=== PATIENT | male | born 1930 | race Caucasian/White ===

== ENCOUNTER → 2017-01-13 | Outpatient (CLI) | payer MEDICARE, MEDICAID ==
[~2017-01-13] MED LIST: ALPR0.254 PO; AMOX-355 PO; AMPH20CA5 PO; APIX2.5T PO; ASP325T; ASP81TEC PO; BETA1TAB15 PO; BISA5TAB8 PO; BUDE10.2 IH; CARV12.52; CARV3.122 PO; CARV6.252 PO; CEFD300C3 PO; CEFU500T63 PO; CHOL2000 PO; CHOL200059 PO; CLPD75T; DEXL30CA2 PO; DILT120C63 PO; DOXY100C2 PO; FLUP2.5T PO; FRSM40T; FURO-124 PO; FURO-125 PO; FURO40TA4 PO; GLIM1TAB PO; HYDR1TAB PO; IRBE300T18 PO; KCL10CCR; LEVO100T7 PO; LEVO112T55 PO; LEVO88TA54 PO; LRT10T; LVT.025T; LVT.088T PO; MAGN400T6 PO; METF500T4 PO; METH4TAB PO; METO-272 PO; MONT10TA24 PO; OMEG-160 PO; OMEG1CAP58 PO; OMEP20CA12 PO; ONDA4TAB8 PO; POTA10CA43 PO; POTA10TA10 PO; POTA10TA36 PO; PRD10T PO; PRD20T PO; PROP15DR OU; RAMI2.5C PO; RMP5C; RT-ALBUINH IH; RT-ALBUINH INH; SENN-36 PO; SIMV20TA3 PO; TIOT18CA2 IH; VIT1CAPS44 PO
--- OUTSIDE RECORDS SUMMARY | 2017-01-13 10:33 | XMS REPORT | Continuity of Care Document ---
Author Author [facility] Organization [facility] Address Unknown Phone Unavailable Care Team Providers Care [employer] Supervisor Name Role Phone DAVID CORDERO MD PCP Insurance Providers Payer Name Policy Number Subscriber Name Relationship Wps Medicare [id number] Benjamin Fulton 18 Self / Same As Patient [employer] [facility] Supp [id number] Benjamin Fulton 18 Self / Same As Patient [facility] [id number] Benjamin Fulton 18 Self / Same As Patient Advance Directives Directive Response Recorded Date/Time Advance Directives Yes 05/31/16 10:05am Health Care Power of Fire Hydrant Operator Nicole Suresh 05/31/16 10:05am Organ Donor No 05/31/16 10:05am Resuscitation Status Full Code 05/31/16 10:05am Chief Complaint and Reason for Visit Chief Complaint PNEUMONIA FX ANKLE Reason for Visit Depression Head ache Severe sepsis Problems Active Problems Medical Problem Onset Date Status Acute bronchitis Unknown Acute CHF (congestive heart failure) Unknown Acute Depression Unknown Acute Head ache Unknown Acute Pleurisy Unknown Acute Pneumonia Unknown Acute Respiratory failure Unknown Acute Severe sepsis Unknown Acute Weakness Unknown Acute Medications Current Home Medications Medication Dose Units Route Directions Days/Qty Instructions Start Date Aspirin 81 Mg 81 Mg Oral Daily 02/02/12 Irbesartan 300 Mg 300 Mg Oral Daily 11/02/15 Carvedilol 6.25 Mg 3.125 Mg Oral Twice A Day TAKES 1/2 (6.25MG) TABLET 11/02/15 Simvastatin 20 Mg 20 Mg Oral Bedtime 11/02/15 Levothyroxine Sodium 88 Mcg 88 Mcg Oral Daily 11/02/15 T[address]ropium [place] 1 Inh 1 Cap Inhalation Daily 11/02/15 Propylene Glycol/Peg 400 15 Ml 1 Drop Each Eye Twice A Day as needed for Dry Eyes 11/02/15 Bisacodyl 5 Mg 5 Mg Oral Bedtime as needed for Constipation 01/20/16 Metformin Hcl 500 Mg 500 Mg Oral Twice A Day 01/20/16 Cholecalciferol (Vitamin D3) 2,000 Unit 2,000 Unit Oral Daily Albuterol Sulfate 18 Gm 2 Puff Inhalation Every 4HRS as needed for Shortness Of Breath 01/21/16 Furosemide 40 Mg 40 Mg Oral Daily 01/21/16 [place]-3/Dha/Epa/Fish Oil 1 Each 1,000 Mg Oral Daily 01/21/16 Magnesium Oxide 400 Mg 400 Mg Oral Daily 04/19/16 Budesonide/Formoterol Fumarate 10.2 Gm 2 Puff Inhalation Twice A Day 04/19/16 Potassium Chloride 10 Meq 10 Meq Oral Daily 06/03/16 Vit C/E/Zn/Coppr/Lutein/Zeaxan 1 Each 1 Cap Oral Twice A Day Cefdinir (Omnicef) 300 Mg 300 Mg Oral Twice A Day 10 06/04/16 Past Home Medications Medication Directions Ordered Status Potassium Chloride 10 Meq Tablet.sa, 09/28/07 Discontinued Loratadine 10 Mg Box, 09/28/07 Discontinued Aspirin 325 Mg Tablet, 09/28/07 Discontinued Levothyroxine Sodium 25 Mcg Tablet, 09/28/07 Discontinued Ramipril 5 Mg Capsule, 09/28/07 Discontinued Clopidogrel Bisulfate 75 Mg Tablet, 09/28/07 Discontinued Carvedilol 12.5 Mg Tablet, 09/28/07 Discontinued Furosemide 40 Mg Tablet, 09/28/07 Discontinued [place]-3/Sturdivant-6/Sturdivant-9 Fatty Acids (Lovaza) 1 Each Capsule, 1000 Mg Oral Daily 02/02/12 Discontinued Ramipril 2.5 Mg Capsule, 2.5 Mg Oral Daily 02/02/12 Discontinued Cholecalciferol 2,000 Unit Capsule, 2000 Unit Oral Daily 03/05/12 Discontinued Simvastatin 20 Mg Tablet, 20 Mg Oral Daily 02/02/12 Discontinued Carvedilol (Coreg) 3.125 Mg Tablet, 1 Each Oral Twice A Day 02/02/12 Discontinued Vit A/Vit C/Vit E/Zinc/Copper 1 Each Tablet, 1 Cap Oral Twice A Day 02/02/12 Discontinued Levothyroxine Sodium (Levothroid) 88 Mcg Tablet, 1 Each Oral Daily 02/02/12 Discontinued Prednisone 20 Mg Tab, 40 Mg Oral Daily 02/20/12 Discontinued Prednisone 20 Mg Tab, 20 Mg Oral Daily 02/20/12 Discontinued Amoxicillin/Clavulanate Potassium 1 Each Tablet, 1 Tab Oral Twice A Day 02/19 Discontinued Acetaminophen/Hydrocodone Bitart 1 Each Tablet, 1 - 2 Each Oral Q4hr Prn 21/11 Discontinued Methylprednisolone 4 Mg/Dose-Pack Tab.ds.pk, 1 Pkt Oral As Directed 11/06/13 Discontinued Doxycycline Hyclate (Vibramycin) 100 Mg Capsule, 100 Mg Oral Twice A Day 07/12 Discontinued Levothyroxine Sodium 112 Mcg Tablet, 112 Mcg Oral Daily 11/02/15 Discontinued Dextroamphetamine/Amphetamine 20 Mg Cap.er.24h, 20 Mg Oral Daily 11/02/15 Discontinued Alprazolam 0.25 Mg Tablet, 0.25 Mg Oral Bedtime as needed for Anxiety Discontinued Dexlansoprazole 30 Mg Cap.bp, 30 Mg Oral Daily 11/02/15 Discontinued Diltiazem Hcl 120 Mg Cap.er.24h, 120 Mg Oral Daily 11/02/15 Discontinued Apixaban 2.5 Mg Tablet, 2.5 Mg Oral Twice A Day 11/02/15 Discontinued Fluphenazine Hcl 2.5 Mg Tablet, 2.5 Mg Oral As Directed 11/02/15 Discontinued Furosemide 20 Mg Tablet, 20 Mg Oral Daily 11/02/15 Discontinued Metoprolol Succinate 50 Mg Tab.er.24h, 50 Mg Oral Daily 11/02/15 Discontinued Omeprazole 20 Mg Capsule., 20 Mg Oral Daily 11/02/15 Discontinued Ondansetron 4 Mg Tab.rapdis, 4 Mg Oral Every 8HRS for Nausea 11/02/15 Discontinued Potassium Chloride 10 Meq Capsule.er, 10 Meq Oral As Directed 11/02/15 Discontinued Metformin Hcl 500 Mg Tablet, 500 Mg Oral Twice A Day 11/02/15 Discontinued Albuterol Sulfate 8.5 Gm Hfa.aer.ad, 2 Puff Inhalation Four Times Daily 11/02 Discontinued Furosemide 40 Mg Tablet, 40 Mg Oral Daily 11/08/15 Discontinued Potassium Chloride 10 Meq Tablet.er, 10 Meq Oral Daily 11/08/15 Discontinued Potassium Chloride 10 Meq Tab.er.prt, 10 Meq Oral Daily 01/21/16 Discontinued Prednisone 10 Mg Tab, 30 Mg Oral Daily 01/22/16 Discontinued Vit C/E/Zn/Coppr/Lutein/Zeaxan 1 Each Capsule, 1 Each Oral Twice A Day Discontinued Montelukast Sodium 10 Mg Tablet, 10 Mg Oral Bedtime 04/19/16 Discontinued Social History Social History Problem Response Recorded Date/Time Alcohol Use Denies Use 05/31/2016 10:08am Recreational Drug Use No 05/31/2016 10:08am Recent Foreign Travel No 05/31/2016 10:19am Recent Infectious Disease Exposure No 05/31/2016 10:19am Hospitalization with Isolation Denies 06/04/2016 12:02pm Sexually Transmitted Disease No 05/31/2016 10:08am Smoking Status Former Smoker 05/31/2016 10:13am Do you dip or chew tobacco? No 05/31/2016 6:52am Query Response Start Date Stop Date Smoking Status Former Smoker 03/30/1986 Hospital Discharge Instructions No hospital discharge instructions. Plan of Care Discharge Date 06/04/16 12:01pm Disposition 01 HOME, SELF-CARE Instructions/Education Provided Bacterial Pneumonia (DC) Prescriptions See Medication Section Care Plan and Goals Functional Status Query Response Date Recorded Patient Orientation Person Normal For Age June 04, 2016 1:40pm Patient Orientation Person Place Time Situation June 04, 2016 12:02pm Comprehension Ability Understands Concepts June 04, 2016 8:00am Allergies, Adverse Reactions, Alerts No known allergies. Immunizations No immunization records. Vital Signs Acute Vital Signs Vital Response Date/Time Temperature (Fahrenheit) 97.2 degrees F (97.6 - 99.5) 06/04/2016 11:58am Temperature (Calculated Celsius) 36.00944 degrees C (36.4 - 37.5) 06/04/2016 6:00am Temperature Source Tympanic 06/04/2016 11:58am Pulse Rate (adult) 90 bpm (60 - 90) 06/04/2016 11:58am Respiratory Rate 20 bpm (12 - 24) 06/04/2016 11:58am O2 Sat by Pulse Oximetry 92 % (88 - 100) 06/04/2016 11:58am Blood Pressure 130/78 mm Hg 06/04/2016 11:58am Blood Pressure Mean 95 mm Hg 06/04/2016 6:00am Pain Numeric Pain Scale 0-No Pain 06/04/2016 11:58am Height (Feet) 5 feet 05/31/2016 10:20am Height (Inches) 11.00 inches 05/31/2016 10:20am Height (Calculated Centimeters) 180.978331 cm 05/31/2016 10:20am Weight (Pounds) 214 pounds 05/31/2016 10:20am Weight (Ounces) 0.0 oz 05/31/2016 10:20am Weight (Calculated Grams) 42386.768 gm 05/31/2016 10:20am Weight (Calculated Kilograms) 97.174355 kilograms 05/31/2016 10:20am Calculated BMI 29.9 05/31/2016 10:20am Results Pending Laboratory Results Test Name Collection Date/Time Pending Microbiology Results Procedure Source Collection Date/Time Procedures Procedure Status Date Provider(s) Tracing only of electrocardiogram Completed 05/31/16 APPLE BOO MD Encounters Encounter Location Arrival/Admit Date Discharge/Depart Date Attending Provider Discharged Inpatient [facility] 05/31/16 8:30am 12:01pm DAVID CORDERO MD Discharged Recurring [facility] 04/10/16 2:30pm 11:59pm WALLY ISSA APRN Recent Diagnosis Depression Head ache Severe sepsis
--- NOTE | 2017-01-16 09:24 | ECHOCARDIOGRAPHY REPORT ---
PROCEDURE PHYSICIAN: ADRIAN DIXON DATE OF PROCEDURE: 01/13/2017 TWO DIMENSIONAL ECHOCARDIOGRAM REPORT PRIMARY PHYSICIAN: Dr. Cuellar OTHER PHYSICIAN: REFERRING PHYSICIAN: ORDERING PHYSICIAN: Dr. Dixon INDICATION FOR THE PROCEDURE: Ischemic cardiomyopathy MEASUREMENTS DERIVED VALUES LV DIAMETER (LAX) NORMALS NORMALS Diastolic 4.7 (3.6-5.2) Eject. Fract. (60%+/-6%) Systolic (2.3-3.9) Diastolic Vol. % Shortening (0.22-0.42) Systolic Vol. Aortic Root 3.4 IVS THICKNESS Diastolic 1.2 (0.6-1.1) LVPW THICKNESS Diastolic 1.2 (0.6-1.1) LA DIAMETER Systolic 5.5 (2.1-3.7) DESCRIPTION: 2-Dimensional echocardiography shows distal septal and apical hypokinesis. Global left ventricular systolic function appears fairly well preserved. Left ventricular ejection fraction is approximately 45%. Aortic, mitral and tricuspid valve leaflets show good leaflet excursion. There is mild mitral annular calcification. There is mild aortic valve sclerosis. There is moderate enlargement of the left atrium. Echodense structures in the right heart are consistent with pacemaker lead/leads. Doppler imaging shows mild mitral, tricuspid and aortic regurgitation. There is no Doppler evidence of significant valvular stenosis. Pulmonary artery systolic pressure is estimated to be approximately 20 mmHg. Good subcostal views are not available. The study is not adequate for analysis of intracardiac shunt. Inferior vena cava does not appear to be dilated. CONCLUSIONS: 1. Mild impairment of global left ventricular systolic function with an ejection fraction of approximately 45%. 2. Distal septal and apical hypokinesis. 3. Mild mitral annular calcification, aortic valve sclerosis without evidence of significant valvular stenosis. 4. Trivial to mild aortic, mitral and tricuspid regurgitation. 5. No evidence of significant valvular stenosis. 6. Pulmonary artery systolic pressure is estimated to be is within normal limits. Job ID: [id number] Dictated Date: 01/15/2017 11:16:00 Can Feeder Date: 01/16/2017 09:15:23 / maciel
== END ==
LOC: CARD 10:29
PROVIDERS: ATTEND Internal Medicine Cardiovascular Disease
DX: I25.10 Atherosclerotic heart disease of native coronary artery without angina pectoris (principal); I25.5 Ischemic cardiomyopathy; J43.8 Other emphysema; E11.9 Type 2 diabetes mellitus without complications
CPT/HCPCS: 93306

== ENCOUNTER 2017-03-24 06:58 | Day surgery (SDC) | payer MEDICARE, MEDICAID ==
[2017-03-24] VITALS (8 sets, daily range): BP systolic 136–163; BP diastolic 71–81
[~2017-03-24] VITALS: Ht 180.3 cm; Wt 105.2 kg
[~2017-03-24 06:58] MED LIST changes: -CEFU500T63 PO; -GLIM1TAB PO; -LEVO100T7 PO; -SENN-36 PO
[2017-03-24] MEDS ORDERED: NS IV 1000 ML 1,000 ML ONE (07:06)
[2017-03-24] MEDS ORDERED: HEParin (CATH LAB) 1,000 ML IV ONE (07:06)
[2017-03-24] MEDS ORDERED: LIDOCAINE 1% INJ 20 ML (XYLOCAINE) VIAL ONE (07:06)
[2017-03-24] MEDS ORDERED: ceFAZolin 1,000 MG (ANCEF) VIAL IV ONE (07:15)
[2017-03-24] MEDS ORDERED: BACITRACIN INJECTION 50,000 UNIT, SODIUM CHLORIDE 0.9% IRRIGATIO 500 ML IR ONE ×2 (07:15)
[2017-03-24] MEDS ORDERED: NS IV 1000 ML 1,000 ML IV SCH (07:30)
[2017-03-24 07:36] LABS: MEAN PLATELET VOLUME 9.4 FL (7.4-10.4); RED BLOOD COUNT 4.14 10^6/uL (4.35-5.85); RED CELL DISTRIBUTION WIDTH 13.9 % (10.0-14.5); WHITE BLOOD COUNT 7.1 10^3/uL (4.3-11.0)
[2017-03-24] MEDS ORDERED: ceFAZolin 1,000 MG (ANCEF) VIAL ONE (07:38)
[2017-03-24] MEDS ORDERED: NS (IVPB) 50 ML ONE (07:39)
[2017-03-24 07:46] LABS: PROTHROMBIN TIME PATIENT 13.1 SEC (12.2-14.7)
[2017-03-24 07:57] LABS: ALANINE AMINOTRANSFERASE 14 U/L (0-55); ALBUMIN 3.8 G/DL (3.2-4.5); ANION GAP 11 MMOL/L (5-14); ASPARTATE AMINO TRANSFERASE 12 U/L (5-34); BILIRUBIN,TOTAL 0.6 MG/DL (0.1-1.0); BLOOD UREA NITROGEN 19 MG/DL (7-18); BUN/CREATININE RATIO 17; CALCIUM 9.1 MG/DL (8.5-10.1); CARBON DIOXIDE 21 MMOL/L (21-32); CHLORIDE 105 MMOL/L (98-107); CHOLESTEROL 110 MG/DL (< 200); CREATININE SERUM 1.13 MG/DL (0.60-1.30); DIRECT LDL 64 MG/DL (1-129); GFR ESTIMATED > 60; GLUCOSE 171 MG/DL (70-105); POTASSIUM 4.5 MMOL/L (3.6-5.0); SODIUM 137 MMOL/L (135-145); TOTAL PROTEIN 7.2 G/DL (6.4-8.2); TRIGLYCERIDES 84 MG/DL (<150); VLDL CHOLESTEROL 17 MG/DL (5-40)
[2017-03-24] MEDS ORDERED: GLIM1TAB PO (08:21)
[2017-03-24] MEDS ORDERED: SENN-36 PO (08:21)
[2017-03-24] MEDS ORDERED: LEVO100T7 PO (08:21)
[2017-03-24] MEDS ORDERED: OMEP20CA12 PO (08:21)
--- NOTE | 2017-03-24 08:49 | Cardiac Procedure Note-CS/ASA ---
Pre-Procedure Note Pre-Op Procedure Note H&P Reviewed The H&P was reviewed, patient examined and no changes noted. Date H&P Reviewed: Mar 24, 2017 Time H&P Reviewed: 08:48 Conscious Sedation Pre-Proced Time Reviewed: 08:48 ASA Class: 3 Airway Mallampati Classification: ([place] appropriate class) I. II. III, IV Lungs Heart ASA score ASA 1: a normal healthy patient ASA 2: a patient with a mild systemic disease (mid diabetes, controlled hypertension, obesity ASA 3: a patient with a severe systemic disease that limits activity (angina , COPD, prior Myocardial infarction) ASA 4: a patient with an incapacitating disease that is a constant threat to life (CHF, renal failure) ASA 5: a moribund patient not expected to survive 24 hrs. (ruptured aneurysm) ASA 6: a declared brain patient whose organs are being harvested. For emergent operations, add the letter E after the classification Grade 3 Sedation Plan: Analgesia, Amnesia, Plan communicated to team members, Discussed options with patient/fam, Discussed risks with patient/fam Note The patient is an appropriate candidate to undergo the planned procedure, sedation, and anesthesia. The patient immediately re-assessed prior to indication. ADRIAN RAMIREZ MD FACP [facility] Mar 24, 2017 08:49
[2017-03-24] MEDS ORDERED: MIDAZOLAM 5 MG/5 ML (VERSED) VIAL ONE (08:50)
[2017-03-24] MEDS ORDERED: diphenhydrAMINE 50 MG/ML INJ (BENADRYL) ONE (08:50)
[2017-03-24] MEDS ORDERED: fentaNYL INJECTION 100 MCG/2 ML AMP ONE (08:50)
[2017-03-24] MEDS ORDERED: NEO/POLY/BAC (NEOSPORIN) OINT 15 GM TUBE ONE (09:46)
[2017-03-24] MEDS ORDERED: CEFU500T63 PO (10:07)
--- NOTE | 2017-03-24 10:11 | Discharge Inst-Post Device ---
Discharge Inst-Post Device Follow up/Plan F/u with Dr Dixon on 03/27/17 Heart Healthy Diet Do not lift arm on side of device placement above head for 1 week Do not push and pull heavy objects for 1 weeks Activity as tolerated. Leave dressing on until follow up at the office. ADRIAN DIXON MD FACP [facility] Mar 24, 2017 10:11
--- NOTE | 2017-03-24 10:12 | Discharge Inst-Cardiology ---
Discharge Inst-Cardiac Discharge Medications New Medications: Cefuroxime Axetil (Cefuroxime) 500 Mg Tablet 500 MG PO BID, #10 TAB 0 Refills Continued Medications: Albuterol Sulfate (Ventolin Hfa) 18 Gm Hfa.aer.ad 2 PUFF INH Q4H PRN for SHORTNESS OF BREATH Aspirin (Aspirin Ec 81 Mg) 81 Mg Tabec 81 MG PO DAILY Budesonide/Formoterol Fumarate (Symbicort 160-4.5 Mcg Inhaler) 10.2 Gm Hfa.aer.ad 2 PUFF IH BID, INHALER Cholecalciferol (Vitamin D3) (Vitamin D-3) 2,000 Unit Tablet 2000 UNIT PO DAILY, TAB Furosemide (Furosemide) 40 Mg Tablet 40 MG PO DAILY, TAB Glimepiride (Glimepiride) 1 Mg Tablet 1 MG PO DAILY, TAB Irbesartan (Irbesartan) 300 Mg Tablet 300 MG PO DAILY, TAB Levothyroxine Sodium (Levothyroxine Sodium) 100 Mcg Tablet 100 MCG PO DAILY, TAB Magnesium Oxide (Magnesium Oxide) 400 Mg Tablet 400 MG PO DAILY, TAB Metformin HCl (Metformin HCl) 500 Mg Tablet 500 MG PO BID, TAB [place]-3/Dha/Epa/Fish Oil (Fish Oil 1,000 mg Softgel) 1 Each Capsule 1000 MG PO DAILY Omeprazole (Omeprazole) 20 Mg Capsule.dr 20 MG PO DAILY, CAP Potassium Chloride (Potassium Chloride) 10 Meq Tablet.er 10 MEQ PO DAILY, TAB Propylene Glycol/Peg 400 (Systane 0.3-0.4% Eye Drops) 15 Ml Drops 1 DROP OU BID PRN for DRY EYES Sennosides (Senokot) 8.6 Mg Tablet 2 TAB PO DAILY PRN for CONSTIPATION-5TH LINE, TAB Simvastatin (Simvastatin) 20 Mg Tablet 20 MG PO HS, TAB Tiotropium [place] (Spiriva) 1 Inh Aerp 1 CAP IH DAILY, EA Vit C/E/Zn/Coppr/Lutein/Zeaxan (Preservision Areds 2 Softgel) 1 Each Capsule 1 CAP PO BID, ADRIAN SIMPSON MD FACP [facility] Mar 24, 2017 10:12
--- NOTE | 2017-03-24 11:46 | Diagnostic Imaging Report ---
INDICATION: Arrhythmia Portable chest 11:25 AM There is a dual-chamber pacemaker. 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 Heart size and pulmonary vascularity are normal. Lungs are clear. There are no effusions or pneumothoraces. IMPRESSION: Negative chest Dictated by: Dictated on workstation # [id number]
--- NOTE | 2017-03-24 11:55 | OPERATIVE REPORT ---
DATE OF SERVICE: 03/24/2017 PREOPERATIVE DIAGNOSIS: Pacemaker at elective replacement indicator. POSTOPERATIVE DIAGNOSIS: Pacemaker at elective replacement indicator. PROCEDURE: Dual-chamber pacemaker pulse generator change. ESTIMATED BLOOD LOSS: Less than 15 cc. INDICATIONS: The patient is an 86-year-old gentleman who had a dual-chamber pacemaker placed by Dr. Liu in [place], [place] in 2002. The pacemaker has reached elective replacement indicator. The informed consent was obtained for pulse generator change. DESCRIPTION OF PROCEDURE: He was brought to the cardiac catheterization laboratory. The left prepectoral area was prepared and draped in the usual sterile fashion. Lidocaine 1% was used for local anesthesia. Sharp and blunt dissection was used to remove the pacemaker from the pacemaker pocket and the pacemaker was detached from the leads. The leads were tested. The right atrial lead is Medtronic model 5076-52 with serial #[id number]. The atrial capture threshold is 1 volt at 0.5 milliseconds. Atrial lead impedance is 514 ohms. P-wave is measured at 1.3 millivolts. The right ventricular lead is Medtronic model 5076-58 with serial #[id number]. The right ventricular capture threshold is 1.4 volts at 0.4 milliseconds. The ventricular lead impedance is 476 ohms. R-waves are measured at 3.8 millivolts. The pacemaker pocket was thoroughly irrigated with an antibiotic solution. Good hemostasis was assured. The leads were attached to a new pulse generator. This is Medtronic Advisa MRI SureScan with serial #[id number]. The leads and the device were placed back in the pocket and the pocket was closed in 2 layers using 3.0 Vicryl. The patient tolerated the procedure well. Job ID: [id number] DocumentID: [id number] Dictated Date: 03/24/2017 09:54:12 Manager Purchasing Date: 03/24/2017 10:55:39 Dictated By: ADRIAN RAMIREZ MD, MA, FACP, FACC,
== END 2017-03-24 12:30 | disposition home or self-care (01) ==
LOC: CATH 06:58 → SURG 10:21 → CATH 12:30
PROVIDERS: ATTEND Nurse Practitioner Family
DX: Z45.010 Encounter for checking and testing of cardiac pacemaker pulse generator [battery] (principal); R00.1 Bradycardia, unspecified; R06.09 Other forms of dyspnea; E03.9 Hypothyroidism, unspecified; I25.10 Atherosclerotic heart disease of native coronary artery without angina pectoris; E11.9 Type 2 diabetes mellitus without complications; J44.9 Chronic obstructive pulmonary disease, unspecified; E78.5 Hyperlipidemia, unspecified; Z95.1 Presence of aortocoronary bypass graft; Z87.891 Personal history of nicotine dependence; Z79.84 Long term (current) use of oral hypoglycemic drugs; Z79.899 Other long term (current) drug therapy
CPT/HCPCS: 33228; 36415; 71010; 80053; 80061; 85027; 85610; 85730; 87081

== ENCOUNTER 2017-08-20 03:21 | Inpatient (IN) | payer MEDICARE, MEDICAID ==
[~2017-08-20] VITALS: Ht 180.3 cm; Wt 105.2 kg
[~2017-08-20 03:21] MED LIST changes: -BUDE10.2 IH; +BUDE10.2 INH; +CEFU500T63 PO; +GLIM1TAB PO; +LEVO100T7 PO; +SENN-36 PO; -TIOT18CA2 IH; +TIOT18CA2 INH
[2017-08-20] MEDS ORDERED: cefTRIAXone 1 GM (ROCEPHIN) VIAL IV STA (03:35)
[2017-08-20] MEDS ORDERED: NS IV 500 ML 500 ML IV ONE ×2 (03:35→04:41)
[2017-08-20] MEDS ORDERED: NS (IVPB) 50 ML ONE (03:37)
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
[2017-08-20] MEDS ORDERED: ACETAMINOPHEN 500 MG TAB (TYLENOL) PO PRN ×2 (03:45→06:45)
[2017-08-20 04:09] LABS: BASOPHILS % (AUTO) 0 % (0-10); EOSINOPHILS # (AUTO) 0.4 10^3/uL (0.0-0.3); EOSINOPHILS % (AUTO) 3 % (0-10); LYMPHOCYTES # (AUTO) 0.5 X 10^3 (1.0-4.0); LYMPHOCYTES % (AUTO) 4 % (12-44); MEAN CORPUSCULAR HEMOGLOBIN 31 PG (25-34); MEAN CORPUSCULAR HGB CONC 32 G/DL (32-36); MEAN CORPUSCULAR VOLUME 97 FL (80-99); MONOCYTES # (AUTO) 0.9 X 10^3 (0.0-1.0); MONOCYTES % (AUTO) 7 % (0-12); NEUTROPHILS % (AUTO) 86 % (42-75); PLATELET COUNT 215 10^3/uL (130-400); RED BLOOD COUNT 4.12 10^6/uL (4.35-5.85); RED CELL DISTRIBUTION WIDTH 14.1 % (10.0-14.5); WHITE BLOOD COUNT 12.9 10^3/uL (4.3-11.0)
[2017-08-20 04:20] LABS: INR 0.9 (0.8-1.4); PROTHROMBIN TIME PATIENT 12.6 SEC (12.2-14.7)
[2017-08-20 04:30] LABS: BAND NEUTROPHILS 1 %; BASOPHILS % (MANUAL) 0 %; EOSINOPHILS % (MANUAL) 2 %; LYMPHOCYTES % (MANUAL) 2 %; NEUTROPHILS % (MANUAL) 88 %; REACTIVE LYMPHOCYTES 2 %
[2017-08-20] MEDS ORDERED: AZITHROMYCIN INJECTION 500 MG in NS (IVPB) 250 ML IV ONE (04:30)
[2017-08-20 04:34] LABS: ALANINE AMINOTRANSFERASE 26 U/L (0-55); ALBUMIN 3.8 GM/DL (3.2-4.5); ANION GAP 13 MMOL/L (5-14); ASPARTATE AMINO TRANSFERASE 22 U/L (5-34); BILIRUBIN,TOTAL 0.6 MG/DL (0.1-1.0); BLOOD UREA NITROGEN 21 MG/DL (7-18); BUN/CREATININE RATIO 21; CALCIUM 8.6 MG/DL (8.5-10.1); CARBON DIOXIDE 21 MMOL/L (21-32); CHLORIDE 105 MMOL/L (98-107); CREATININE SERUM 1.01 MG/DL (0.60-1.30); GFR ESTIMATED > 60; GLUCOSE 115 MG/DL (70-105); MAGNESIUM 1.8 MG/DL (1.8-2.4); POTASSIUM 4.2 MMOL/L (3.6-5.0); SODIUM 139 MMOL/L (135-145); TOTAL PROTEIN 7.5 GM/DL (6.4-8.2); hs C REACTIVE PROTEIN 1.34 MG/DL (0.00-0.50)
[2017-08-20] MEDS ORDERED: NS IV 1000 ML 1,000 ML IV ONE (04:41)
--- NOTE | 2017-08-20 06:12 | Diagnostic Imaging Report ---
PROCEDURE: CT abdomen and pelvis without contrast. TECHNIQUE: Multiple contiguous axial images were obtained through the abdomen and pelvis without the use of intravenous contrast. INDICATION: Fever, abdominal distention and pain Correlation is made to thoracic CT performed on 10/27/2016. There has been development of patchy airspace disease in the lower lobes, greater on the left with small amount of pleural fluid. Calcified granuloma is noted in the right hilum. There is mild/moderate hiatal hernia again demonstrated. Pleural calcification is noted on the right. Unenhanced images of the liver are unremarkable. Note is made of splenic calcification which may be due to granuloma. Calcified stones are noted in the neck of the gallbladder. No gallbladder wall thickening is identified. No pancreatic or adrenal gland abnormality is identified. Evaluation of the kidneys is limited without intravenous contrast. There does appear to be dominant cyst arising from the lower pole of the left kidney measuring 5.7 cm in diameter. No free fluid is seen in the abdomen or pelvis. A small umbilical hernia containing fat. There is mild aortoiliac atherosclerotic calcification. Numerous sigmoid diverticula are noted. There is also fatty herniation into the left inguinal canal with surgical clip noted in the adjacent fat. IMPRESSION: Pneumonitis or pneumonia noted in the lung bases, greater on the left. Pleural calcification could be related to previous occupational exposure and clinical correlation is recommended. Fat-containing hernias are noted at the level of the umbilicus and left inguinal canal. Otherwise, there is no evidence of acute abdominal or pelvic abnormality. Dictated by: Dictated on workstation # [id number]
[2017-08-20] MEDS ORDERED: ONDANSETRON 4 MG/2 ML (SDV) Z0FRAN IV PRN (06:45)
--- NOTE | 2017-08-20 07:03 | Diagnostic Imaging Report ---
INDICATION: Fever with abdominal pain Portable upright view of the chest is obtained with comparison made to study of 03/24/2017. There is mild cardiomegaly. There is bilateral air trapping. No pneumothorax or consolidation is identified. Interstitial prominence is noted in both lungs without evidence of new infiltrate or other significant change. IMPRESSION: Cardiomegaly and probable chronic interstitial markings in the lungs. No new abnormality or adverse change is seen. Dictated by: Dictated on workstation # [id number]
[2017-08-20] MEDS: NS IV 1000 ML 1,000 ML IV SCH ×3 (07:47→18:54)
[2017-08-20 08:00] VITALS: BP 100/59
[2017-08-20] MEDS ORDERED: ASPI-983 PO (08:02)
--- NOTE | 2017-08-20 08:42 | History & Physical-Hospitalist ---
HPI History of Present Illness: HPI/Chief Complaint Mr. Francisco is an 86-year-old white male who noted the onset of a dry cough 5 days ago. He reported no other symptoms denying shortness of breath chills or fever at that time. He felt well enough to visit his in the long-term care facility yesterday and denied increased dyspnea on exertion over baseline. He will from sleep last night with Reiger's and fatigue and mild shortness of breath. He was sent to the hospital where his temperature was over 102 with chest x-ray revealing left lower lobe infiltrate. He was not significantly hypotensive as his baseline blood pressure is in the 100/60 range with a history of ischemic cardiomyopathy. Echo last year revealing ejection fraction of 45 percent without evidence for pulmonary hypertension or significant valvular pathology. He is significant for really meant of community-acquired pneumonia with sepsis not severe. He does have underlying COPD as well and has had several admissions for acute exacerbations including pneumonia in the past. He is up-to-date on pneumococcal vaccination. Date Seen 08/20/17 Time Seen by Provider: 08:30 Attending Physician Hailey Michelle DO PCP David Cordero MD Referring Physician Date of Admission Aug 20, 2017 at 05:00 Home Medications & Allergies Home Medications Reviewed patient Home Medication Reconciliation Form Allergies Allergies Coded Allergies No Known Drug Allergies (Rfboioxs46/18/07) Past Lkgrobp-Cwqapo-Miespr Hx Patient Social History Alcohol Use: Denies Use Recreational Drug Use: No Smoking Status: Never a Smoker Former Smoker, Quit: Mar 24, 1992 Type Used: Cigarettes 2nd Hand Smoke Exposure: Yes Physical Abuse Screen: No Sexual Abuse: No Recent Foreign Travel: No Contact w/other who traveled: No Recent Hopitalizations: No Recent Infectious Disease Expo: No Immunizations Up To Date Tetanus Booster (TDap): Unknown Date of Pneumonia Vaccine: Oct 30, 2015 Date of Influenza Vaccine: Aug 30, 2015 Seasonal Allergies Seasonal Allergies: No Surgeries Yes (NASAL POLYPS) CABG, Open Heart Surgery, Pacemaker Respiratory Yes COPD, Pneumonia Currently Using CPAP: No Currently Using BIPAP: No Cardiovascular Yes Coronary Artery Disease, Hypertension Neurological No Reproductive System Hx Reproductive Disorders: No Sexually Transmitted Disease: No Genitourinary No Gastrointestinal Yes Chronic Constipation Musculoskeletal Yes Arthritis Endocrine History of Endocrine Disorders: Yes Endocrine Disorders: Hypothyroidsim, Diabetes, Non-Insulin dep HEENT History of HEENT Disorders: No Loss of Vision: Left Hearing Impairment: Hard of Hearing Cancer Yes Prostate Psychosocial History of Psychiatric Problem: Yes Behavioral Health Disorders: Anxiety, Depression Integumentary History of Skin or Integumenta: No Blood Transfusions History of Blood Disorders: No Adverse Reaction to a Blood Tr: No Family Medical History Significant Family History: No Pertinent Family Hx Family Hx: Patient reports no known family medical history. Review of Systems Constitutional: chills, diaphoresis, fever, weakness Respiratory: see HPI, cough, No dyspnea on exertion, No hemoptysis, No orthopnea, No phlegm, No short of breath, No stridor, No wheezing, No other Cardiovascular: No no symptoms reported, No see HPI, No chest pain, edema, Hx of Intervention, No palpitations, No syncope, vascular heart diseas, No other Physical Exam Physical Exam Vital Signs Vital Sign - Last 12Hours 08/20/17 08/20/17 08/20/17 03:22 05:50 10:53 Temp 101.5 Pulse 99 Resp 20 B/P (MAP) 163/88 Pulse Ox 98 O2 Delivery Room Air O2 Flow Rate 2.00 FiO2 28 Capillary Refill : Less Than 3 Seconds General Appearance: No Apparent Distress (my arrival for evaluations morning patient also reports that he is hungry and waiting for breakfast.), Obese Neck: Full Range of Motion, Normal Inspection, Non Tender, Supple, Carotid Bruit Respiratory: Chest Non Tender, No Accessory Muscle Use, No Respiratory Distress , Other (lower lobe rales are noted with egophony and fascicular breath sounds. Elsewhere the chest is clear no wheezing is noted.) Cardiovascular: Regular Rate, Rhythm, No JVD, Systolic Murmur (off note of the left lower sternal border crescendo decrescendo in nature.), Gallop/S4, Other ( race edema right lower extremity left no edema) Extremity: Normal Capillary Refill, Normal Inspection, Normal Range of Motion, Non Tender, Pedal Edema (trace right lower extremity only) Neurologic/Psychiatric: Alert, Oriented x3 Results Results/Procedures Lab Laboratory Tests 08/20/17 03:56 08/21/17 05:19 Assessment/Plan Admission Diagnosis 1. Left lower lobe pneumonia with sepsis not severe. Lactate was elevated patient has received 30 mL/kg fluid he is at his baseline level of blood pressure will hold diuretic therapy today and continue IV fluids at current rate. This should be considered community-acquired continue Rocephin and Zithromax. 2. History of chronic systolic and diastolic heart failure currently appears to be compensated due to underlying ischemic heart disease. 3. COPD 4. 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 Clinical Quality Measures DVT/VTE Risk/Contraindication: Risk Factor Score Per Nursin RFS Level Per Nursing on Admit: 3=High DAVID CORDERO MD Aug 20, 2017 08:42
[2017-08-20] MEDS ORDERED: SENNOSIDES 8.6 MG (SENOKOT) TAB PO PRN (08:45)
[2017-08-20] MEDS ORDERED: metFORMIN 500 MG (GLUCOPHAGE) TAB PO SCH (09:00)
[2017-08-20] MEDS ORDERED: RT-ALBUTEROL SULF 2.5 MG/3 ML PRE-MIX VIAL IH PRN (09:30)
[2017-08-20] MEDS: GLIMEPIRIDE 1 MG (AMARYL) TAB PO SCH (10:21)
[2017-08-20] MEDS: LEVOTHYROXINE 100 MCG (LEVOTHROID) TAB PO SCH (10:21)
[2017-08-20] MEDS: ASPIRIN E.C. 81 MG (ECOTRIN) TAB PO SCH (10:21)
--- NOTE | 2017-08-20 10:35 | Physical Therapy Evaluation ---
PT Evaluation-General Medical Diagnosis Admission Date Aug 20, 2017 at 05:00 Medical Diagnosis: sepsis/pneumonia Onset Date: Aug 20, 2017 Therapy Diagnosis Therapy Diagnosis: debility Height/Weight Height (Feet): 5 Height (Inches): 11.00 Weight (Pounds): 232 Weight (Ounces): 0.0 Precautions Precautions/Isolations: Standard Precautions Referral Physician: Viviana Reason for Referral: Evaluation/Treatment Medical History Pertinent Medical History: Arthritis, CAD, COPD, DM, HTN, Hypothroidism, Prostate CA Current History ED via EMS with fever Reviewed History: Yes Social History Home: Apartment Current Living Status: Alone Entry Into Home: Level Entry Prior/Core FIM Prior Level of Function Functional [place] Measure 0=Not Assessed/NA 4=Minimal Assistance 1=Total Assistance 5=Supervision or Setup 2=Maximal Assistance 6=Modified [place] 3=Moderate Assistance 7=Complete [place] Bed Mobility: 6 Transfers (B,C,W/C) (FIM): 6 Gait: 6 uses cane or FWW PLOF PT Evaluation-Current Subjective Patient agree to PT. Patient states he is feeling better. Pain Numeric Pain Scale: 0-No Pain Location: No Pain Reported Objective Patient Orientation: Normal For Age Problem Solving: Good Attachments: Oxygen (2L), IV ROM/Strength ROM Lower Extremities bilateral LE WNL Strenght Lower Extremities bilateral LE WNL Integumentary/Posture Integumentary refer to nursing notes Bowel Incontinence: No Bladder Incontinence: No Posture WNL Neuromuscular (Tone, Coordination, Reflexes) grossly intact Sensory Vision: Wears Glasses Hearing: Functional Sensation Right Lower Extremit: Intact Sensation Left Lower Extremity: Intact Transfers Functional [place] Measure 0=Not Assessed/NA 4=Minimal Assistance 1=Total Assistance 5=Supervision or Setup 2=Maximal Assistance 6=Modified [place] 3=Moderate Assistance 7=Complete [place] Transfers (B, C, W/C) (FIM): 6 Scootin Rollin Supine to/from Sit: 6 Sit to/from Stand: 6 Gait Mode of Locomotion: Walk Anticipated Mode of Locomotion: Walk Gait (FIM): 6 Distance (FIM): 3=150 ft Distance: 250' Gait Level of Assist: 6 Gait Assistive Device: FWW Comments/Gait Description steady, safe gait sequence Balance Sitting Static: Normal Sitting Dynamic: Normal Standing Static: Normal Standing Dynamic: Normal Assessment/Needs 86 y.o. male, will benefit from short term skilled PT to address functional mobility to ensure safe return to home at [facility]. Rehab Potential: Good PT Senior Living Goals Science Liaison Goals PT Science Liaison Goals Time Frame: Aug 27, 2017 Transfers (B,C,W/C) (FIM): 6 Gait (FIM): 6 Gait distance (FIM): 3=150 ft Gait Level of Assist: 6 Gait Assistive Device: FWW PT Plan Problem List Problem List: Activity Tolerance Treatment/Plan Treatment Plan: Continue Plan of Care Treatment Plan: Education, Functional Activity Gopal, Functional Strength, Gait , Safety, Therapeutic Exercise Treatment Duration: Aug 27, 2017 Frequency: 6 times per week Estimated Hrs Per Day: .25 hour per day Patient and/or Family Agrees t: Yes Discharge Recommendations Therapy D/C Recommendations: Home Independently Time/GCodes Time In: 930 Time Out: 945 Total Billed Treatment Time: 15 Total Billed Treatment 1 visit EVLowC 15 min GWENDOLYN HOGAN PT Aug 20, 2017 10:35
[2017-08-20] MEDS: UMECLIDINIUM BROMIDE (INCRUSE ELLIPTA) 7'S IH SCH (10:49)
[2017-08-20] MEDS: RT-ADVAIR HFA 115/21 MCG PER PUFF IH SCH ×2 (10:49→21:03)
[2017-08-20 10:53] VITALS: BP 100/59
[2017-08-20 12:00] VITALS: BP 100/61
[2017-08-20] MEDS ORDERED: NS IV 500 ML 500 ML IV SCH ×3 (12:51→13:15)
[2017-08-20] MEDS: inSUlin (REGULAR) HUMAN 1 UNIT/0.01 ML (CHARGE PER UNIT) SC SCH ×3 (13:32→21:20)
[2017-08-20] MEDS: RT-ALBUTEROL SULF 2.5 MG/3 ML PRE-MIX VIAL IH SCH ×2 (15:55→21:03)
--- NOTE | 2017-08-20 15:56 | Occupational Therapy Eval ---
OT Evaluation-General/PLF Medical Diagnosis Admission Date Aug 20, 2017 at 05:00 Medical Diagnosis: sepsis/pneumonia Onset Date: Aug 20, 2017 Therapy Diagnosis Therapy Diagnosis: decr activity tolerance Height/Weight Height (Feet): 5 Height (Inches): 11.00 Weight (Pounds): 232 Weight (Ounces): 0.0 Precautions Precautions/Isolations: Fall Prevention, Standard Precautions Safety Interventions: None Referral Physician: Viviana Referral Reason: Evaluation/Treatment Medical History Pertinent Medical History: Arthritis, CABG, CAD, COPD, DM, HTN, Hypothroidism, Prostate CA Additional Medical History Pacemaker. Chronic constipation. hard of hearing. Anxiety, depression. Pt reported macular degeneration (" I get shots in my eyes") Current History Admitted with fever, shaking Social History Home: Apartment ([place]) Current Living Status: Alone Entry Into Home: Level Entry ADL-Prior Level of Function ADL PLOF Comments Pt manages his basic self care needs. He still drives and is retired from [employer]. He is but his has been a resident at [facility] for over a year. DME/Equipment: Grab Bars, Shower, Tall Toilet OT Current Status Subjective Pt seen in room, up in recliner, agreeable to OT. No pain reported Appearance Alert, cooperative Mental Status/Objective Attachments: IV, Oxygen Current Glasses/Contacts: Yes Hand Dominance: Right Upper Extremity ROM Grossly WFL bilat Upper Extremity Strength grossly 5/5 bilat ADL-Treatment ADL-Current Pt got up out of recliner without assistance. Walked to bathroom, FWW, got on and off toilet (using grab bars and FWW), managed his clothing and hygiene and walked back to his recliner, FWW. No LOB observed. Assistance needed to manage O2 tubing and IV. Pt fatigued after toileting but said he feels much better than he did this morning, Functional [place] Measure 0=Not Assessed/NA 4=Minimal Assistance 1=Total Assistance 5=Supervision or Setup 2=Maximal Assistance 6=Modified [place] 3=Moderate Assistance 7=Complete IndependenceIRFPAI Quality Coding Scale 6 Independent with activity with or without an assistive device 5 Patient requires set up or clean up by helper. Patient completes activity by themselves 4 Supervision or touching assist (CGA). [place]red provide cues , steadying assist 3 The helper provides less than half the effort to complete the activity 2 The helper provides more than half the effort to complete the activity 1 Dependent. The helper does all the effort to complete an activity 7 Patient refused to complete or attempt activity 9 The patient did not perform the activity before the current illness or injury 88 Not attempted due to Medical conditions or safety concerns Toileting (FIM): 6 Toilet/Commode Transfer (FIM): 6 Education OT Patient Education: Modified ADL techniques, Purpose of tx/functional activities, Rehab process Teaching Recipient: Patient Teaching Methods: Discussion Response to Teaching: Verbalize Understanding OT Legal Librarian Goals Legal Librarian Goals Time Frame: Aug 27, 2017 Pt able to tolerate 15 minutes functional activity, pt able to verbalize three ways to conserve energy at home Additional Goals: 2-Verbalize Understanding 1=Demonstrate adherence to instructed precautions during ADL tasks. 2=Patient will verbalize/demonstrate understanding of assistive devices/ modifications for ADL. 3=Patient will improve strength/tolerance for activity to enable patient to perform ADL's. OT Education/Plan Problem List/Assessment Assessment: Decreased Activ Tolerance Pt would benefit from skilled OT to increase his activity tolerance to allow him to safely return home after hospitalization for pneumonia Discharge Recommendations Plan/Recommendations: Continue POC Treatment Plan/Plan of Care Treatment,Training & Education: Yes Patient would benefit from OT for education, treatment and training to promote independence in ADL's, mobility, safety and/or upper extremity function for ADL' s. Plan of Care: UE Funct Exercise/Act, OTHER (Energy conservation education) Treatment Duration: Aug 27, 2017 Frequency: 5 times per week Estimated Hrs Per Day: .25 hour per day Agreement: Yes Rehab Potential: Good Time/GCodes Start Time: 15:15 Stop Time: 15:35 Total Time Billed (hr/min): 20 Billed Treatment Time visit, 20 minutes evaluation low intensity TANNER DE LUNA OT Aug 20, 2017 15:56
[2017-08-20 16:52] VITALS: BP 114/67
[2017-08-20 19:54] VITALS: BP 111/67
[2017-08-20] MEDS: SIMvastatin 20 MG (ZOCOR) TAB PO SCH (21:33)
[2017-08-21] VITALS: BP 119/71
[2017-08-21] MEDS: cefTRIAXone 1 GM/NS 50 ML IVPB IV SCH ×2 (03:48)
[2017-08-21 04:00] VITALS: BP 122/68
[2017-08-21] MEDS ORDERED: AZITHROMYCIN 250 MG/NS 250 ML IVPB IV SCH ×2 (05:00)
[2017-08-21] MEDS: NS IV 1000 ML 1,000 ML IV SCH (05:28)
[2017-08-21 05:38] LABS: BASOPHILS % (AUTO) 0 % (0-10); EOSINOPHILS # (AUTO) 0.5 10^3/uL (0.0-0.3); EOSINOPHILS % (AUTO) 5 % (0-10); LYMPHOCYTES # (AUTO) 0.6 X 10^3 (1.0-4.0); LYMPHOCYTES % (AUTO) 5 % (12-44); MEAN CORPUSCULAR HGB CONC 32 G/DL (32-36); MEAN CORPUSCULAR VOLUME 98 FL (80-99); MEAN PLATELET VOLUME 9.1 FL (7.4-10.4); MONOCYTES # (AUTO) 1.3 X 10^3 (0.0-1.0); MONOCYTES % (AUTO) 11 % (0-12); NEUTROPHILS # (AUTO) 9.4 X 10^3 (1.8-7.8); NEUTROPHILS % (AUTO) 80 % (42-75); PLATELET COUNT 207 10^3/uL (130-400); RED BLOOD COUNT 3.27 10^6/uL (4.35-5.85); RED CELL DISTRIBUTION WIDTH 14.2 % (10.0-14.5); WHITE BLOOD COUNT 11.8 10^3/uL (4.3-11.0)
[2017-08-21 05:40] LABS: MEAN CORPUSCULAR HEMOGLOBIN 31 PG (25-34)
[2017-08-21 05:49] LABS: ANION GAP 9 MMOL/L (5-14); BLOOD UREA NITROGEN 19 MG/DL (7-18); BUN/CREATININE RATIO 22; CALCIUM 7.7 MG/DL (8.5-10.1); CARBON DIOXIDE 19 MMOL/L (21-32); CHLORIDE 111 MMOL/L (98-107); CREATININE SERUM 0.86 MG/DL (0.60-1.30); GFR ESTIMATED > 60; GLUCOSE 140 MG/DL (70-105); POTASSIUM 4.4 MMOL/L (3.6-5.0); SODIUM 139 MMOL/L (135-145)
[2017-08-21] MEDS: inSUlin (REGULAR) HUMAN 1 UNIT/0.01 ML (CHARGE PER UNIT) SC SCH ×4 (06:02→21:04)
[2017-08-21] MEDS: LEVOTHYROXINE 100 MCG (LEVOTHROID) TAB PO SCH (06:05)
[2017-08-21] MEDS: GLIMEPIRIDE 1 MG (AMARYL) TAB PO SCH (06:05)
[2017-08-21] MEDS: RT-ALBUTEROL SULF 2.5 MG/3 ML PRE-MIX VIAL IH SCH ×4 (06:31→18:49)
[2017-08-21] MEDS: RT-ADVAIR HFA 115/21 MCG PER PUFF IH SCH ×2 (06:33→18:49)
[2017-08-21] MEDS: UMECLIDINIUM BROMIDE (INCRUSE ELLIPTA) 7'S IH SCH (06:33)
[2017-08-21 08:18] VITALS: BP 118/66
[2017-08-21] MEDS: AZITHROMYCIN 250 MG TAB (ZITHROMAX) PO SCH (08:27)
[2017-08-21] MEDS: ASPIRIN E.C. 81 MG (ECOTRIN) TAB PO SCH (08:27)
[2017-08-21 10:34] LABS: BILIRUBIN,URINE NEGATIVE (NEGATIVE); KETONES,URINE NEGATIVE (NEGATIVE); LEUKOCYTE ESTERASE ,URINE NEGATIVE (NEGATIVE); NITRITE,URINE NEGATIVE (NEGATIVE); PH,URINE 6 (5-9); PROTEIN,URINE NEGATIVE (NEGATIVE); UROBILINOGEN,URINE NORMAL (NORMAL)
[2017-08-21 11:03] LABS: HYALINE CASTS, URINE 0-2 /LPF; SQUAMOUS EPITHELIAL CELL,UR 25-50 /HPF; WBC,URINE 0-2 /HPF
--- NOTE | 2017-08-21 11:34 | Physical Therapy Daily Note ---
PT Daily Note-Current Subjective Patient agrees to PT. Patient states he desires to return to home today but has to wait on Dr. Cuellar. Pain Numeric Pain Scale: 0-No Pain Location: No Pain Reported Mental Status Patient Orientation: Normal For Age Attachments: IV Transfers Functional [place] Measure 0=Not Assessed/NA 4=Minimal Assistance 1=Total Assistance 5=Supervision or Setup 2=Maximal Assistance 6=Modified [place] 3=Moderate Assistance 7=Complete IndependenceIRFPAI Quality Coding Scale 6 Independent with activity with or without an assistive device 5 Patient requires set up or clean up by helper. Patient completes activity by themselves 4 Supervision or touching assist (CGA). [place] provide cues , steadying assist 3 The helper provides less than half the effort to complete the activity 2 The helper provides more than half the effort to complete the activity 1 Dependent. The helper does all the effort to complete an activity 7 Patient refused to complete or attempt activity 9 The patient did not perform the activity before the current illness or injury 88 Not attempted due to Medical conditions or safety concerns Transfers (B, C, W/C) (FIM): 6 Scootin Sit to/from Stand: 6 Gait Training Gait (FIM): 6 Distance (FIM): 3=150 ft Distance: 500' Gait Level of Assist: 6 Gait Assistive Device: FWW safe and functional with FWW Assessment Current Status: Excellent Progress Patient tolerated treatment well and is on RA upon arrival. Patient slightly SOA with activity, however, SAO2 maintained >90%. PT Chicken Handler Goals Senior Living Goals PT Senior Living Goals Time Frame: Aug 27, 2017 Transfers (B,C,W/C) (FIM): 6 Gait (FIM): 6 Gait distance (FIM): 3=150 ft Gait Level of Assist: 6 Gait Assistive Device: FWW PT Plan Treatment/Plan Treatment Plan: Continue Plan of Care Treatment Plan: Education, Functional Activity Gopal, Functional Strength, Gait , Safety, Therapeutic Exercise Treatment Duration: Aug 27, 2017 Frequency: 6 times per week Estimated Hrs Per Day: .25 hour per day Patient and/or Family Agrees t: Yes Time/GCodes Time In: 1115 Time Out: 1125 Total Billed Treatment Time: 10 Total Billed Treatment 1 visit FA 10 min GWENDOLYN HOGAN PT Aug 21, 2017 11:34
[2017-08-21 12:36] VITALS: BP 138/64
--- NOTE | 2017-08-21 13:27 | Progress Note-Hospitalist ---
Subjective HPI/CC On Admission Date Seen by Provider: Aug 21, 2017 Time Seen by Provider: 13:00 Mr. Francisco is an 86-year-old white male who noted the onset of a dry cough 5 days ago. He reported no other symptoms denying shortness of breath chills or fever at that time. He felt well enough to visit his in the long-term care facility yesterday and denied increased dyspnea on exertion over baseline. He will from sleep last night with Reiger's and fatigue and mild shortness of breath. He was sent to the hospital where his temperature was over 102 with chest x-ray revealing left lower lobe infiltrate. He was not significantly hypotensive as his baseline blood pressure is in the 100/60 range with a history of ischemic cardiomyopathy. Echo last year revealing ejection fraction of 45 percent without evidence for pulmonary hypertension or significant valvular pathology. He is significant for really meant of community-acquired pneumonia with sepsis not severe. He does have underlying COPD as well and has had several admissions for acute exacerbations including pneumonia in the past. He is up-to-date on pneumococcal vaccination. Subjective/Events-last exam Mr. Jacob reports feeling better with no subsequent Reiger's. His cough has been productive of a small amount of whitish sputum. He denies color and denies hemoptysis. He also denies chest pain or palpitation. Objective Exam Vital Signs Vital Sign - Last 12Hours 08/20/17 08/20/17 08/20/17 03:22 05:50 10:53 Temp 101.5 Pulse 99 Resp 20 B/P (MAP) 163/88 Pulse Ox 98 O2 Delivery Room Air O2 Flow Rate 2.00 FiO2 28 Capillary Refill : Less Than 3 Seconds General Appearance: No Apparent Distress Respiratory: Chest Non Tender, No Accessory Muscle Use, No Respiratory Distress , Other (lateral fine rales egophony not appreciated on the left today. No wheezing appreciated.) Cardiovascular: Regular Rate, Rhythm, No Edema, No Gallop, No JVD, No Murmur, Normal Peripheral Pulses Gastrointestinal: Normal Bowel Sounds, No Organomegaly, No Pulsatile Mass, Non Tender, Soft Results/Procedures Lab Laboratory Tests 08/21/17 05:19 Assessment/Plan Assessment and Plan Assess & Plan/Chief Complaint 1. Presumed left lower lobe community-acquired pneumonia responding to Rocephin and Zithromax if progress continues consider discharge this weekend. Patient was instructed to call my office on Thursday for follow-up appointment within the next week if he is discharged. 2. COPD. 3. History of coronary artery disease with mild chronic systolic dysfunction secondary to this. No evidence for heart failure at this time we will DC IV fluids. DAVID CORDERO MD Aug 21, 2017 13:27
[2017-08-21 16:00] VITALS: BP 134/69
--- NOTE | 2017-08-21 16:26 | Occupational Ther Daily Note ---
OT Current Status-Daily Note Subjective Pt seen in room, up in recliner, agreeable to OT. No pain reported Appearance Alert, cooperative Mental Status/Objective Functional [place] Measure 0=Not Assessed/NA 4=Minimal Assistance 1=Total Assistance 5=Supervision or Setup 2=Maximal Assistance 6=Modified [place] 3=Moderate Assistance 7=Complete [place] ADL-Treatment Pt said that he has been off oxygen since yesterday and has been taking himself to the bathroom today. He was observed on occasion to do pursed lip breathing but did not seam SOB. Pt educ on techniques and principles of energy conservation, with pt participating in discussion. Pt was provided with handout on ways to save his energy. Pt verbalized understanding. Pt anticipates discharge to home tomorrow. DC OT with goals met to his satisfaction. Education OT Patient Education: Energy conservation Teaching Recipient: Patient Teaching Methods: Handout OT Short Term Goals Short Term Goals 1=Demonstrate adherence to instructed precautions during ADL tasks. 2=Patient will verbalize/demonstrate understanding of assistive devices/ modifications for ADL. 3=Patient will improve strength/tolerance for activity to enable patient to perform ADL's. OT Detention Goals Detention Goals Time Frame: Aug 27, 2017 Pt able to tolerate 15 minutes functional activity, pt able to verbalize three ways to conserve energy at home Additional Goals: 2-Verbalize Understanding 1=Demonstrate adherence to instructed precautions during ADL tasks. 2=Patient will verbalize/demonstrate understanding of assistive devices/ modifications for ADL. 3=Patient will improve strength/tolerance for activity to enable patient to perform ADL's. OT Education/Plan Problem List/Assessment Pt would benefit from skilled OT to increase his activity tolerance to allow him to safely return home after hospitalization for pneumonia Discharge Recommendations Plan/Recommendations: Discharge/Goals Met Treatment Plan/Plan of Care Patient would benefit from OT for education, treatment and training to promote independence in ADL's, mobility, safety and/or upper extremity function for ADL' s. Plan of Care: UE Funct Exercise/Act, OTHER (Energy conservation education) Treatment Duration: Aug 27, 2017 Frequency: 5 times per week Estimated Hrs Per Day: .25 hour per day Agreement: Yes Rehab Potential: Good Time/GCodes Start Time: 15:18 Stop Time: 15:27 Total Time Billed (hr/min): 9 Billed Treatment Time visit, ADL 9 minutes TANNER DE LUNA OT Aug 21, 2017 16:26
[2017-08-21 20:10] VITALS: BP 138/68
[2017-08-21] MEDS: SIMvastatin 20 MG (ZOCOR) TAB PO SCH (21:04)
[2017-08-22] VITALS: BP 129/62
[2017-08-22] MEDS: cefTRIAXone 1 GM/NS 50 ML IVPB IV SCH ×2 (03:10)
[2017-08-22 04:00] VITALS: BP 129/61
[2017-08-22] MEDS: LEVOTHYROXINE 100 MCG (LEVOTHROID) TAB PO SCH (05:46)
[2017-08-22] MEDS: GLIMEPIRIDE 1 MG (AMARYL) TAB PO SCH (05:46)
[2017-08-22] MEDS: inSUlin (REGULAR) HUMAN 1 UNIT/0.01 ML (CHARGE PER UNIT) SC SCH ×2 (05:46→12:22)
[2017-08-22 06:25] LABS: BASOPHILS % (AUTO) 0 % (0-10); EOSINOPHILS # (AUTO) 0.6 10^3/uL (0.0-0.3); EOSINOPHILS % (AUTO) 7 % (0-10); LYMPHOCYTES # (AUTO) 0.5 X 10^3 (1.0-4.0); LYMPHOCYTES % (AUTO) 5 % (12-44); MEAN CORPUSCULAR HEMOGLOBIN 32 PG (25-34); MEAN CORPUSCULAR HGB CONC 33 G/DL (32-36); MEAN CORPUSCULAR VOLUME 97 FL (80-99); MEAN PLATELET VOLUME 9.3 FL (7.4-10.4); MONOCYTES % (AUTO) 11 % (0-12); NEUTROPHILS # (AUTO) 7.2 X 10^3 (1.8-7.8); NEUTROPHILS % (AUTO) 77 % (42-75); PLATELET COUNT 199 10^3/uL (130-400); RED BLOOD COUNT 3.56 10^6/uL (4.35-5.85); RED CELL DISTRIBUTION WIDTH 14.2 % (10.0-14.5); WHITE BLOOD COUNT 9.3 10^3/uL (4.3-11.0)
[2017-08-22] MEDS: RT-ADVAIR HFA 115/21 MCG PER PUFF IH SCH (06:36)
[2017-08-22] MEDS: RT-ALBUTEROL SULF 2.5 MG/3 ML PRE-MIX VIAL IH SCH ×2 (06:36→10:47)
[2017-08-22] MEDS: UMECLIDINIUM BROMIDE (INCRUSE ELLIPTA) 7'S IH SCH (06:37)
[2017-08-22 07:46] VITALS: BP 163/78
[2017-08-22] MEDS: AZITHROMYCIN 250 MG TAB (ZITHROMAX) PO SCH (08:44)
[2017-08-22] MEDS: ASPIRIN E.C. 81 MG (ECOTRIN) TAB PO SCH (08:44)
--- NOTE | 2017-08-22 08:58 | Physical Therapy Daily Note ---
PT Daily Note-Current Subjective Agrees. "josseline already walked once today." Thinks he may go home today. Transfers Functional [place] Measure 0=Not Assessed/NA 4=Minimal Assistance 1=Total Assistance 5=Supervision or Setup 2=Maximal Assistance 6=Modified [place] 3=Moderate Assistance 7=Complete IndependenceIRFPAI Quality Coding Scale 6 Independent with activity with or without an assistive device 5 Patient requires set up or clean up by helper. Patient completes activity by themselves 4 Supervision or touching assist (CGA). [place] provide cues , steadying assist 3 The helper provides less than half the effort to complete the activity 2 The helper provides more than half the effort to complete the activity 1 Dependent. The helper does all the effort to complete an activity 7 Patient refused to complete or attempt activity 9 The patient did not perform the activity before the current illness or injury 88 Not attempted due to Medical conditions or safety concerns Treatments Gait x 250 ft with fWW mod indep in the [place]; able to manage transfers and turns in his room without assist. Assessment Current Status: Good Progress Safe with transfers and gait. PT Master Merchandiser Goals [facility] Goals PT Master Merchandiser Goals Time Frame: Aug 27, 2017 Transfers (B,C,W/C) (FIM): 6 (mdt) Gait (FIM): 6 (met) Gait distance (FIM): 3=150 ft Gait Level of Assist: 6 Gait Assistive Device: FWW PT Plan Problem List Problem List: Activity Tolerance, Functional Strength, Safety Treatment/Plan Treatment Plan: Continue Plan of Care Treatment Plan: Education, Functional Activity Gopal, Functional Strength, Gait , Safety, Therapeutic Exercise Treatment Duration: Aug 27, 2017 Frequency: 6 times per week Estimated Hrs Per Day: .25 hour per day Patient and/or Family Agrees t: Yes Safety Risks/Education Patient Education: Gait Training Teaching Recipient: Patient Teaching Methods: Demonstration, Discussion Response to Teaching: Return Demonstration Time/GCodes Time In: 800 Time Out: 817 Total Billed Treatment Time: 17 Total Billed Treatment visit GT 17 RUSTY REVELES PT Aug 22, 2017 08:58
[2017-08-22] MEDS ORDERED: AMOX875T2 PO (09:22)
[2017-08-22] MEDS ORDERED: AZIT250T5 PO (09:22)
--- NOTE | 2017-08-22 09:28 | Discharge Summary-Hospitalist ---
Diagnosis/Chief Complaint Date of Admission Aug 20, 2017 at 05:00 Date of Discharge Discharge Date: Aug 22, 2017 Admission Diagnosis 1. Severe Sepsis due to Left lower lobe pneumonia- CAP 2. History of chronic systolic and diastolic heart failure currently appears to be compensated due to underlying ischemic heart disease. 3. COPD 4. 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 Discharge Diagnosis CAP (1) CAP (community acquired pneumonia) (2) CHF (congestive heart failure) Status: Acute (3) Severe sepsis Status: Acute Discharge Summary Discharge Physical Examination Allergies: Coded Allergies: No Known Drug Allergies (Verified , 09/16/07) Vitals & I&Os Vital Signs Date Time Temp Pulse Resp B/P (MAP) Pulse Ox O2 Delivery O2 Flow Rate FiO2 08/22/17 07:46 97.5 87 20 163/78 99 Room Air 08/21/17 10:34 2.00 08/20/17 10:53 28 Hospital Course Pt is an 86yoCM who presented to the ER with CC of cough, SOB, and fevers/ chills who was found to have a left lower lobe pneumonia and meet severe sepsis criteria. He was admitted for further management and IV abx. He responded well to fluid resuscitation and was titrate off of oxygen on day 2 of admission. He was able to ambulate and shower independently and was discharged home to complete a 5 day course of antibiotics. To follow up with Dr. Cordero next week. Labs (last 24 hrs) Laboratory Tests 08/21/17 10:25: Urine Color YELLOW, Urine Clarity CLEAR, Urine pH 6, Urine Specific [place] 1.010L, Urine Protein NEGATIVE, Urine Glucose (UA) 4+H, Urine Ketones NEGATIVE, Urine Nitrite NEGATIVE, Urine Bilirubin NEGATIVE, Urine Urobilinogen NORMAL, Urine Leukocyte Esterase NEGATIVE, Urine RBC (Auto) NEGATIVE, Urine RBC NONE, Urine WBC 0-2, Urine Squamous Epithelial Cells 25-50H, Urine Renal Epithelial Cells NONE, Urine Crystals NONE, Urine Bacteria NEGATIVE, Urine Casts PRESENT, Urine Hyaline Casts 0-2H, Urine Mucus NEGATIVE, Urine Culture Indicated NO 08/21/17 11:03: Glucometer 231H 08/21/17 16:10: Glucometer 213H 08/21/17 19:02: Glucometer 161H 08/21/17 20:22: Glucometer 183H 08/22/17 05:26: Glucometer 167H 08/22/17 06:15: White Blood Count 9.3, Red Blood Count 3.56L, Hemoglobin 11.3L, Hematocrit 34L, Mean Corpuscular Volume 97, Mean Corpuscular Hemoglobin 32, Mean Corpuscular Hemoglobin Concent 33, Red Cell Distribution Width 14.2, Platelet Count 199, Mean Platelet Volume 9.3, Neutrophils (%) (Auto) 77H, Lymphocytes (%) (Auto) 5L , Monocytes (%) (Auto) 11, Eosinophils (%) (Auto) 7, Basophils (%) (Auto) 0, Neutrophils # (Auto) 7.2, Lymphocytes # (Auto) 0.5L, Monocytes # (Auto) 1.0, Eosinophils # (Auto) 0.6H, Basophils # (Auto) 0.0 Microbiology 08/20/17 Blood Culture - Preliminary, Resulted No growth 08/20/17 Throat Culture - Preliminary, Resulted No Beta Strep isolated Pending Labs Laboratory Tests 08/22/17 05:26: Glucometer 167 08/22/17 06:15: White Blood Count 9.3, Red Blood Count 3.56, Hemoglobin 11.3, Hematocrit 34, Mean Corpuscular Volume 97, Mean Corpuscular Hemoglobin 32, Mean Corpuscular Hemoglobin Concent 33, Red Cell Distribution Width 14.2, Platelet Count 199, Mean Platelet Volume 9.3, Neutrophils (%) (Auto) 77, Lymphocytes (%) (Auto) 5, Monocytes (%) (Auto) 11, Eosinophils (%) (Auto) 7, Basophils (%) (Auto) 0, Neutrophils # (Auto) 7.2, Lymphocytes # (Auto) 0.5, Monocytes # (Auto) 1.0, Eosinophils # (Auto) 0.6, Basophils # (Auto) 0.0 Discharge Home Medications: Active Scripts Active Amoxicillin 875 Mg Tablet 875 Mg PO BID 2 Days Azithromycin 250 Mg Tablet 250 Mg PO DAILY 2 Days Reported Aspirin EC (Aspirin) 81 Mg Tablet.dr 81 Mg PO DAILY Senokot (Sennosides) 8.6 Mg Tablet 2 Tab PO DAILY PRN Omeprazole 20 Mg Capsule.dr 20 Mg PO DAILY Levothyroxine Sodium 100 Mcg Tablet 100 Mcg PO DAILY Glimepiride 1 Mg Tablet 1 Mg PO DAILY Preservision Areds 2 Softgel (Vit C/E/Zn/Coppr/Lutein/Zeaxan) 1 Each Capsule 1 Cap PO BID Potassium Chloride 10 Meq Tablet.er 10 Meq PO DAILY Symbicort 160-4.5 Mcg Inhaler (Budesonide/Formoterol Fumarate) 10.2 Gm Hfa.aer.ad 2 Puff INH BID Magnesium Oxide 400 Mg Tablet 400 Mg PO DAILY Fish Oil 1,000 mg Softgel ([place]-3/Dha/Epa/Fish Oil) 1 Each Capsule 1,000 Mg PO DAILY Furosemide 40 Mg Tablet 40 Mg PO MOTUWETHFRSA DOES NOT TAKE ON SUNDAYS Ventolin Hfa (Albuterol Sulfate) 18 Gm Hfa.aer.ad 2 Puff INH Q4H PRN Vitamin D-3 (Cholecalciferol (Vitamin D3)) 2,000 Unit Tablet 2,000 Unit PO DAILY Metformin HCl 500 Mg Tablet 500 Mg PO BID Systane 0.3-0.4% Eye Drops (Propylene Glycol/Peg 400) 15 Ml Drops 1 Drop OU BID PRN Spiriva (Tiotropium [place]) 1 Inh Aerp 1 Cap INH DAILY Simvastatin 20 Mg Tablet 20 Mg PO HS Irbesartan 300 Mg Tablet 300 Mg PO DAILY Instructions to patient/family Please see electronic discharge instructions given to patient. Clinical Quality Measures DVT/VTE Risk/Contraindication: Risk Factor Score Per Nursin RFS Level Per Nursing on Admit: 3=High Copy Copies To 1: DAVID CORDERO MD, KATELYN M MD Aug 22, 2017 09:28
[2017-08-22] MEDS ORDERED: FUROSEMIDE 40 MG (LASIX) TAB PO SCH (09:30)
[2017-08-22] MEDS ORDERED: KCL 10 MEQ TAB (MICRO K) PO SCH (10:45)
[2017-08-22 12:00] VITALS: BP 154/72
[2017-08-23] MEDS ORDERED: KCL 10 MEQ TAB (MICRO K) PO SCH (09:00)
== END 2017-08-22 13:05 | disposition home or self-care (01) | DRG 871 ==
LOC: EDUNIT# 03:21 → ER 03:22 → 4TH 05:00
PROVIDERS: ADMIT Internal Medicine; ATTEND Internal Medicine
DX: A41.9 Sepsis, unspecified organism (principal); J44.9 Chronic obstructive pulmonary disease, unspecified; J18.9 Pneumonia, unspecified organism; I11.0 Hypertensive heart disease with heart failure; I50.42 Chronic combined systolic (congestive) and diastolic (congestive) heart failure; I25.10 Atherosclerotic heart disease of native coronary artery without angina pectoris; E11.9 Type 2 diabetes mellitus without complications; E78.00 Pure hypercholesterolemia, unspecified; E03.9 Hypothyroidism, unspecified; K59.09 Other constipation; F41.9 Anxiety disorder, unspecified; F32.9 Major depressive disorder, single episode, unspecified; Z95.0 Presence of cardiac pacemaker; Z95.1 Presence of aortocoronary bypass graft; Z87.891 Personal history of nicotine dependence
CPT/HCPCS: 36415; 71010; 74176; 80048; 80053; 81000; 82962; 83605; 83735; 83880; 85007; 85025; 85027; 85610; 85730; 86141; 87040; 87430; 87804; 94640; 94760; 96361; 96365; 96367

== ENCOUNTER 2017-11-11 17:26 | Inpatient (IN) | payer MEDICARE, MEDICAID ==
[~2017-11-11] VITALS: Ht 182.9 cm; Wt 106.9 kg
[2017-11-11] MEDS: NS IV 1000 ML 1,000 ML IV ONE ×2 (10:00→18:00)
[~2017-11-11 17:26] MED LIST changes: +AMOX875T2 PO; +ASPI-983 PO; +AZIT250T12 PO; -METO-272 PO; +METO-370 PO
[2017-11-11] MEDS ORDERED: NS IV PRN (17:45)
--- NOTE | 2017-11-11 17:56 | ED General ---
General Stated Complaint: N/V Source of Information: Patient, EMS Exam Limitations: No Limitations History of Present Illness Time Seen by Provider: 17:27 Initial Comments This 87-year-old gentleman presents to the emergency room with complaints of fever, nausea, vomiting, cough, and mild epigastric discomfort that started this morning. He arrives via EMS. EMS reports temperature 100.2. He feels extremely dry and looks dry on exam. EMS administered Zofran 4 mg IV. Allergies and Home Medications Allergies Coded Allergies: No Known Drug Allergies (Verified , 09/16/07) Home Medications Albuterol Sulfate 18 Gm Hfa.aer.ad, 2 PUFF INH Q4H PRN for SHORTNESS OF BREATH, (Reported) Amoxicillin 875 Mg Tablet, 875 MG PO BID for 2 Days, #4 Prescribed by: PENNY JAIMES on 08/22/17921 Aspirin 81 Mg Tablet.dr, 81 MG PO DAILY, (Reported) Azithromycin 250 Mg Tablet, 250 MG PO DAILY for 2 Days, #2 Prescribed by: PENNY JAIMES on 08/22/1722 Budesonide/Formoterol Fumarate 10.2 Gm Hfa.aer.ad, 2 PUFF INH BID, (Reported) Cholecalciferol (Vitamin D3) 2,000 Unit Tablet, 2,000 UNIT PO DAILY, (Reported) Furosemide 40 Mg Tablet, 40 MG PO MoTuWeThFrSa, (Reported) DOES NOT TAKE ON SUNDAYS Glimepiride 1 Mg Tablet, 1 MG PO DAILY, (Reported) Irbesartan 300 Mg Tablet, 300 MG PO DAILY, (Reported) Levothyroxine Sodium 100 Mcg Tablet, 100 MCG PO DAILY, (Reported) Magnesium Oxide 400 Mg Tablet, 400 MG PO DAILY, (Reported) Metformin HCl 500 Mg Tablet, 500 MG PO BID, (Reported) [place]-3/Dha/Epa/Fish Oil 1 Each Capsule, 1,000 MG PO DAILY, (Reported) Omeprazole 20 Mg Capsule.dr, 20 MG PO DAILY, (Reported) Potassium Chloride 10 Meq Tablet.er, 10 MEQ PO DAILY, (Reported) Propylene Glycol/Peg 400 15 Ml Drops, 1 DROP OU BID PRN for DRY EYES, (Reported) Sennosides 8.6 Mg Tablet, 2 TAB PO DAILY PRN for CONSTIPATION-5TH LINE, ( Reported) Simvastatin 20 Mg Tablet, 20 MG PO HS, (Reported) Tiotropium [place] 1 Inh Aerp, 1 CAP INH DAILY, (Reported) Vit C/E/Zn/Coppr/Lutein/Zeaxan 1 Each Capsule, 1 CAP PO BID, (Reported) Constitutional: see HPI EENTM: see HPI Respiratory: see HPI Cardiovascular: no symptoms reported Gastrointestinal: see HPI Genitourinary: no symptoms reported Musculoskeletal: no symptoms reported Skin: no symptoms reported Psychiatric/Neurological: No Symptoms Reported Hematologic/Lymphatic: No Symptoms Reported Past Sdxkzcb-Njtojk-Nyoqdf Hx Patient Social History Type Used: Cigarettes Former Smoker, Quit: Mar 24, 1992 2nd Hand Smoke Exposure: Yes Recent Hopitalizations: No Immunizations Up To Date Tetanus Booster (TDap): Unknown Date of Pneumonia Vaccine: Oct 30, 2015 Date of Influenza Vaccine: Aug 30, 2015 Seasonal Allergies Seasonal Allergies: No Surgeries History of Surgeries: Yes (NASAL POLYPS) Surgeries: CABG, Open Heart Surgery, Pacemaker Respiratory History of Respiratory Disorde: Yes Respiratory Disorders: COPD Currently Using CPAP: No Currently Using BIPAP: No Cardiovascular History of Cardiac Disorders: Yes Cardiac Disorders: Coronary Artery Disease, Hypertension Neurological History of Neurological Disord: No Reproductive System Hx Reproductive Disorders: No Sexually Transmitted Disease: No Genitourinary History of Genitourinary Disor: No Gastrointestinal History of Gastrointestinal Di: Yes Gastrointestinal Disorders: Chronic Constipation Musculoskeletal History of Musculoskeletal Dis: Yes Musculoskeletal Disorders: Arthritis Endocrine History of Endocrine Disorders: Yes Endocrine Disorders: Hypothyroidsim, Diabetes, Non-Insulin dep HEENT History of HEENT Disorders: No Loss of Vision: Left Hearing Impairment: Hard of Hearing Cancer History of Cancer: Yes Cancer: Prostate Psychosocial History of Psychiatric Problem: Yes Behavioral Health Disorders: Anxiety, Depression Integumentary History of Skin or Integumenta: No Blood Transfusions History of Blood Disorders: No Adverse Reaction to a Blood Tr: No Family Medical History Significant Family History: No Pertinent Family Hx Family Medial History: Patient reports no known family medical history. Physical Exam-Suspected Sepsis Physical Exam Vital Signs Vital Sign - Last 12Hours 11/11/17 18:14 Temp 100.2 Pulse 107 Resp 18 B/P (MAP) 132/62 (85) Pulse Ox 96 O2 Delivery Room Air Capillary Refill : General Appearance: No Apparent Distress, WD/WN HEENT: PERRL/EOMI, Normal ENT Inspection, Other (oropharynx very dry) Neck: Normal Inspection Respiratory: Lungs Clear, Normal Breath Sounds, No Accessory Muscle Use, No Respiratory Distress Cardiovascular: No Edema, No Murmur, Tachycardia Gastrointestinal: Normal Bowel Sounds, Non Tender, Soft Extremity: Normal Capillary Refill, Normal Inspection, No Pedal Edema Skin: normal color, warm/dry, other (skin has a crpe paper appearance suggestive of dehydration) Focused Exam Evaluation Lactate Level Laboratory Tests 11/11/17 17:47: Lactic Acid Level 2.35*H Lactic Acid Level Laboratory Tests Test 11/11/17 17:47 Lactic Acid Level 2.35 MMOL/L (0.50-2.00) *H Progress/Results/Core Measures Suspected Sepsis SIRS Temperature: Pulse: Respiratory Rate: Laboratory Tests 11/11/17 17:47: White Blood Count 9.9 Blood Pressure / Mean: Laboratory Tests 11/11/17 17:47: Lactic Acid Level 2.35*H Laboratory Tests 11/11/17 17:47: Creatinine 1.11, INR Comment 0.9, Platelet Count 209, Total Bilirubin 0.9 Results/Orders Lab Results Laboratory Tests Test 11/11/17 17:47 11/11/17 18:50 Range/Units White Blood Count 9.9 4.3-11.0 10^3/uL Red Blood Count 4.11 L 4.35-5.85 10^6/uL Hemoglobin 12.8 L 13.3-17.7 G/DL Hematocrit 39 L 40-54 % Mean Corpuscular Volume 96 80-99 FL Mean Corpuscular Hemoglobin 31 25-34 PG Mean Corpuscular Hemoglobin Concent 33 32-36 G/DL Red Cell Distribution Width 14.0 10.0-14.5 % Platelet Count 209 130-400 10^3/uL Mean Platelet Volume 9.6 7.4-10.4 FL Neutrophils (%) (Auto) 93 H 42-75 % Lymphocytes (%) (Auto) 2 L 12-44 % Monocytes (%) (Auto) 5 0-12 % Eosinophils (%) (Auto) 1 0-10 % Basophils (%) (Auto) 0 0-10 % Neutrophils # (Auto) 9.2 H 1.8-7.8 X 10^3 Lymphocytes # (Auto) 0.2 L 1.0-4.0 X 10^3 Monocytes # (Auto) 0.4 0.0-1.0 X 10^3 Eosinophils # (Auto) 0.1 0.0-0.3 10^3/uL Basophils # (Auto) 0.0 0.0-0.1 10^3/uL Neutrophils % (Manual) 85 % Lymphocytes % (Manual) 2 % Monocytes % (Manual) 2 % Eosinophils % (Manual) 2 % Basophils % (Manual) 0 % Band Neutrophils 9 % Blood Morphology Comment NORMAL Prothrombin Time 12.7 12.2-14.7 SEC INR Comment 0.9 0.8-1.4 Activated Partial Thromboplast Time 32 24-35 SEC Sodium Level 137 135-145 MMOL/L Potassium Level 4.8 3.6-5.0 MMOL/L Chloride Level 102 98-107 MMOL/L Carbon Dioxide Level 22 21-32 MMOL/L Anion Gap 13 5-14 MMOL/L Blood Urea Nitrogen 28 H 7-18 MG/DL Creatinine 1.11 0.60-1.30 MG/DL Estimat Glomerular Filtration Rate > 60 BUN/Creatinine Ratio 25 Glucose Level 169 H 70-105 MG/DL Lactic Acid Level 2.35 *H 0.50-2.00 MMOL/L Calcium Level 8.8 8.5-10.1 MG/DL Total Bilirubin 0.9 0.1-1.0 MG/DL Aspartate Amino Transf (AST/SGOT) 25 5-34 U/L Alanine Aminotransferase (ALT/SGPT) 23 0-55 U/L Alkaline Phosphatase 67 40-136 U/L Total Protein 7.6 6.4-8.2 GM/DL Albumin 3.6 3.2-4.5 GM/DL Urine Color YELLOW Urine Clarity CLEAR Urine pH 6 5-9 Urine Specific [place] 1.015 L 1.016-1.022 Urine Protein NEGATIVE NEGATIVE Urine Glucose (UA) NEGATIVE NEGATIVE Urine Ketones 1+ H NEGATIVE Urine Nitrite NEGATIVE NEGATIVE Urine Bilirubin NEGATIVE NEGATIVE Urine Urobilinogen NORMAL NORMAL MG/DL Urine Leukocyte Esterase NEGATIVE NEGATIVE Urine RBC (Auto) NEGATIVE NEGATIVE Urine RBC NONE /HPF Urine WBC RARE /HPF Urine Crystals NONE /LPF Urine Bacteria NEGATIVE /HPF Urine Casts NONE /LPF Urine Mucus SMALL H /LPF Urine Culture Indicated NO Micro Results Microbiology 11/11/17 Influenza Types A,B Antigen (BRITTANY) - Final, Complete My Orders Orders - HAMILTON TOTH MD Cbc With Automated Diff (11/11/17 17:40) Comprehensive Metabolic Panel (11/11/17 17:40) Lactic Acid Analyzer (11/11/17 17:40) Blood Culture (11/11/17 17:40) Sputum Culture (11/11/17 17:40) Ua Culture If Indicated (11/11/17 17:40) Protime With Inr (11/11/17 17:40) Partial Thromboplastin Time (11/11/17 17:40) Chest 1 View, Ap/Pa Only (11/11/17 17:40) O2 (11/11/17:40) Saline Lock/Iv-Start (11/11/17 17:40) Saline Lock/Iv-Start (11/11/17 17:40) Ns Iv 1000 Ml (Sodium Chloride 0.9%) (11/11/17 17:45) Vital Signs Adult Sepsis Patie Q1H (11/11/17 17:40) Remove Rings In Anticipation O (11/11/17 17:40) Ns Iv 1000 Ml (Sodium Chloride 0.9%) (11/11/17 17:40) Influenza A And B Antigens (11/11/17 17:42) Manual Differential (11/11/17 17:47) Medications Given in ED Current Medications Medications Dose Ordered Sig/Pat Route Start Time Stop Time Status Last Admin Dose Admin Sodium Chloride 1,000 ml @ 0 mls/hr Q0M ONCE IV 11/11/17 17:40 11/11/17 17:42 DC 11/11/17 18:00 1,000 MLS/HR Vital Signs/I&O Vital Sign - Last 12Hours 11/11/17 18:14 Temp 100.2 Pulse 107 Resp 18 B/P (MAP) 132/62 (85) Pulse Ox 96 O2 Delivery Room Air Capillary Refill : Progress Note #1: Time: 17:55 Progress Note Patient has been seen and examined. 500 mL normal saline is being run as initiated by EMS. A 1 L bolus has been ordered to follow. Septic workup is in progress. Progress Note #2: Progress Note Patient was suspected of having bibasilar pneumonia. He had admission for pneumonia in July as well. Blood cultures and last took acid were collected. He received 1 L normal saline bolus. Because of history of decreased ejection fraction on echocardiogram, hydration will be performed cautiously. Patient was feeling improved after treatment. However, he was still very weak and unsteady on his feet. He had multiple bowel movements in the emergency room that were soft. No further vomiting. Diagnostic Imaging Diagonstic Imaging: Xray Plain Films/CT/US/NM/MRI: chest Comments Chest x-ray viewed by me and report reviewed. See report below: NAME: JUAN LUIS FULTON [facility] REC#: [id number] PT STATUS: ADM IN : 1930 PHYSICIAN: HAMILTON TOTH MD ADMIT DATE: 11/11/17 Signed Date of Exam: 11/11/17 CHEST 1 VIEW, AP/PA ONLY PATIENT HISTORY: Nausea and vomiting. TECHNIQUE: Single frontal view of the chest. COMPARISON: 08/20/2017. FINDINGS: Lung volumes are normal. There are mild opacities in the right lung base and in the left lung base. The cardiac silhouette is upper normal in size. Sternotomy wires and post CABG changes are noted. The left-sided pacemaker leads appear normal. No pneumothorax or large pleural effusion is seen. No acute osseous abnormality is seen. IMPRESSION: 1. Bibasilar airspace opacities, may represent atelectasis or infiltrate. 2. Cardiomegaly. Dictated by: Dictated on workstation # [id number] Dict: 11/11/17 1821 Trans: 11/11/171 Interpreted by: MALIHA ROJAS MD Electronically signed by: MALIHA ROJAS MD 11/11/17 2241 Departure Communication (Admissions) Time/Spoke to Admitting Phy: 19:15 Communication Case discussed with Dr. Michelle who is agreeable to admission for treatment of pneumonia, nausea, vomiting, and fever. She would like a cardiology consultation due to patient's cardiac history. Time/Spoke to Consulting Phy: 19:21 Communication/Consulting Dr. oMrgan was consulted on behalf of Dr. Dixon. Impression Impression: Primary Impression: CAP (community acquired pneumonia) Qualified Codes: J18.9 - Pneumonia, unspecified organism Additional Impressions: Nausea and vomiting Qualified Codes: R11.2 - Nausea with vomiting, unspecified Hypovolemia Weakness Disposition: ADMITTED INPATIENT Condition: Improved Admissions Decision to Admit Reason: Admit from ER (General) Decision to Admit/Date: Nov 11, 2017 Time/Decision to Admit Time: 19:15 Departure-Patient Inst. Referrals: DAVID CORDERO MD (PCP/Family) Primary Care Physician Copy Copies To 1: DAVID CORDERO MD, JOSHUA T MD Nov 11, 2017 17:56
[2017-11-11 18:03] LABS: BASOPHILS % (AUTO) 0 % (0-10); EOSINOPHILS # (AUTO) 0.1 10^3/uL (0.0-0.3); EOSINOPHILS % (AUTO) 1 % (0-10); LYMPHOCYTES # (AUTO) 0.2 X 10^3 (1.0-4.0); LYMPHOCYTES % (AUTO) 2 % (12-44); MEAN CORPUSCULAR HEMOGLOBIN 31 PG (25-34); MEAN CORPUSCULAR HGB CONC 33 G/DL (32-36); MEAN CORPUSCULAR VOLUME 96 FL (80-99); MEAN PLATELET VOLUME 9.6 FL (7.4-10.4); MONOCYTES # (AUTO) 0.4 X 10^3 (0.0-1.0); MONOCYTES % (AUTO) 5 % (0-12); NEUTROPHILS # (AUTO) 9.2 X 10^3 (1.8-7.8); NEUTROPHILS % (AUTO) 93 % (42-75); PLATELET COUNT 209 10^3/uL (130-400); RED BLOOD COUNT 4.11 10^6/uL (4.35-5.85); WHITE BLOOD COUNT 9.9 10^3/uL (4.3-11.0)
[2017-11-11 18:12] LABS: INR 0.9 (0.8-1.4); PROTHROMBIN TIME PATIENT 12.7 SEC (12.2-14.7)
[2017-11-11 18:22] LABS: ALANINE AMINOTRANSFERASE 23 U/L (0-55); ALBUMIN 3.6 GM/DL (3.2-4.5); ANION GAP 13 MMOL/L (5-14); ASPARTATE AMINO TRANSFERASE 25 U/L (5-34); BILIRUBIN,TOTAL 0.9 MG/DL (0.1-1.0); BLOOD UREA NITROGEN 28 MG/DL (7-18); BUN/CREATININE RATIO 25; CALCIUM 8.8 MG/DL (8.5-10.1); CARBON DIOXIDE 22 MMOL/L (21-32); CHLORIDE 102 MMOL/L (98-107); CREATININE SERUM 1.11 MG/DL (0.60-1.30); GFR ESTIMATED > 60; GLUCOSE 169 MG/DL (70-105); POTASSIUM 4.8 MMOL/L (3.6-5.0); SODIUM 137 MMOL/L (135-145); TOTAL PROTEIN 7.6 GM/DL (6.4-8.2)
--- NOTE | 2017-11-11 18:25 | Diagnostic Imaging Report ---
PATIENT HISTORY: Nausea and vomiting. TECHNIQUE: Single frontal view of the chest. COMPARISON: 08/20/2017. FINDINGS: Lung volumes are normal. There are mild opacities in the right lung base and in the left lung base. The cardiac silhouette is upper normal in size. Sternotomy wires and post CABG changes are noted. The left-sided pacemaker leads appear normal. No pneumothorax or large pleural effusion is seen. No acute osseous abnormality is seen. IMPRESSION: 1. Bibasilar airspace opacities, may represent atelectasis or infiltrate. 2. Cardiomegaly. Dictated by: Dictated on workstation # [id number]
[2017-11-11 18:58] LABS: BAND NEUTROPHILS 9 %; BASOPHILS % (MANUAL) 0 %; EOSINOPHILS % (MANUAL) 2 %; LYMPHOCYTES % (MANUAL) 2 %; NEUTROPHILS % (MANUAL) 85 %
[2017-11-11 19:06] LABS: BILIRUBIN,URINE NEGATIVE (NEGATIVE); KETONES,URINE 1+ (NEGATIVE); LEUKOCYTE ESTERASE ,URINE NEGATIVE (NEGATIVE); NITRITE,URINE NEGATIVE (NEGATIVE); PH,URINE 6 (5-9); PROTEIN,URINE NEGATIVE (NEGATIVE); UROBILINOGEN,URINE NORMAL (NORMAL)
[2017-11-11 19:23] LABS: WBC,URINE RARE /HPF
[2017-11-11] MEDS ORDERED: PIPERACILLIN SODIUM/TAZOBACTAM 4.5 GM in NS (IVPB) 100 ML IV ONE (19:45)
[2017-11-11] MEDS ORDERED: NS IV 1000 ML 1,000 ML ONE (20:14)
[2017-11-11 20:50] VITALS: BP 96/50
[2017-11-11] MEDS ORDERED: ONDANSETRON 4 MG/2 ML (SDV) Z0FRAN IV PRN (21:30)
[2017-11-11] MEDS ORDERED: ACETAMINOPHEN 500 MG TAB (TYLENOL) PO PRN (21:30)
[2017-11-11] MEDS ORDERED: CATHETER FLUSH 10 ML SYR IV PRN (21:45)
[2017-11-11] MEDS: CATHETER FLUSH 10 ML SYR IV SCH (22:04)
[2017-11-11] MEDS: NS IV 1000 ML 1,000 ML IV SCH (22:04)
[2017-11-11 22:13] VITALS: BP 112/53
[2017-11-12] VITALS (7 sets, daily range): BP systolic 97–121; BP diastolic 49–63
[2017-11-12] MEDS: PIPERACILLIN/TAZOBACTAM 4.5 GM/NS100 ML IVPB IV SCH ×6 (01:35→18:41)
[2017-11-12] MEDS: NS IV 1000 ML 1,000 ML IV SCH ×3 (04:31→21:17)
[2017-11-12] MEDS: CATHETER FLUSH 10 ML SYR IV SCH ×3 (05:52→21:17)
[2017-11-12 06:48] LABS: BASOPHILS % (AUTO) 0 % (0-10); EOSINOPHILS % (AUTO) 1 % (0-10); LYMPHOCYTES # (AUTO) 0.2 X 10^3 (1.0-4.0); LYMPHOCYTES % (AUTO) 3 % (12-44); MEAN CORPUSCULAR HEMOGLOBIN 32 PG (25-34); MEAN CORPUSCULAR HGB CONC 32 G/DL (32-36); MEAN CORPUSCULAR VOLUME 98 FL (80-99); MEAN PLATELET VOLUME 9.3 FL (7.4-10.4); MONOCYTES # (AUTO) 0.5 X 10^3 (0.0-1.0); MONOCYTES % (AUTO) 7 % (0-12); NEUTROPHILS # (AUTO) 6.4 X 10^3 (1.8-7.8); NEUTROPHILS % (AUTO) 90 % (42-75); PLATELET COUNT 172 10^3/uL (130-400); RED BLOOD COUNT 3.64 10^6/uL (4.35-5.85); RED CELL DISTRIBUTION WIDTH 14.4 % (10.0-14.5); WHITE BLOOD COUNT 7.1 10^3/uL (4.3-11.0)
[2017-11-12 07:15] LABS: ANION GAP 10 MMOL/L (5-14); BLOOD UREA NITROGEN 29 MG/DL (7-18); BUN/CREATININE RATIO 26; CALCIUM 7.6 MG/DL (8.5-10.1); CARBON DIOXIDE 18 MMOL/L (21-32); CHLORIDE 108 MMOL/L (98-107); CREATININE SERUM 1.13 MG/DL (0.60-1.30); GFR ESTIMATED > 60; GLUCOSE 118 MG/DL (70-105); POTASSIUM 3.9 MMOL/L (3.6-5.0); SODIUM 136 MMOL/L (135-145)
--- NOTE | 2017-11-12 08:30 | Diagnostic Imaging Report ---
INDICATION: Cough and hypovolemia. PA and lateral views of the chest are obtained with comparison made study of 11/11/2017. FINDINGS: Overall heart size and pulmonary vascularity are within normal limits. Left anterior chest wall and dual-chamber cardiac pacemaker remains in stable position. There is no evidence of pneumothorax. There is mild basilar atelectasis with mild blunting of left costophrenic sulcus. Overall, there has been no other significant change. IMPRESSION: Probable mild basilar atelectasis and pleural fluid without evidence of acute abnormality or other adverse change. Dictated by: Dictated on workstation # [id number]
--- NOTE | 2017-11-12 09:15 | Consultation-Cardiology ---
HPI-Cardiology Cardiology Consultation: Date of Consultation 11/12/17 Date of Admission Attending Physician José Miguel Cuellar MD Admitting Physician José Miguel Cuellar MD Consulting Physician ARTEMIO PRATT [id number] Hx Patient Social History Alcohol Use: Denies Use Recreational Drug Use: No Smoking Status: Former Smoker Former smoker/When Quit: March 30, 1986 Type Used: Cigarettes 2nd Hand Smoke Exposure: Yes Recent Foreign Travel: No Recent Infectious Disease Expo: No Hospitalization with Isolation: Denies Physical Abuse Screen: No Sexual Abuse: No Immunizations Up To Date Tetanus Booster (TDap): Unknown Date of Pneumonia Vaccine: Oct 30, 2015 Date of Influenza Vaccine: Aug 30, 2017 Past Medical History PMH As described under Assessment. Family Medical History Family Medical History: Does not report fam h/o early CAD or SCD Family History: Patient reports no known family medical history. Allergies and Home Medications Allergies Coded Allergies: No Known Drug Allergies (Verified , 09/16/07) Home Medications Albuterol Sulfate 18 Gm Hfa.aer.ad, 2 PUFF INH Q4H PRN for SHORTNESS OF BREATH, (Reported) Aspirin 81 Mg Tablet.dr, 81 MG PO DAILY, (Reported) Budesonide/Formoterol Fumarate 10.2 Gm Hfa.aer.ad, 2 PUFF INH BID, (Reported) Cholecalciferol (Vitamin D3) 2,000 Unit Tablet, 2,000 UNIT PO DAILY, (Reported) Furosemide 40 Mg Tablet, 40 MG PO MoTuWeThFrSa, (Reported) DOES NOT TAKE ON SUNDAYS Glimepiride 1 Mg Tablet, 1 MG PO DAILY, (Reported) Irbesartan 300 Mg Tablet, 300 MG PO DAILY, (Reported) Levothyroxine Sodium 100 Mcg Tablet, 100 MCG PO DAILY, (Reported) Magnesium Oxide 400 Mg Tablet, 400 MG PO HS, (Reported) Metformin HCl 500 Mg Tablet, 500 MG PO BID, (Reported) [place]-3/Dha/Epa/Fish Oil 1 Each Capsule, 1,000 MG PO DAILY, (Reported) Omeprazole 20 Mg Capsule.dr, 20 MG PO DAILY, (Reported) Potassium Chloride 10 Meq Tablet.er, 10 MEQ PO DAILY, (Reported) Propylene Glycol/Peg 400 15 Ml Drops, 1 DROP OU BID PRN for DRY EYES, (Reported) Sennosides 8.6 Mg Tablet, 2 TAB PO DAILY PRN for CONSTIPATION-5TH LINE, ( Reported) Simvastatin 20 Mg Tablet, 20 MG PO HS, (Reported) Tiotropium [place] 1 Inh Aerp, 1 CAP INH DAILY, (Reported) Vit C/E/Zn/Coppr/Lutein/Zeaxan 1 Each Capsule, 1 CAP PO BID, (Reported) Physical Exam-Cardiology Physical Exam Vital Signs/I&O Vital Sign - Last 12Hours 11/12/17 11/12/17 11/12/17 11/12/17 07:29 11:31 12:50 15:02 Temp 98.2 98.6 Pulse 76 80 Resp 18 18 B/P (MAP) 121/57 (78) 114/62 (79) Pulse Ox 95 95 98 92 O2 Delivery Room Air Room Air Room Air Room Air 11/12/17 15:52 Temp 98.7 Pulse 74 Resp 16 B/P (MAP) 112/63 (79) Pulse Ox 95 O2 Delivery Room Air Intake and Output 11/12/17 00:00 Intake Total 1100 ml Balance 1100 ml Capillary Refill : Less Than 3 Seconds Skin: normal color, warm/dry, other (skin has a crpe paper appearance suggestive of dehydration) Data Review Labs Laboratory Tests 11/11/17 17:47: White Blood Count 9.9, Red Blood Count 4.11L, Hemoglobin 12.8L, Hematocrit 39L, Mean Corpuscular Volume 96, Mean Corpuscular Hemoglobin 31, Mean Corpuscular Hemoglobin Concent 33, Red Cell Distribution Width 14.0, Platelet Count 209, Mean Platelet Volume 9.6, Neutrophils (%) (Auto) 93H, Lymphocytes (%) (Auto) 2L , Monocytes (%) (Auto) 5, Eosinophils (%) (Auto) 1, Basophils (%) (Auto) 0, Neutrophils # (Auto) 9.2H, Lymphocytes # (Auto) 0.2L, Monocytes # (Auto) 0.4, Eosinophils # (Auto) 0.1, Basophils # (Auto) 0.0, Neutrophils % (Manual) 85, Lymphocytes % (Manual) 2, Monocytes % (Manual) 2, Eosinophils % (Manual) 2, Basophils % (Manual) 0, Band Neutrophils 9, Blood Morphology Comment NORMAL, Prothrombin Time 12.7, INR Comment 0.9, Activated Partial Thromboplast Time 32, Sodium Level 137, Potassium Level 4.8, Chloride Level 102, Carbon Dioxide Level 22, Anion Gap 13, Blood Urea Nitrogen 28H, Creatinine 1.11, Estimat Glomerular Filtration Rate > 60, BUN/Creatinine Ratio 25, Glucose Level 169H, Lactic Acid Level 2.35*H, Calcium Level 8.8, Total Bilirubin 0.9, Aspartate Amino Transf ( AST/SGOT) 25, Alanine Aminotransferase (ALT/SGPT) 23, Alkaline Phosphatase 67, Total Protein 7.6, Albumin 3.6 11/11/17 18:50: Urine Color YELLOW, Urine Clarity CLEAR, Urine pH 6, Urine Specific [place] 1.015L, Urine Protein NEGATIVE, Urine Glucose (UA) NEGATIVE, Urine Ketones 1+H, Urine Nitrite NEGATIVE, Urine Bilirubin NEGATIVE, Urine Urobilinogen NORMAL, Urine Leukocyte Esterase NEGATIVE, Urine RBC (Auto) NEGATIVE, Urine RBC NONE, Urine WBC RARE, Urine Crystals NONE, Urine Bacteria NEGATIVE, Urine Casts NONE, Urine Mucus SMALLH, Urine Culture Indicated NO 11/11/17 20:05: Lactic Acid Level 1.92 11/12/17 05:52: White Blood Count 7.1, Red Blood Count 3.64L, Hemoglobin 11.5L, Hematocrit 36L, Mean Corpuscular Volume 98, Mean Corpuscular Hemoglobin 32, Mean Corpuscular Hemoglobin Concent 32, Red Cell Distribution Width 14.4, Platelet Count 172, Mean Platelet Volume 9.3, Neutrophils (%) (Auto) 90H, Lymphocytes (%) (Auto) 3L , Monocytes (%) (Auto) 7, Eosinophils (%) (Auto) 1, Basophils (%) (Auto) 0, Neutrophils # (Auto) 6.4, Lymphocytes # (Auto) 0.2L, Monocytes # (Auto) 0.5, Eosinophils # (Auto) 0.0, Basophils # (Auto) 0.0, Sodium Level 136, Potassium Level 3.9, Chloride Level 108H, Carbon Dioxide Level 18L, Anion Gap 10, Blood Urea Nitrogen 29H, Creatinine 1.13, Estimat Glomerular Filtration Rate > 60, BUN /Creatinine Ratio 26, Glucose Level 118H, Calcium Level 7.6L 11/12/17 06:42: Glucometer 129H 11/12/17 09:54: Glucometer 181H 11/12/17 14:31: Glucometer 138H Microbiology 11/11/17 Blood Culture - Preliminary, Resulted No growth 11/11/17 Influenza Types A,B Antigen (BRITTANY) - Final, Complete A/P-Cardiology Assessment/Admission Diagnosis Mild to moderate exertional dyspnea, which is chronic and unchanged Echocardiogram of Dec 2016 showed mild impairment of global LV systolic function with an LVEF of 45%. Distal septal and apical hypokinesis. Mild mitral annular calcification without evidence of significant vavlular stenosis. Trivial to mild aortic, mitral and tricuspid regurg. No evidence of significant valvular stenosis. 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 The pulse generator was changed on 03/24/17. The device is functioning normally on interrogation of 07/15/17 Chronically somewhat low blood pressure - asymptomatic Hypothyroidism being treated with thyroid replacement therapy. 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 Liu a few years ago. History of prostate enlargement/cancer, being followed by Dr. White. Carotid arterial disease being followed by Dr. Douglas at [place], [place]. Coronary artery disease with bypass surgery in August 2007, consisting of left internal mammary artery graft to left anterior descending, saphenous vein graft to right coronary, saphenous vein graft to distal left anterior descending, saphenous vein graft to circumflex, and sequential radial artery to first and second obtuse marginal branches, by Dr. Ferguson at [facility]. Cardiac cath of November 04, 2015 showed 90% distal LMCA stenosis and 60- 70% prox RCA stenosis; patent DELA CRUZ to LAD; patent SVG to distal LAD; patent SVG to a diag; patent SVG to an OM of LCx; patent SVG to RCA; chronically occluded aortocoronary graft, presumably to other OMs; LVEF 45-50%; mod elevation of LVEDP Generalized fatigue and malaise of undetermined etiology which he is following with Dr. Cuellar. COPD HLD - followed by Dr. Cuellar Clinical Quality Measures DVT/VTE Risk/Contraindication: Risk Factor Score Per Nursin RFS Level Per Nursing on Admit: 4+=Very High ARTEMIO CELESTIN Nov 12, 2017 09:15
--- NOTE | 2017-11-12 09:22 | Consultation-Cardiology ---
HPI-Cardiology Cardiology Consultation: Date of Consultation 11/12/17 Time Seen by Provider: 09:00 Date of Admission Attending Physician José Miguel Cuellar MD Admitting Physician José Miguel Cuellar MD Consulting Physician ADRIAN RAMIREZ MD, MA, FACP, FACC, FSCAI, CCDS Physician requesting consult: Dr Michelle HPI: Chief Complaint: Nausea, vomiting, diarrhea, malaise, fever HPI: 87 yo man with 1-2 days of N/V/D and gen malaise and a feverish feeling, admitted through the ER last night to Dr Michelle with the diagnosis of septicemia. He denies cp or palp or syncope. Has chronic exertional shortness of breath, unchanged. Denies leg swelling. Denies shortness of breath at rest Review of Systems-Cardiology Review of Systems Constitutional: As described under HPI Eyes: No vision change Ears/Nose/Throat: No ear discharge, No nasal drainage, No recent hearing loss Respiratory: As described under HPI Cardiovascular: As described under HPI Gastrointestinal: As described under HPI Genitourinary: No dysuria, No hematuria, No urine frequency changes Skin: No ulcerations Hematologic: No bleeding abnormalities BIY-Uwfssg-Zeifwu Hx Patient Social History Alcohol Use: Denies Use Recreational Drug Use: No Smoking Status: Former Smoker Former smoker/When Quit: March 30, 1986 Type Used: Cigarettes 2nd Hand Smoke Exposure: Yes Recent Foreign Travel: No Recent Infectious Disease Expo: No Hospitalization with Isolation: Denies Physical Abuse Screen: No Sexual Abuse: No Immunizations Up To Date Tetanus Booster (TDap): Unknown Date of Pneumonia Vaccine: Oct 30, 2015 Date of Influenza Vaccine: Aug 30, 2017 Past Medical History PMH As described under Assessment. Family Medical History Family Medical History: Does not report fam h/o early CAD or SCD Family History: Patient reports no known family medical history. Allergies and Home Medications Allergies Coded Allergies: No Known Drug Allergies (Verified , 09/16/07) Home Medications Albuterol Sulfate 18 Gm Hfa.aer.ad, 2 PUFF INH Q4H PRN for SHORTNESS OF BREATH, (Reported) Amoxicillin 875 Mg Tablet, 875 MG PO BID for 2 Days, #4 Prescribed by: PENNY JAIMES on 08/22/17 0922 Aspirin 81 Mg Tablet.dr, 81 MG PO DAILY, (Reported) Azithromycin 250 Mg Tablet, 250 MG PO DAILY for 2 Days, #2 Prescribed by: PENNY JAIMES on 08/22/17 0922 Budesonide/Formoterol Fumarate 10.2 Gm Hfa.aer.ad, 2 PUFF INH BID, (Reported) Cholecalciferol (Vitamin D3) 2,000 Unit Tablet, 2,000 UNIT PO DAILY, (Reported) Furosemide 40 Mg Tablet, 40 MG PO MoTuWeThFrSa, (Reported) DOES NOT TAKE ON SUNDAYS Glimepiride 1 Mg Tablet, 1 MG PO DAILY, (Reported) Irbesartan 300 Mg Tablet, 300 MG PO DAILY, (Reported) Levothyroxine Sodium 100 Mcg Tablet, 100 MCG PO DAILY, (Reported) Magnesium Oxide 400 Mg Tablet, 400 MG PO DAILY, (Reported) Metformin HCl 500 Mg Tablet, 500 MG PO BID, (Reported) [place]-3/Dha/Epa/Fish Oil 1 Each Capsule, 1,000 MG PO DAILY, (Reported) Omeprazole 20 Mg Capsule.dr, 20 MG PO DAILY, (Reported) Potassium Chloride 10 Meq Tablet.er, 10 MEQ PO DAILY, (Reported) Propylene Glycol/Peg 400 15 Ml Drops, 1 DROP OU BID PRN for DRY EYES, (Reported) Sennosides 8.6 Mg Tablet, 2 TAB PO DAILY PRN for CONSTIPATION-5TH LINE, ( Reported) Simvastatin 20 Mg Tablet, 20 MG PO HS, (Reported) Tiotropium [place] 1 Inh Aerp, 1 CAP INH DAILY, (Reported) Vit C/E/Zn/Coppr/Lutein/Zeaxan 1 Each Capsule, 1 CAP PO BID, (Reported) Physical Exam-Cardiology Physical Exam Vital Signs/I&O Vital Sign - Last 12Hours 11/11/17 11/11/17 11/12/17 11/12/17 22:13 22:16 00:00 04:00 Temp 98.8 99.1 Pulse 79 80 Resp 16 18 B/P (MAP) 112/53 (72) 97/49 (65) 103/51 (68) Pulse Ox 94 94 O2 Delivery Room Air Room Air Room Air 11/12/17 07:29 Temp 98.2 Pulse 76 Resp 18 B/P (MAP) 121/57 (78) Pulse Ox 95 O2 Delivery Room Air Intake and Output 11/12/17 00:00 Intake Total 1100 ml Balance 1100 ml Capillary Refill : Less Than 3 Seconds Constitutional: AAO x 3, well-developed HEENT: EOMI, hearing is well preserved, No xanthelasmas are seen Neck: No carotid bruit, carotid pulses are 2 + bilaterally, with good upstrokes Respiratory: No accessory muscle use, lungs clear to percussion, lungs clear to auscultation Cardiovascular: regular rate-rhythm, S1 and S2, systolic murmur (soft FELICE at card base) Gastrointestinal: No tender, soft, distended, No guarding, No rebound, audible bowel sounds Extremities: No clubbing, No cyanosis, No significant edema Neurologic/Psychiatric: grossly intact, power is 5/5 both on sides Skin: normal color, warm/dry, other (skin has a crpe paper appearance suggestive of dehydration) Data Review Labs Laboratory Tests 11/11/17 17:47: White Blood Count 9.9, Red Blood Count 4.11L, Hemoglobin 12.8L, Hematocrit 39L, Mean Corpuscular Volume 96, Mean Corpuscular Hemoglobin 31, Mean Corpuscular Hemoglobin Concent 33, Red Cell Distribution Width 14.0, Platelet Count 209, Mean Platelet Volume 9.6, Neutrophils (%) (Auto) 93H, Lymphocytes (%) (Auto) 2L , Monocytes (%) (Auto) 5, Eosinophils (%) (Auto) 1, Basophils (%) (Auto) 0, Neutrophils # (Auto) 9.2H, Lymphocytes # (Auto) 0.2L, Monocytes # (Auto) 0.4, Eosinophils # (Auto) 0.1, Basophils # (Auto) 0.0, Neutrophils % (Manual) 85, Lymphocytes % (Manual) 2, Monocytes % (Manual) 2, Eosinophils % (Manual) 2, Basophils % (Manual) 0, Band Neutrophils 9, Blood Morphology Comment NORMAL, Prothrombin Time 12.7, INR Comment 0.9, Activated Partial Thromboplast Time 32, Sodium Level 137, Potassium Level 4.8, Chloride Level 102, Carbon Dioxide Level 22, Anion Gap 13, Blood Urea Nitrogen 28H, Creatinine 1.11, Estimat Glomerular Filtration Rate > 60, BUN/Creatinine Ratio 25, Glucose Level 169H, Lactic Acid Level 2.35*H, Calcium Level 8.8, Total Bilirubin 0.9, Aspartate Amino Transf ( AST/SGOT) 25, Alanine Aminotransferase (ALT/SGPT) 23, Alkaline Phosphatase 67, Total Protein 7.6, Albumin 3.6 12/13/17 18:50: Urine Color YELLOW, Urine Clarity CLEAR, Urine pH 6, Urine Specific [place] 1.015L, Urine Protein NEGATIVE, Urine Glucose (UA) NEGATIVE, Urine Ketones 1+H, Urine Nitrite NEGATIVE, Urine Bilirubin NEGATIVE, Urine Urobilinogen NORMAL, Urine Leukocyte Esterase NEGATIVE, Urine RBC (Auto) NEGATIVE, Urine RBC NONE, Urine WBC RARE, Urine Crystals NONE, Urine Bacteria NEGATIVE, Urine Casts NONE, Urine Mucus SMALLH, Urine Culture Indicated NO 11/11/17 20:05: Lactic Acid Level 1.92 11/12/17 05:52: White Blood Count 7.1, Red Blood Count 3.64L, Hemoglobin 11.5L, Hematocrit 36L, Mean Corpuscular Volume 98, Mean Corpuscular Hemoglobin 32, Mean Corpuscular Hemoglobin Concent 32, Red Cell Distribution Width 14.4, Platelet Count 172, Mean Platelet Volume 9.3, Neutrophils (%) (Auto) 90H, Lymphocytes (%) (Auto) 3L , Monocytes (%) (Auto) 7, Eosinophils (%) (Auto) 1, Basophils (%) (Auto) 0, Neutrophils # (Auto) 6.4, Lymphocytes # (Auto) 0.2L, Monocytes # (Auto) 0.5, Eosinophils # (Auto) 0.0, Basophils # (Auto) 0.0, Sodium Level 136, Potassium Level 3.9, Chloride Level 108H, Carbon Dioxide Level 18L, Anion Gap 10, Blood Urea Nitrogen 29H, Creatinine 1.13, Estimat Glomerular Filtration Rate > 60, BUN /Creatinine Ratio 26, Glucose Level 118H, Calcium Level 7.6L 11/12/17 06:42: Glucometer 129H Microbiology 11/11/17 Influenza Types A,B Antigen (BRITTANY) - Final, Complete Laboratory Tests 11/11/17 17:47 11/12/17 05:52 A/P-Cardiology Assessment/Admission Diagnosis Ac gastroenteritis and Septicemia of undetermined etiology Chronic mod exertional shortness of breath, stable Echocardiogram of Dec 2016 showed mild impairment of global LV systolic function with an LVEF of 45%. Distal septal and apical hypokinesis. Mild mitral annular calcification without evidence of significant vavlular stenosis. Trivial to mild aortic, mitral and tricuspid regurg. No evidence of significant valvular stenosis. 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 The pulse generator was changed on 03/24/17. The device is functioning normally on interrogation of 07/15/17 Chronically somewhat low blood pressure - asymptomatic Hypothyroidism being treated with thyroid replacement therapy. 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 Liu a few years ago. History of prostate enlargement/cancer, being followed by Dr. White. Carotid arterial disease being followed by Dr. Douglas at [place], [place]. Coronary artery disease with bypass surgery in August 2007, consisting of left internal mammary artery graft to left anterior descending, saphenous vein graft to right coronary, saphenous vein graft to distal left anterior descending, saphenous vein graft to circumflex, and sequential radial artery to first and second obtuse marginal branches, by Dr. Ferguson at [facility]. Cardiac cath of November 04, 2015 showed 90% distal LMCA stenosis and 60- 70% prox RCA stenosis; patent DELA CRUZ to LAD; patent SVG to distal LAD; patent SVG to a diag; patent SVG to an OM of LCx; patent SVG to RCA; chronically occluded aortocoronary graft, presumably to other OMs; LVEF 45-50%; mod elevation of LVEDP Generalized fatigue and malaise of undetermined etiology which he is following with Dr. Cuellar. COPD HLD - followed by Dr. Cuellar Discussion and Recomendations * Continue aspirin and statin, given his CAD * Monitor labs * Management of septicemia and DM II is with Dr Michelle * I spoke with Mr Jacob, discussed his CV issues and explained our cardiac treatment plan Clinical Quality Measures DVT/VTE Risk/Contraindication: Risk Factor Score Per Nursin RFS Level Per Nursing on Admit: 4+=Very High ADRIAN RAMIREZ MD [facility] CCDS Nov 12, 2017 09:22
[2017-11-12] MEDS ORDERED: ASPIRIN 81 MG CHEW (CHILDREN'S ASA) PO NR (09:30)
[2017-11-12] MEDS ORDERED: SENNOSIDES 8.6 MG (SENOKOT) TAB PO PRN (10:15)
[2017-11-12] MEDS ORDERED: ARTIFICAL TEARS 0.4 ML UNIT DOSE (REFRESH PLUS) OU PRN (10:30)
--- NOTE | 2017-11-12 10:48 | History & Physical-Hospitalist ---
HPI History of Present Illness: HPI/Chief Complaint CC: Weakness and SOB HPI: This is a 87 [address] of [address] Cuellar's that presented to the ER with weakness and SOB; was found to have bilateral pneumonia. Pt placed on appropriate abx, Zosyn, and cardiology was consulted due cardiac hx. Lactic acid was 2.35, now normal. Reviewed cardiology note. Patient Interview: Pt denies seeing Dr. Cuellar yet this morning Pt states he is breathing better today and is breathing better. 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 Pt was informed that I will stop IVF when he is better able to eat and drink. Physical exam stable. Pt denies pain currently, but feels weak Pt was informed that I will be restarting his home meds Pt states he lives at home and gets around okay. Pt confirms having a walker, but denies using it much. Pt denies having home O2 or breathing mask at night Scribed by Kaye Cunningham under direct supervision of Dr. Hailey Jimenez. Source: patient Exam Limitations: no limitations Date Seen 11/12/17 Time Seen by Provider: 10:45 Attending Physician José Miguel Cuellar MD PCP José Miguel Cuellar MD Referring Physician Date of Admission Nov 11, 2017 at 19:36 Home Medications & Allergies Home Medications Reviewed patient Home Medication Reconciliation Form Allergies Allergies Coded Allergies No Known Drug Allergies ([id number]) Past Amstzcs-Zyyeru-Voknac Hx Patient Social History Employed/Student: retired Alcohol Use: Denies Use Recreational Drug Use: No Smoking Status: Former Smoker Former Smoker, Quit: Mar 24, 1992 Type Used: Cigarettes 2nd Hand Smoke Exposure: Yes Physical Abuse Screen: No Sexual Abuse: No Recent Foreign Travel: No Contact w/other who traveled: No Recent Hopitalizations: No Recent Infectious Disease Expo: No Immunizations Up To Date Tetanus Booster (TDap): Unknown Date of Pneumonia Vaccine: Oct 30, 2015 Date of Influenza Vaccine: Aug 30, 2017 Seasonal Allergies Seasonal Allergies: No Surgeries Yes (NASAL POLYPS) CABG, Open Heart Surgery, Pacemaker Respiratory Yes COPD, Pneumonia Currently Using CPAP: No Currently Using BIPAP: No Cardiovascular Yes Coronary Artery Disease, Hypertension Neurological No Reproductive System Hx Reproductive Disorders: No Sexually Transmitted Disease: No HIV/AIDS: No Genitourinary Yes (PROSTATE CA) Prostate Problems Gastrointestinal Yes Chronic Constipation Musculoskeletal Yes Arthritis Endocrine History of Endocrine Disorders: Yes Endocrine Disorders: Hypothyroidsim, Diabetes, Non-Insulin dep Are Your Blood Sugars Over 250: No HEENT History of HEENT Disorders: No Loss of Vision: Left Hearing Impairment: Hard of Hearing Cancer Yes Prostate Did You Recieve Any Treatments: Yes Type of Treatment: Radiation Psychosocial History of Psychiatric Problem: Yes Behavioral Health Disorders: Anxiety, Depression Integumentary History of Skin or Integumenta: No Blood Transfusions History of Blood Disorders: No Adverse Reaction to a Blood Tr: No Family Medical History Significant Family History: No Pertinent Family Hx Family Hx: Patient reports no known family medical history. Review of Systems Constitutional: see HPI, chills, dizziness, fever, malaise EENTM: no symptoms reported Respiratory: cough, short of breath, wheezing Cardiovascular: no symptoms reported Gastrointestinal: no symptoms reported Genitourinary: no symptoms reported Musculoskeletal: no symptoms reported Skin: no symptoms reported Psychiatric/Neurological: No Symptoms Reported All Other Systems Reviewed Negative Unless Noted: Yes Physical Exam Physical Exam Vital Signs Vital Sign - Last 12Hours 11/11/17 18:14 Temp 100.2 Pulse 107 Resp 18 B/P (MAP) 132/62 (85) Pulse Ox 96 O2 Delivery Room Air Capillary Refill : Less Than 3 Seconds General Appearance: No Apparent Distress, WD/WN, Chronically ill, Obese Eyes: Bilateral Eye Normal Inspection, Bilateral Eye PERRL HEENT: PERRL/EOMI, Normal ENT Inspection, Pharynx Normal Neck: Full Range of Motion, Normal Inspection, Non Tender, Supple, Carotid Bruit Respiratory: Chest Non Tender, Lungs Clear, No Accessory Muscle Use, No Respiratory Distress, Crackles, Decreased Breath Sounds Cardiovascular: Regular Rate, Rhythm, No Edema, No Gallop, No JVD, No Murmur, Normal Peripheral Pulses Gastrointestinal: Normal Bowel Sounds, No Organomegaly, No Pulsatile Mass, Non Tender, Soft Back: Normal Inspection, No CVA Tenderness, No Vertebral Tenderness Extremity: Normal Capillary Refill, Normal Inspection, Normal Range of Motion, Non Tender, No Calf Tenderness, No Pedal Edema Neurologic/Psychiatric: Alert, Oriented x3, No Motor/Sensory Deficits, Normal Mood/Affect Skin: Normal Color, Warm/Dry Lymphatic: No Adenopathy Results Results/Procedures Lab Laboratory Tests 11/11/17 17:47 11/12/17 05:52 Assessment/Plan Admission Diagnosis Assessment: Bilateral pneumonia with weakness Cardiomyopathy Hypothyroidism DM GERD Constipation Assessment and Plan Plan: Reconcile home meds PT/OT Breathing treatments Abx Gentle IVF Clinical Quality Measures DVT/VTE Risk/Contraindication: Risk Factor Score Per Nursin RFS Level Per Nursing on Admit: 4+=Very High HAILEY JIMENEZ DO Nov 12, 2017 10:48
[2017-11-12] MEDS: FUROSEMIDE 40 MG (LASIX) TAB PO SCH (10:59)
[2017-11-12] MEDS: RT-ALBUTEROL SULF 2.5 MG/3 ML PRE-MIX VIAL INH SCH ×3 (11:31→18:57)
--- NOTE | 2017-11-12 13:58 | Physical Therapy Evaluation ---
PT Evaluation-General Medical Diagnosis Admission Date Nov 11, 2017 at 19:36 Medical Diagnosis: hypovolemia/CAP/weakness Onset Date: Nov 11, 2017 Therapy Diagnosis Therapy Diagnosis: debility Height/Weight Height (Feet): 6 Height (Inches): 0.00 Weight (Pounds): 235 Weight (Ounces): 11.0 Precautions Precautions/Isolations: Fall Prevention, Standard Precautions Weight Bear Status Right Lower Extremity: Right Weight Bearing/Tolerated Left Lower Extremity: Left Full Weight Bearing Referral Physician: Viviana Reason for Referral: Evaluation/Treatment Medical History Pertinent Medical History: Arthritis, CABG, CAD, COPD, DM, HTN, Hypothroidism, Prostate CA Current History to ED with fever, N&V Reviewed History: Yes Social History Home: Apartment Current Living Status: Alone Entry Into Home: Level Entry Prior/Core FIM Prior Level of Function Functional [place] Measure 0=Not Assessed/NA 4=Minimal Assistance 1=Total Assistance 5=Supervision or Setup 2=Maximal Assistance 6=Modified [place] 3=Moderate Assistance 7=Complete [place] Bed Mobility: 6 Transfers (B,C,W/C) (FIM): 6 Gait: 6 ambulates with cane PLOF PT Evaluation-Current Subjective Patient is very agreeable to participate with PT. No c/o at this time. Pain Numeric Pain Scale: 0-No Pain Location: No Pain Reported Pt/Family Goals return to home Objective Patient Orientation: Normal For Age Problem Solving: Good Attachments: IV ROM/Strength ROM Lower Extremities bilateral LE WNL Strength Lower Extremities right knee flexion/extension 4/5; hip flexion 4/5; DF/PF 4/5 left knee flexion/extension 4/5; hip flexion 4/5; DF/PF 4/5 Integumentary/Posture Integumentary refer to nursing notes Bowel Incontinence: No Bladder Incontinence: No Posture WNL Neuromuscular (Tone, Coordination, Reflexes) grossly intact Sensory Vision: Wears Glasses Hearing: Functional Sensation Right Lower Extremit: Impaired Sensation Left Lower Extremity: Impaired Transfers Functional [place] Measure 0=Not Assessed/NA 4=Minimal Assistance 1=Total Assistance 5=Supervision or Setup 2=Maximal Assistance 6=Modified [place] 3=Moderate Assistance 7=Complete [place] Transfers (B, C, W/C) (FIM): 5 Scootin Rollin Supine to/from Sit: 6 Sit to/from Stand: 5 Gait Mode of Locomotion: Walk Anticipated Mode of Locomotion: Walk Gait (FIM): 5 Distance (FIM): 3=150 ft Distance: 300' Gait Level of Assist: 5 Gait Assistive Device: FWW Comments/Gait Description reciprocal pattern, safe and functional gait sequence Balance Sitting Static: Normal Sitting Dynamic: Normal Standing Static: Normal Standing Dynamic: Normal Assessment/Needs 87 y.o. male, will benefit from short term skilled PT to address functional mobility to improve current LOF and to safely return to home at maximum LOF. Patient does fatigue with minimal activity at this time. 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 Goals Time Frame: Nov 20, 2017 Transfers (B,C,W/C) (FIM): 6 Gait (FIM): 6 Gait distance (FIM): 3=150 ft Distance: 350' Gait Level of Assist: 6 Gait Assistive Device: FWW, Cane Single Point PT Plan Problem List Problem List: Activity Tolerance Treatment/Plan Treatment Plan: Continue Plan of Care Treatment Plan: Education, Functional Activity Gopal, Functional Strength, Gait , Safety, Therapeutic Exercise, Transfers Treatment Duration: Nov 20, 2017 Frequency: 6 times per week Estimated Hrs Per Day: .25 hour per day Patient and/or Family Agrees t: Yes Safety Risks/Education Patient Education: Safety Issues Teaching Recipient: Patient Teaching Methods: Discussion Response to Teaching: Verbalize Understanding Discharge Recommendations Therapy D/C Recommendations: Home Independently Time/GCodes Time In: 1322 Time Out: 1337 Total Billed Treatment Time: 15 Total Billed Treatment 1 visit EVModC 15 min GWENDOLYN HOGAN PT Nov 12, 2017 13:58
--- NOTE | 2017-11-12 15:33 | Occupational Therapy Eval ---
OT Evaluation-General/PLF Medical Diagnosis Admission Date Nov 11, 2017 at 19:36 Medical Diagnosis: hypovolemia/CAP/weakness Onset Date: Nov 11, 2017 Therapy Diagnosis Therapy Diagnosis: Weakness Height/Weight Height (Feet): 6 Height (Inches): 0.00 Weight (Pounds): 235 Weight (Ounces): 11.0 Precautions Precautions/Isolations: Fall Prevention, Standard Precautions Safety Interventions: Reorient-PRN Weight Bear Status Weight Bearing Restriction: Weight Bearing/Tolerated Referral Physician: Viviana Referral Reason: Activity Tolerance, Self Care, Evaluation/Treatment, Strengthening/ROM Medical History Pertinent Medical History: Arthritis, CABG, CAD, COPD, DM, HTN, Hypothroidism, Prostate CA Additional Medical History pacemaker, depression, anxiety Current History Pt. states that he began to vomit and his caregiver had to call an ambulance. Reviewed History: Yes Social History Home: Apartment Current Living Status: Alone Entry Into Home: Level Entry ADL-Prior Level of Function ADL PLOF Comments Pt. lives alone. Spouse in August. Pt. states that he has assistance from [employer], 3 1/2 hours per day, 6 days a week. They clean, cook, and shop for him. He does his own bathing and dressing. Pt. states that he still can drive. DME/Equipment: Bath Chair, Shower DME/Equipment Comments Pt. has a walker and cane, but only uses the cane. Drive Self: Yes OT Current Status Subjective Pt. states that he is feeling a lot better. No pain reported. Appearance Pt. is in bed. Agrees to work with OT. Mental Status/Objective Patient Orientation: Person, Place, Time, Situation Attachments: IV Current Glasses/Contacts: Yes Hearing Aids: No Dentures/Partials: Yes Hand Dominance: Right Upper Extremity ROM WFL Upper Extremity Strength 4/5 bilateral UE strength ADL-Treatment Functional Kings Measure 0=Not Assessed/NA 4=Minimal Assistance 1=Total Assistance 5=Supervision or Setup 2=Maximal Assistance 6=Modified Kings 3=Moderate Assistance 7=Complete IndependenceIRFPAI Quality Coding Scale 6 Independent with activity with or without an assistive device 5 Patient requires set up or clean up by helper. Patient completes activity by themselves 4 Supervision or touching assist (CGA). [place] provide cues , steadying assist 3 The helper provides less than half the effort to complete the activity 2 The helper provides more than half the effort to complete the activity 1 Dependent. The helper does all the effort to complete an activity 7 Patient refused to complete or attempt activity 9 The patient did not perform the activity before the current illness or injury 88 Not attempted due to Medical conditions or safety concerns Lower Body Dressing (FIM): 5 (Pt. states that earlier today, he changed on his own into the sweatpants he is wearing. Pt. was able to doff and don his slipper socks while OT in the room.) Transfers (B, C, W/C) (FIM): 5 (SBA for supine-sit, sit-stand, and sit-supine.) Pt. transfers to side of bed to talk with OT. Pt. has IV going. Declines showering or spongebathing at this time, stating, "I promise I will do it tomorrow, supervisor [employer] honor." Pt. practiced doffing/donning socks, and was able to stand and transfer to reclining chair with SBA. Pt. states that he had a BM yesterday, but due to the "magnitude" of it, he was unable to clean himself. States that he is eating just fine, and that he feels much better than he did. Education OT Patient Education: Correct positioning, Modified ADL techniques, Progress toward Goal/Update tx plan, Purpose of tx/functional activities, Reviewed precautions, Rehab process, Transfer techniques Teaching Recipient: Patient Teaching Methods: Demonstration, Discussion Response to Teaching: Verbalize Understanding, Return Demonstration OT Short Term Goals Short Term Goals 1=Demonstrate adherence to instructed precautions during ADL tasks. 2=Patient will verbalize/demonstrate understanding of assistive devices/ modifications for ADL. 3=Patient will improve strength/tolerance for activity to enable patient to perform ADL's. OT Jail Goals Jail Goals Time Frame: Nov 19, 2017 Eating (FIM): 6 Grooming(FIM): 6 Bathing(FIM): 5 Upper Body Dressing(FIM): 6 Lower Body Dressing(FIM): 5 Toileting(FIM): 6 Transfers (B,C,W/C) (FIM): 6 Toilet/Commode Transfer(FIM): 6 Shower Transfer(FIM): 5 Additional Goals: 1-Demonstrate ADL Tasks, 2-Verbalize Understanding, 3- ImproveStrength/Gopal 1=Demonstrate adherence to instructed precautions during ADL tasks. 2=Patient will verbalize/demonstrate understanding of assistive devices/ modifications for ADL. 3=Patient will improve strength/tolerance for activity to enable patient to perform ADL's. OT Education/Plan Problem List/Assessment Assessment: Decreased Activ Tolerance, Impaired I ADL's, Impaired Self-Care Skills Discharge Recommendations Plan/Recommendations: Continue POC Therapy D/C Recommendations: Home w/ Family Support, Occupational Therapy Home Care, Scheduled Assistance Target Placement Home with continued caregiving support. Treatment Plan/Plan of Care Treatment,Training & Education: Yes Patient would benefit from OT for education, treatment and training to promote independence in ADL's, mobility, safety and/or upper extremity function for ADL' s. Plan of Care: ADL Retraining, Functional Mobility, UE Funct Exercise/Act Treatment Duration: Nov 19, 2017 Frequency: At least 5 of 7 days/Wk (IRF) Estimated Hrs Per Day: .25 hour per day Agreement: Yes Rehab Potential: Good Time/GCodes Start Time: 14:10 Stop Time: 14:30 Total Time Billed (hr/min): 20 Billed Treatment Time 1, CARLY MONTERO OT Nov 12, 2017 15:33
[2017-11-12] MEDS: metFORMIN 500 MG (GLUCOPHAGE) TAB PO SCH (17:47)
[2017-11-12] MEDS: RT-ADVAIR HFA 115/21 MCG PER PUFF IH SCH (18:57)
[2017-11-12] MEDS ORDERED: MAGNESIUM OXIDE (MAG-OX)400 MG TAB PO SCH (21:00)
[2017-11-12] MEDS ORDERED: SIMvastatin 20 MG (ZOCOR) TAB PO SCH ×2 (21:00)
[2017-11-13] MEDS: PIPERACILLIN/TAZOBACTAM 4.5 GM/NS100 ML IVPB IV SCH ×4 (02:07→11:00)
[2017-11-13 05:44] LABS: BASOPHILS % (AUTO) 0 % (0-10); EOSINOPHILS # (AUTO) 0.2 10^3/uL (0.0-0.3); EOSINOPHILS % (AUTO) 5 % (0-10); LYMPHOCYTES # (AUTO) 0.4 X 10^3 (1.0-4.0); LYMPHOCYTES % (AUTO) 7 % (12-44); MEAN CORPUSCULAR HEMOGLOBIN 32 PG (25-34); MEAN CORPUSCULAR HGB CONC 33 G/DL (32-36); MEAN CORPUSCULAR VOLUME 98 FL (80-99); MEAN PLATELET VOLUME 9.1 FL (7.4-10.4); MONOCYTES # (AUTO) 0.6 X 10^3 (0.0-1.0); MONOCYTES % (AUTO) 11 % (0-12); NEUTROPHILS # (AUTO) 4.1 X 10^3 (1.8-7.8); NEUTROPHILS % (AUTO) 77 % (42-75); PLATELET COUNT 151 10^3/uL (130-400); RED BLOOD COUNT 3.32 10^6/uL (4.35-5.85); RED CELL DISTRIBUTION WIDTH 14.4 % (10.0-14.5); WHITE BLOOD COUNT 5.3 10^3/uL (4.3-11.0)
[2017-11-13 06:11] LABS: ANION GAP 11 MMOL/L (5-14); BLOOD UREA NITROGEN 20 MG/DL (7-18); BUN/CREATININE RATIO 19; CALCIUM 7.5 MG/DL (8.5-10.1); CARBON DIOXIDE 17 MMOL/L (21-32); CHLORIDE 111 MMOL/L (98-107); CREATININE SERUM 1.07 MG/DL (0.60-1.30); GFR ESTIMATED > 60; GLUCOSE 128 MG/DL (70-105); MAGNESIUM 1.6 MG/DL (1.8-2.4); POTASSIUM 3.7 MMOL/L (3.6-5.0); SODIUM 139 MMOL/L (135-145)
[2017-11-13] MEDS ORDERED: GLIMEPIRIDE 1 MG (AMARYL) TAB PO SCH (06:30)
[2017-11-13] MEDS ORDERED: LEVOTHYROXINE 100 MCG (LEVOTHROID) TAB PO SCH (06:30)
[2017-11-13] MEDS: CATHETER FLUSH 10 ML SYR IV SCH (06:31)
[2017-11-13] MEDS: metFORMIN 500 MG (GLUCOPHAGE) TAB PO SCH (06:31)
[2017-11-13] MEDS: NS IV 1000 ML 1,000 ML IV SCH (06:32)
[2017-11-13] MEDS ORDERED: PANTOPRAZOLE 20 MG TABLET (PROTONIX) PO SCH (07:00)
[2017-11-13 08:00] VITALS: BP 130/62
[2017-11-13] MEDS ORDERED: UMECLIDINIUM BROMIDE (INCRUSE ELLIPTA) 7'S IH SCH (08:00)
[2017-11-13] MEDS: RT-ALBUTEROL SULF 2.5 MG/3 ML PRE-MIX VIAL INH SCH ×2 (08:13→09:03)
[2017-11-13] MEDS ORDERED: MULTIVIT W/MINERALS TAB (THERAGRAN M) PO SCH (09:00)
[2017-11-13] MEDS ORDERED: OMEGA 3 (FISH OIL) 1000 MG CAP PO SCH (09:00)
[2017-11-13] MEDS ORDERED: KCL 10 MEQ TAB (MICRO K) PO SCH (09:00)
[2017-11-13] MEDS ORDERED: VITAMIN D3 1,000 UNITS (CHOLECALCIFEROL) TABLET PO SCH (09:00)
[2017-11-13] MEDS ORDERED: ASPIRIN 81 MG CHEW (CHILDREN'S ASA) PO SCH (09:00)
[2017-11-13] MEDS ORDERED: ASPIRIN E.C. 81 MG (ECOTRIN) TAB PO SCH (09:00)
[2017-11-13] MEDS ORDERED: IRBESARTAN 150 MG (AVAPRO) TAB PO SCH (09:00)
[2017-11-13] MEDS: RT-ADVAIR HFA 115/21 MCG PER PUFF IH SCH (09:03)
--- NOTE | 2017-11-13 09:30 | Physical Therapy Daily Note ---
PT Daily Note-Current Subjective Patient is in good spirits on this date and agrees to PT. Pain Numeric Pain Scale: 0-No Pain Location: No Pain Reported Mental Status Patient Orientation: Normal For Age Transfers Functional Martha Measure 0=Not Assessed/NA 4=Minimal Assistance 1=Total Assistance 5=Supervision or Setup 2=Maximal Assistance 6=Modified [place] 3=Moderate Assistance 7=Complete IndependenceIRFPAI Quality Coding Scale 6 Independent with activity with or without an assistive device 5 Patient requires set up or clean up by helper. Patient completes activity by themselves 4 Supervision or touching assist (CGA). [place] provide cues , steadying assist 3 The helper provides less than half the effort to complete the activity 2 The helper provides more than half the effort to complete the activity 1 Dependent. The helper does all the effort to complete an activity 7 Patient refused to complete or attempt activity 9 The patient did not perform the activity before the current illness or injury 88 Not attempted due to Medical conditions or safety concerns Transfers (B, C, W/C) (FIM): 6 Scootin Rollin Supine to/from Sit: 6 Sit to/from Stand: 6 Weight Bearing Right Lower Extremity: Right Weight Bearing/Tolerated Left Lower Extremity: Left Full Weight Bearing Gait Training Gait (FIM): 6 Distance (FIM): 3=150 ft Distance: 300' x 2 Gait Level of Assist: 6 Gait Assistive Device: FWW safe and functional with FWW; patient has cane and FWW for home use and this PT instructed him to use FWW PRN if he feels slightly unsteady. Patient voiced understanding. Assessment Patient instructed to be up ad jorge in hallway with FWW PRN. RN notified. Patient progressing with POC. PT Skilled Nursing Goals Skilled Nursing Goals PT Skilled Nursing Goals Time Frame: Nov 20, 2017 Transfers (B,C,W/C) (FIM): 6 Gait (FIM): 6 Gait distance (FIM): 3=150 ft Distance: 350' Gait Level of Assist: 6 Gait Assistive Device: FWW, Cane Single Point PT Plan Treatment/Plan Treatment Plan: Continue Plan of Care Treatment Plan: Education, Functional Activity Gopal, Functional Strength, Gait , Safety, Therapeutic Exercise, Transfers Treatment Duration: Nov 20, 2017 Frequency: 6 times per week Estimated Hrs Per Day: .25 hour per day Patient and/or Family Agrees t: Yes Safety Risks/Education Patient Education: Gait Training, Disease Process Teaching Recipient: Patient Teaching Methods: Discussion Response to Teaching: Verbalize Understanding Discharge Recommendations Therapy D/C Recommendations: Home Independently Time/GCodes Time In: 845 Time Out: 900 Total Billed Treatment Time: 15 Total Billed Treatment 1 visit FA 15 min G Codes Necessary: GWENDOLYN Ernandez PT Nov 13, 2017 09:29
[2017-11-13] MEDS: FUROSEMIDE 40 MG (LASIX) TAB PO SCH (09:31)
--- NOTE | 2017-11-13 09:39 | Progress Note-Cardiology ---
Cardiology SOAP Progress Note Subjective: Feels better today. No N/V/D. Denies cp or palp or syncope or shortness of breath Objective: I&O/Vital Signs Vital Sign - Last 12Hours 11/12/17 11/13/17 11/13/17 23:45 08:00 09:03 Temp 98.6 99.1 Pulse 79 69 Resp 20 20 B/P (MAP) 109/51 (70) 130/62 (84) Pulse Ox 95 97 96 O2 Delivery Room Air Room Air Room Air Intake and Output 11/13/17 00:00 Intake Total 3422 ml Output Total 475 ml Balance 2947 ml Weight (Pounds): 235 Weight (Ounces): 11.0 Weight (Calculated Kilograms): 106.263311 Constitutional: AAO x 3, well-developed Respiratory: No accessory muscle use, lungs clear to percussion, lungs clear to auscultation Cardiovascular: regular rate-rhythm, S1 and S2, systolic murmur (soft FELICE at card base) Gastrointestional: No tender, soft, distended, No guarding, No rebound, audible bowel sounds Extremities: No clubbing, No cyanosis, No significant edema Neurologic/Psychiatric: grossly intact, power is 5/5 both on sides Skin: normal color, warm/dry, other (skin has a crpe paper appearance suggestive of dehydration) Results/Procedures: Labs Laboratory Tests 11/12/17 09:54: Glucometer 181H 11/12/17 14:31: Glucometer 138H 11/12/17 19:15: Glucometer 193H 11/13/17 05:20: White Blood Count 5.3, Red Blood Count 3.32L, Hemoglobin 10.6L, Hematocrit 33L, Mean Corpuscular Volume 98, Mean Corpuscular Hemoglobin 32, Mean Corpuscular Hemoglobin Concent 33, Red Cell Distribution Width 14.4, Platelet Count 151, Mean Platelet Volume 9.1, Neutrophils (%) (Auto) 77H, Lymphocytes (%) (Auto) 7L , Monocytes (%) (Auto) 11, Eosinophils (%) (Auto) 5, Basophils (%) (Auto) 0, Neutrophils # (Auto) 4.1, Lymphocytes # (Auto) 0.4L, Monocytes # (Auto) 0.6, Eosinophils # (Auto) 0.2, Basophils # (Auto) 0.0, Sodium Level 139, Potassium Level 3.7, Chloride Level 111H, Carbon Dioxide Level 17L, Anion Gap 11, Blood Urea Nitrogen 20H, Creatinine 1.07, Estimat Glomerular Filtration Rate > 60, BUN /Creatinine Ratio 19, Glucose Level 128H, Calcium Level 7.5L, Magnesium Level 1.6L, Thyroid Stimulating Hormone (TSH) 1.80 Microbiology 11/11/17 Blood Culture - Preliminary, Resulted No growth 11/11/17 Influenza Types A,B Antigen (BRITTANY) - Final, Complete Laboratory Tests 11/11/17 17:47 11/12/17 05:52 11/13/17 05:20 A/P: Assessment: Ac gastroenteritis and Septicemia of undetermined etiology Chronic mod exertional shortness of breath, stable Echocardiogram of Dec 2016 showed mild impairment of global LV systolic function with an LVEF of 45%. Distal septal and apical hypokinesis. Mild mitral annular calcification without evidence of significant vavlular stenosis. Trivial to mild aortic, mitral and tricuspid regurg. No evidence of significant valvular stenosis. 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 The pulse generator was changed on 03/24/17. The device is functioning normally on interrogation of 07/15/17 Chronically somewhat low blood pressure - asymptomatic Hypothyroidism being treated with thyroid replacement therapy. 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 Liu a few years ago. History of prostate enlargement/cancer, being followed by Dr. White. Carotid arterial disease being followed by Dr. Douglas at [place], [place]. Coronary artery disease with bypass surgery in August 2007, consisting of left internal mammary artery graft to left anterior descending, saphenous vein graft to right coronary, saphenous vein graft to distal left anterior descending, saphenous vein graft to circumflex, and sequential radial artery to first and second obtuse marginal branches, by Dr. Ferguson at [facility]. Cardiac cath of November 04, 2015 showed 90% distal LMCA stenosis and 60- 70% prox RCA stenosis; patent DELA CRUZ to LAD; patent SVG to distal LAD; patent SVG to a diag; patent SVG to an OM of LCx; patent SVG to RCA; chronically occluded aortocoronary graft, presumably to other OMs; LVEF 45-50%; mod elevation of LVEDP Generalized fatigue and malaise of undetermined etiology which he is following with Dr. Cuellar. COPD HLD - followed by Dr. Cuellar Plan: * Continue previous cardiac regimen * Monitor labs * Management of septicemia and DM II is with Dr Michelle * Ok to discharge from cardiac standpoint when otherwise stable * Dr Morgan covering Card Svce over the weekend ADRIAN RAMIREZ MD FACP FAC CCDS Nov 13, 2017 09:39
--- NOTE | 2017-11-13 11:50 | Discharge Summary-Hospitalist ---
Diagnosis/Chief Complaint Date of Admission Nov 11, 2017 at 19:36 Date of Discharge Discharge Date: Nov 13, 2017 Admission Diagnosis Assessment: Bilateral pneumonia with weakness Cardiomyopathy Hypothyroidism DM GERD Constipation Discharge Diagnosis 1. Viral gastroenteritis with secondary sepsis not severe. after further investigation no evidence for pneumonia. 2. Dehydration secondary to number 1 3. History of cholelithiasis. 4. 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 Type II diabetes mellitus. Discharge Summary Discharge Physical Examination Allergies: Coded Allergies: No Known Drug Allergies (Verified , 09/16/07) Vitals & I&Os Vital Signs Date Time Temp Pulse Resp B/P (MAP) Pulse Ox O2 Delivery O2 Flow Rate FiO2 11/13/17 09:03 96 Room Air 11/13/17 08:00 99.1 69 20 130/62 (84) Hospital Course Mr. Francisco is a frail elderly white male with multiple medical comorbidities listed in his discharge diagnosis list who developed the onset of nausea followed by vomiting. He denied coffee-ground emesis and denied melena or bright red blood per rectum. He reported feeling increasingly weak with dyspnea on exertion causing her to present to the emergency room. He denied cough or shortness of breath at rest and also denied chills or fever. The emergency room physician felt that he may have by basilar infiltrates although it had more the appearance of atelectasis after reading by the radiologist. I tend to concur with this as the patient's chest was clear and he had no pulmonary symptoms upon my evaluation today. He stated that with fluids he was feeling better he was tolerating solids and ambulating with his walker independently wishing to be discharged. He had no evidence for leukocytosis although he did have a left shift on admission which resolved. His discharge hemoglobin was the upper 10 range with normal MCV compatible with anemia of chronic disease. In review of previous x-ray results he was noted on CT scanning of the abdomen and pelvis in July of this year to have some calcified gallstones in the neck of a nondistended gallbladder. His gallbladder wall was not thickened and there was no evidence or pericholecystic fluid to suggest acute cholecystitis. Considering this however cannot rule out the possibility of acute cholecystitis. Today however he has no abdominal tenderness and is tolerating solids without difficulty. I discussed and made recommendations for low-fat heart healthy diet which would benefit his coronary artery disease and diabetes as well. He was discharged otherwise on his home medications with plan to see him in the office in 1-2 weeks for early follow-up. Labs (last 24 hrs) Laboratory Tests 11/12/17 14:31: Glucometer 138H 11/12/17 19:15: Glucometer 193H 11/13/17 05:20: White Blood Count 5.3, Red Blood Count 3.32L, Hemoglobin 10.6L, Hematocrit 33L, Mean Corpuscular Volume 98, Mean Corpuscular Hemoglobin 32, Mean Corpuscular Hemoglobin Concent 33, Red Cell Distribution Width 14.4, Platelet Count 151, Mean Platelet Volume 9.1, Neutrophils (%) (Auto) 77H, Lymphocytes (%) (Auto) 7L , Monocytes (%) (Auto) 11, Eosinophils (%) (Auto) 5, Basophils (%) (Auto) 0, Neutrophils # (Auto) 4.1, Lymphocytes # (Auto) 0.4L, Monocytes # (Auto) 0.6, Eosinophils # (Auto) 0.2, Basophils # (Auto) 0.0, Sodium Level 139, Potassium Level 3.7, Chloride Level 111H, Carbon Dioxide Level 17L, Anion Gap 11, Blood Urea Nitrogen 20H, Creatinine 1.07, Estimat Glomerular Filtration Rate > 60, BUN /Creatinine Ratio 19, Glucose Level 128H, Calcium Level 7.5L, Magnesium Level 1.6L, Thyroid Stimulating Hormone (TSH) 1.80 11/13/17 09:38: Glucometer 169H Microbiology 11/11/17 Blood Culture - Preliminary, Resulted No growth 11/11/17 Influenza Types A,B Antigen (BRITTANY) - Final, Complete Pending Labs Laboratory Tests 11/13/17 05:20: White Blood Count 5.3, Red Blood Count 3.32, Hemoglobin 10.6, Hematocrit 33, Mean Corpuscular Volume 98, Mean Corpuscular Hemoglobin 32, Mean Corpuscular Hemoglobin Concent 33, Red Cell Distribution Width 14.4, Platelet Count 151, Mean Platelet Volume 9.1, Neutrophils (%) (Auto) 77, Lymphocytes (%) (Auto) 7, Monocytes (%) (Auto) 11, Eosinophils (%) (Auto) 5, Basophils (%) (Auto) 0, Neutrophils # (Auto) 4.1, Lymphocytes # (Auto) 0.4, Monocytes # (Auto) 0.6, Eosinophils # (Auto) 0.2, Basophils # (Auto) 0.0, Sodium Level 139, Potassium Level 3.7, Chloride Level 111, Carbon Dioxide Level 17, Anion Gap 11, Blood Urea Nitrogen 20, Creatinine 1.07, Estimat Glomerular Filtration Rate > 60, BUN/ Creatinine Ratio 19, Glucose Level 128, Calcium Level 7.5, Magnesium Level 1.6, Thyroid Stimulating Hormone (TSH) 1.80 11/13/17 09:38: Glucometer 169 Discharge Home Medications: Active Scripts Active Reported Aspirin EC (Aspirin) 81 Mg Tablet.dr 81 Mg PO DAILY Senokot (Sennosides) 8.6 Mg Tablet 2 Tab PO DAILY PRN Omeprazole 20 Mg Capsule.dr 20 Mg PO DAILY Levothyroxine Sodium 100 Mcg Tablet 100 Mcg PO DAILY Glimepiride 1 Mg Tablet 1 Mg PO DAILY Preservision Areds 2 Softgel (Vit C/E/Zn/Coppr/Lutein/Zeaxan) 1 Each Capsule 1 Cap PO BID Potassium Chloride 10 Meq Tablet.er 10 Meq PO DAILY Symbicort 160-4.5 Mcg Inhaler (Budesonide/Formoterol Fumarate) 10.2 Gm Hfa.aer.ad 2 Puff INH BID Magnesium Oxide 400 Mg Tablet 400 Mg PO HS Fish Oil 1,000 mg Softgel (Dozier-3/Dha/Epa/Fish Oil) 1 Each Capsule 1,000 Mg PO DAILY Furosemide 40 Mg Tablet 40 Mg PO MOTUWETHFRSA DOES NOT TAKE ON SUNDAYS Ventolin Hfa (Albuterol Sulfate) 18 Gm Hfa.aer.ad 2 Puff INH Q4H PRN Vitamin D-3 (Cholecalciferol (Vitamin D3)) 2,000 Unit Tablet 2,000 Unit PO DAILY Metformin HCl 500 Mg Tablet 500 Mg PO BID Systane 0.3-0.4% Eye Drops (Propylene Glycol/Peg 400) 15 Ml Drops 1 Drop OU BID PRN Spiriva (Tiotropium Pearson) 1 Inh Aerp 1 Cap INH DAILY Simvastatin 20 Mg Tablet 20 Mg PO HS Irbesartan 300 Mg Tablet 300 Mg PO DAILY Instructions to patient/family Please see electronic discharge instructions given to patient. Clinical Quality Measures DVT/VTE Risk/Contraindication: Risk Factor Score Per Nursin RFS Level Per Nursing on Admit: 4+=Very High Copy Copies To 1: ADRIAN RAMIREZ MD FACP FACC CCDS Copies To 2: DAVID CORDERO MD, MARK D MD Nov 13, 2017 11:50
[2017-11-13 12:56] VITALS: BP 130/62
== END 2017-11-13 12:56 | disposition home or self-care (01) | DRG 871 ==
LOC: EDUNIT# 17:26 → ER 17:27 → UNDOADMIN 19:36 → 4TH 19:36
PROVIDERS: ADMIT Internal Medicine; ATTEND Internal Medicine
DX: A41.9 Sepsis, unspecified organism (principal); I50.41 Acute combined systolic (congestive) and diastolic (congestive) heart failure; J44.9 Chronic obstructive pulmonary disease, unspecified; I42.9 Cardiomyopathy, unspecified; K52.9 Noninfective gastroenteritis and colitis, unspecified; E86.1 Hypovolemia; E86.0 Dehydration; E03.9 Hypothyroidism, unspecified; K21.9 Gastro-esophageal reflux disease without esophagitis; K80.20 Calculus of gallbladder without cholecystitis without obstruction; I08.3 Combined rheumatic disorders of mitral, aortic and tricuspid valves; E78.5 Hyperlipidemia, unspecified; F41.9 Anxiety disorder, unspecified; E11.9 Type 2 diabetes mellitus without complications; F32.9 Major depressive disorder, single episode, unspecified; I25.10 Atherosclerotic heart disease of native coronary artery without angina pectoris; I11.0 Hypertensive heart disease with heart failure; K59.09 Other constipation; M19.91 Primary osteoarthritis, unspecified site; R26.81 Unsteadiness on feet; R53.1 Weakness; Z95.1 Presence of aortocoronary bypass graft; Z95.0 Presence of cardiac pacemaker; Z87.891 Personal history of nicotine dependence; Z85.46 Personal history of malignant neoplasm of prostate; Z92.3 Personal history of irradiation; Z79.84 Long term (current) use of oral hypoglycemic drugs; Z77.22 Contact with and (suspected) exposure to environmental tobacco smoke (acute) (chronic); Z87.01 Personal history of pneumonia (recurrent)
CPT/HCPCS: 36415; 71010; 71020; 80048; 80053; 81000; 82962; 83605; 83735; 84443; 85007; 85025; 85027; 85610; 85730; 87040; 87804; 93005; 94640; 94760; 96361; 96374

== ENCOUNTER 2019-03-05 08:05 | Inpatient (IN) | payer MEDICARE, MEDICAID | END 2019-03-09 12:55 | disposition home health service (06) | LOC: ER 08:05 → 4TH 09:50 | DX: J18.1 Lobar pneumonia, unspecified organism (principal); J90 Pleural effusion, not elsewhere classified; J44.9 Chronic obstructive pulmonary disease, unspecified; E11.9 Type 2 diabetes mellitus without complications; I25.10 Atherosclerotic heart disease of native coronary artery without angina pectoris; I25.2 Old myocardial infarction; I10 Essential (primary) hypertension; I48.2 Chronic atrial fibrillation; E78.2 Mixed hyperlipidemia; E03.9 Hypothyroidism, unspecified; K21.9 Gastro-esophageal reflux disease without esophagitis; K59.09 Other constipation; F41.9 Anxiety disorder, unspecified; F32.9 Major depressive disorder, single episode, unspecified; Z60.2 Problems related to living alone; Z87.891 Personal history of nicotine dependence; Z95.1 Presence of aortocoronary bypass graft; Z95.5 Presence of coronary angioplasty implant and graft; Z79.01 Long term (current) use of anticoagulants; Z95.0 Presence of cardiac pacemaker; Z92.3 Personal history of irradiation; Z85.46 Personal history of malignant neoplasm of prostate ==

== ENCOUNTER 2019-05-11 10:05 | Inpatient (IN) | payer MEDICARE, MEDICAID ==
[~2019-05-11] VITALS: Ht 180.3 cm; Wt 113.0 kg
[~2019-05-11 10:05] MED LIST changes: +ALBU18HF2 INH; +APIX5TAB PO; +CYAN25003 SL; -DILT120C63 PO; +DILT120C94 PO; +DILT240C PO; +GLIM2TAB PO; +IRBE150T26 PO; +MAGN500C15 PO; +METF-397 PO; -METF500T4 PO; +THYR60TA PO; +TIZA2TAB3 PO
[2019-05-11] MEDS ORDERED: NS IV 500 ML 500 ML IV ONE (10:11)
--- NOTE | 2019-05-11 10:23 | NUR ---
BLOOD CULTURE UNABLE TO BE DRAWN FROM IV. LAB HERE WILL DRAW BOTH SET'S
[2019-05-11 10:37] LABS: BASOPHILS % (AUTO) 0 % (0-10); EOSINOPHILS % (AUTO) 0 % (0-10); HEMATOCRIT 38 % (40-54); HEMOGLOBIN 12.4 G/DL (13.3-17.7); LYMPHOCYTES # (AUTO) 0.2 X 10^3 (1.0-4.0); LYMPHOCYTES % (AUTO) 1 % (12-44); MEAN CORPUSCULAR HEMOGLOBIN 31 PG (25-34); MEAN CORPUSCULAR HGB CONC 33 G/DL (32-36); MEAN CORPUSCULAR VOLUME 94 FL (80-99); MEAN PLATELET VOLUME 9.1 FL (7.4-10.4); MONOCYTES % (AUTO) 7 % (0-12); NEUTROPHILS # (AUTO) 13.2 X 10^3 (1.8-7.8); NEUTROPHILS % (AUTO) 91 % (42-75); PLATELET COUNT 266 10^3/uL (130-400); WHITE BLOOD COUNT 14.4 10^3/uL (4.3-11.0)
--- NOTE | 2019-05-11 10:38 | ED Respiratory ---
General Chief Complaint: Respiratory Problems Stated Complaint: SOA Source: patient Exam Limitations: no limitations History of Present Illness Date Seen by Provider: May 11, 2019 Time Seen by Provider: 10:07 Initial Comments Here with report of shortness of breath that started about 5 AM and worsened. He called EMS and they noted that his oxygen saturation was 90% on room air and she 2 L via nasal cannula. Noted to have tachycardia in the rate of 110-120 and has history of A. fib. Does have pacemaker. Reports that he took all of his meds this morning and suffers breathing treatment. Denies nausea or vomiting. States she's had chills today. Feels a little better after the oxygen by EMS. EMS unable to get IV due to difficult stick. Timing/Duration: this morning Severity: moderate Prior Episodes/Possible Cause: occasional episodes Modifying Factors: Improves With Oxygen, Improves With Rest Associated Symptoms: No chest pain/soreness, No cough; fever/chills; No nasal congestion; shortness of breath; No wheezing Allergies and Home Medications Allergies Coded Allergies: No Known Drug Allergies (Verified , 07/15/18) Home Medications Albuterol Sulfate 18 Gm Hfa.aer.ad, 2 PUFF INH Q4H PRN for SHORTNESS OF BREATH, (Reported) Apixaban 5 Mg Tablet, 5 MG PO BID, (Reported) Aspirin 81 Mg Tablet.dr, 81 MG PO DAILY, (Reported) Cholecalciferol (Vitamin D3) 2,000 Unit Tablet, 2,000 UNIT PO DAILY, (Reported) Cyanocobalamin (Vitamin B-12) 2,500 Mcg Tab.subl, 2,500 MCG SL DAILY, (Reported) Diltiazem HCl 240 Mg Cap.er.24h, 240 MG PO DAILY, (Reported) Fluticasone/Umeclidin/Vilanter 1 Each Blst.w.dev, 1 PUFF INH DAILY, (Reported) Furosemide 40 Mg Tablet, 40 MG PO MoTuWeThFrSa, (Reported) DOES NOT TAKE ON SUNDAYS Glimepiride 4 Mg Tablet, 4 MG PO DAILY, (Reported) Irbesartan 150 Mg Tablet, 150 MG PO DAILY, (Reported) Levothyroxine Sodium 100 Mcg Tablet, 100 MCG PO DAILY, (Reported) Magnesium Oxide 500 Mg Capsule, 500 MG PO DAILY, (Reported) Metformin HCl 500 Mg Tablet, 1,000 MG PO BID, (Reported) TAKES 2 (500MG) TABLETS [place]-3/Dha/Epa/Fish Oil 1 Each Capsule, 1,000 MG PO DAILY, (Reported) Omeprazole 20 Mg Capsule.dr, 20 MG PO DAILY, (Reported) Potassium Chloride 10 Meq Tablet.er, 10 MEQ PO MoTuWeThFrSa, (Reported) DOES NOT TAKE ON SUNDAYS Propylene Glycol/Peg 400 15 Ml Drops, 1 DROP OU BID PRN for DRY EYES, (Reported) Simvastatin 20 Mg Tablet, 20 MG PO HS, (Reported) Tizanidine HCl 2 Mg Tablet, 2 MG PO HS, (Reported) Vit C/E/Zn/Coppr/Lutein/Zeaxan 1 Each Capsule, 1 CAP PO BID, (Reported) Patient Home Medication List Home Medication List Reviewed: Yes Review of Systems Review of Systems Constitutional: see HPI, chills, fever EENTM: no symptoms reported Respiratory: see HPI, short of breath; No wheezing Cardiovascular: No chest pain; edema; No palpitations Gastrointestinal: No nausea, No vomiting Musculoskeletal: no symptoms reported Skin: no symptoms reported Psychiatric/Neurological: No Symptoms Reported All Other Systems Reviewed Negative Unless Noted: Yes Past Ssgneyx-Oungbd-Rezmvb Hx Past Med/Social Hx: Reviewed Nursing Past Med/Soc Hx Patient Social History Alcohol Use: Denies Use Recreational Drug Use: No Type Used: Cigarettes Former Smoker, Quit: Mar 24, 1992 2nd Hand Smoke Exposure: Yes Recent Foreign Travel: No Contact w/Someone Who Travel: No Recent Hopitalizations: No Immunizations Up To Date Tetanus Booster (TDap): Unknown Date of Pneumonia Vaccine: Oct 30, 2015 Date of Influenza Vaccine: Aug 30, 2017 Seasonal Allergies Seasonal Allergies: No Past Medical History Surgeries: Yes (NASAL POLYPS, lithrotripsy, l arm) CABG, Coronary Stent, Open Heart Surgery, Pacemaker Respiratory: Yes Pneumonia, COPD Currently Using CPAP: No Currently Using BIPAP: No Cardiac: Yes Coronary Artery Disease, Heart Attack, High Cholesterol, Hypertension Neurological: No Reproductive Disorders: No Sexually Transmitted Disease: No HIV/AIDS: No Genitourinary: Yes (PROSTATE CA) Prostate Problems Gastrointestinal: Yes Chronic Constipation Musculoskeletal: Yes Arthritis Endocrine: Yes Hypothyroidsim, Diabetes, Non-Insulin dep HEENT: No Loss of Vision: Left Hearing Impairment: Hard of Hearing Cancer: Yes Prostate Did You Recieve Any Treatments: Yes What Type of Treatment Did You: Radiation Psychosocial: Yes Anxiety, Depression Integumentary: No Blood Disorders: No Adverse Reaction/Blood Tranf: No Family Medical History Reviewed Nursing Family Hx Patient reports no known family medical history. No Pertinent Family Hx, Hypertension Physical Exam Vital Signs - First Documented 05/11/19 05/11/19 10:05 11:25 Temp 99.6 Pulse 118 Resp 18 B/P (MAP) 132/97 (109) Pulse Ox 95 O2 Delivery Nasal Cannula O2 Flow Rate 2.00 Capillary Refill : Height: 5'11.00" Weight: 234lbs. 8.0oz. 106.381149uo; 32.7 BMI Method:Stated General Appearance: WD/WN, no apparent distress HEENT: PERRL/EOMI, pharynx normal Neck: full range of motion, supple Respiratory: lungs clear, normal breath sounds Cardiovascular: no murmur, tachycardia Gastrointestinal: non tender, soft Extremities: non-tender, normal inspection, pedal edema (mild bilateral pedal edema) Neurologic/Psychiatric: alert, oriented x 3 Skin: normal color, warm/dry Focused Exam Lactate Level 05/11/19 10:20: Lactic Acid Level 2.95*H Lactic Acid Level Laboratory Tests Test 05/11/19 10:20 Lactic Acid Level 2.95 MMOL/L (0.50-2.00) *H Progress/Results/Core Measures Suspected Sepsis SIRS Temperature: Pulse: Respiratory Rate: Laboratory Tests 05/11/19 10:13: White Blood Count 14.4H Blood Pressure / Mean: 05/11/19 10:20: Lactic Acid Level 2.95*H Laboratory Tests 05/11/19 10:13: Creatinine 1.08, INR Comment 1.2, Platelet Count 266, Total Bilirubin 0.6 Results/Orders Lab Results Laboratory Tests Test 05/11/19 10:13 05/11/19 10:18 05/11/19 10:20 05/11/19 11:18 Range/Units White Blood Count 14.4 H 4.3-11.0 10^3/uL Red Blood Count 4.02 L 4.35-5.85 10^6/uL Hemoglobin 12.4 L 13.3-17.7 G/DL Hematocrit 38 L 40-54 % Mean Corpuscular Volume 94 80-99 FL Mean Corpuscular Hemoglobin 31 25-34 PG Mean Corpuscular Hemoglobin Concent 33 32-36 G/DL Red Cell Distribution Width 15.0 H 10.0-14.5 % Platelet Count 266 130-400 10^3/uL Mean Platelet Volume 9.1 7.4-10.4 FL Neutrophils (%) (Auto) 91 H 42-75 % Lymphocytes (%) (Auto) 1 L 12-44 % Monocytes (%) (Auto) 7 0-12 % Eosinophils (%) (Auto) 0 0-10 % Basophils (%) (Auto) 0 0-10 % Neutrophils # (Auto) 13.2 H 1.8-7.8 X 10^3 Lymphocytes # (Auto) 0.2 L 1.0-4.0 X 10^3 Monocytes # (Auto) 1.0 0.0-1.0 X 10^3 Eosinophils # (Auto) 0.0 0.0-0.3 10^3/uL Basophils # (Auto) 0.0 0.0-0.1 10^3/uL Neutrophils % (Manual) 87 % Lymphocytes % (Manual) 5 % Monocytes % (Manual) 3 % Eosinophils % (Manual) 0 % Basophils % (Manual) 0 % Band Neutrophils 5 % Anisocytosis SLIGHT Prothrombin Time 15.8 H 12.2-14.7 SEC INR Comment 1.2 0.8-1.4 Activated Partial Thromboplast Time 36 H 24-35 SEC Sodium Level 136 135-145 MMOL/L Potassium Level 4.1 3.6-5.0 MMOL/L Chloride Level 101 98-107 MMOL/L Carbon Dioxide Level 21 21-32 MMOL/L Anion Gap 14 5-14 MMOL/L Blood Urea Nitrogen 24 H 7-18 MG/DL Creatinine 1.08 0.60-1.30 MG/DL Estimat Glomerular Filtration Rate > 60 BUN/Creatinine Ratio 22 Glucose Level 198 H 70-105 MG/DL Calcium Level 9.1 8.5-10.1 MG/DL Corrected Calcium 9.1 8.5-10.1 MG/DL Total Bilirubin 0.6 0.1-1.0 MG/DL Aspartate Amino Transf (AST/SGOT) 15 5-34 U/L Alanine Aminotransferase (ALT/SGPT) 19 0-55 U/L Alkaline Phosphatase 59 40-136 U/L Troponin I < 0.028 <0.028 NG/ML Total Protein 6.9 6.4-8.2 GM/DL Albumin 4.0 3.2-4.5 GM/DL B-Type Natriuretic Peptide 81.8 <100.0 PG/ML Lactic Acid Level 2.95 *H 0.50-2.00 MMOL/L Urine Color YELLOW Urine Clarity SLIGHTLY CLOUDY Urine pH 5 5-9 Urine Specific [place] 1.020 1.016-1.022 Urine Protein NEGATIVE NEGATIVE Urine Glucose (UA) NEGATIVE NEGATIVE Urine Ketones NEGATIVE NEGATIVE Urine Nitrite NEGATIVE NEGATIVE Urine Bilirubin NEGATIVE NEGATIVE Urine Urobilinogen NORMAL NORMAL MG/DL Urine Leukocyte Esterase NEGATIVE NEGATIVE Urine RBC (Auto) NEGATIVE NEGATIVE Urine RBC NONE /HPF Urine WBC NONE /HPF Urine Squamous Epithelial Cells 2-5 /HPF Urine Crystals NONE /LPF Urine Bacteria TRACE /HPF Urine Casts NONE /LPF Urine Mucus SMALL H /LPF Urine Culture Indicated CULTURE PENDING My Orders Orders - LIONEL TOLEDO MD Cbc With Automated Diff (05/11/19 10:11) Comprehensive Metabolic Panel (05/11/19 10:11) Blood Culture (05/11/19 10:11) Sputum Culture (05/11/19 10:11) Urinalysis (05/11/19 10:11) Urine Culture (05/11/19 10:11) Protime With Inr (05/11/19 10:11) Partial Thromboplastin Time (05/11/19 10:11) Chest 1 View, Ap/Pa Only (05/11/19 10:11) Ed Iv/Invasive Line Start (05/11/19 10:11) Ekg Tracing (05/11/19 10:11) Troponin I (05/11/19 10:11) Vital Signs Adult Sepsis Patie Q15M (05/11/19 10:11) O2 (05/11/19 10:11) Remove Rings In Anticipation O (05/11/19 10:11) Lactic Acid Analyzer (05/11/19 10:11) Ns Iv 500 Ml (Sodium Chloride 0.9%) (05/11/19 10:11) BNP (05/11/19 10:39) Manual Differential (05/11/19 10:13) Albuterol/Ipra Inhalation Soln (Duoneb I (05/11/19 11:15) Svn Small Volume Nebulizer (05/11/19 11:06) Piperacillin Sodium/Tazobactam (Zosyn Vi (05/11/19 11:15) Medications Given in ED Current Medications Medications Dose Ordered Sig/Pat Route Start Time Stop Time Status Last Admin Dose Admin Albuterol/ Ipratropium 3 ml ONCE ONCE INH 05/11/19 11:15 05/11/19 11:16 DC 05/11/19 11:25 3 ML Piperacillin Sod/ Tazobactam Sod 4.5 gm/Sodium Chloride 100 ml @ 200 mls/hr ONCE ONCE IV 05/11/19 11:15 05/11/19 11:44 DC 05/11/19 11:31 200 MLS/HR Sodium Chloride 500 ml @ 0 mls/hr Q0M ONCE IV 05/11/19 10:11 05/11/19 10:13 DC 05/11/19 10:37 500 MLS/HR Vital Signs/I&O 05/11/19 05/11/19 10:05 11:25 Temp 99.6 Pulse 118 Resp 18 B/P (MAP) 132/97 (109) Pulse Ox 95 95 O2 Delivery Nasal Cannula O2 Flow Rate 2.00 2.00 Capillary Refill : Progress Note : Progress Note Seen and evaluated. IV, labs and EKG and chest x-ray ordered. Blood cultures and lactic acid ordered. We will add BNP. Monitor patient. 1138: Patient noted to have right lower lobe pneumonia. Zosyn has been initiated. Labs are delayed due to machine error but white Noted to be elevated. Has normal creatinine previo usly. We will give an initial dose of Zosyn 4.5 g IV and adjusted needed. Patient still in paced rhythm at rate of 109. I did discuss the case with Dr. Michelle who accepts patient for admission, inpatient status and requests consult with Dr. Subramanian and Dr. De La Torre. 1139: I did discuss the case with Dr. Subramanian and he'll see patient in consult. Patient was due to have sleep study on and follow-up CT scan on Thursday with Dr. Subramanian but Dr. Subramanian can adjust this as needed. 1140: I did discuss the case with Dr. De La Torre who is on-call for Dr. Dixon, primary head librarian for patient, and he will evaluate the patient. He did have concerns regarding the rate but this is a clearly paced rhythm currently. He will evaluate further as needed. Admit, inpatient status. Patient and family agree with plan. ECG Initial ECG Impression Date: May 11, 2019 Initial ECG Impression Time: 10:14 Initial ECG Rate: 122 Comment Ventricular paced rhythm at rate of 122. Left axis deviation. No evidence of ST elevation SD. Similar to previous of 03/05/19. Interpreted by me. Diagnostic Imaging Diagonstic Imaging: Xray Plain Films/CT/US/NM/MRI: chest Comments [facility], [place] NAME: JUAN LUIS FULTON Ritika [facility] REC#: [id number] PT STATUS: REG ER : [id number] PHYSICIAN: LIONEL TOLEDO MD ADMIT DATE: 05/11/19/ER Draft Date of Exam:05/11/19 CHEST 1 VIEW, AP/PA ONLY Indication: Shortness breath. Portable chest 10:43 AM There are postop changes from CABG surgery. There is a dual-chamber pacemaker. There are infiltrates present in the right mid lower lung that have increased compared to 03/05/2019. Left lung is clear. Impression: Increasing infiltrate right lung suspicious for pneumonia. Dictated on workstation # [id number] Dict: 05/11/19 1046 Trans: 05/11/19 1048 [facility] [id number] Interpreted by: LIONEL ROD MD Electronically signed by: Critical Care Note Critical Care Start Time: 13:50 Stop Time: 16:40 Total Time (minutes) 70 Departure Impression Primary Impression: Right lower lobe pneumonia Qualified Codes: J18.1 - Lobar pneumonia, unspecified organism Additional Impression: Tachycardia Disposition: ADMITTED INPATIENT Condition: Stable Admissions Decision to Admit Reason: Admit from ER (Trauma) Decision to Admit/Date: May 11, 2019 Time/Decision to Admit Time: 11:38 Departure-Patient Inst. Referrals: DAVID CORDERO MD (PCP/Family) Primary Care Physician LIONEL TOLEDO MD May 11, 2019 10:38
[2019-05-11 10:46] LABS: INR 1.2 (0.8-1.4); PROTHROMBIN TIME PATIENT 15.8 SEC (12.2-14.7)
--- NOTE | 2019-05-11 10:49 | Diagnostic Imaging Report ---
Indication: Shortness breath. Portable chest 10:43 AM There are postop changes from CABG surgery. There is a dual-chamber pacemaker. There are infiltrates present in the right mid lower lung that have increased compared to 03/05/2019. Left lung is clear. Impression: Increasing infiltrate right lung suspicious for pneumonia. Dictated by: Dictated on workstation # [id number]
[2019-05-11 10:58] LABS: BILIRUBIN,TOTAL 0.6 MG/DL (0.1-1.0); CALCIUM 9.1 MG/DL (8.5-10.1); CARBON DIOXIDE 21 MMOL/L (21-32); CHLORIDE 101 MMOL/L (98-107); POTASSIUM 4.1 MMOL/L (3.6-5.0); SODIUM 136 MMOL/L (135-145)
[2019-05-11] MEDS ORDERED: RT-ALBUTEROL/IPRATROPIUM 3 ML (DUONEB) VIAL INH ONE (11:15)
[2019-05-11] MEDS ORDERED: PIPERACILLIN SODIUM/TAZOBACTAM 4.5 GM in NS (IVPB) 100 ML IV ONE (11:15)
[2019-05-11 11:25] LABS: BILIRUBIN,URINE NEGATIVE (NEGATIVE); CLARITY,URINE SLIGHTLY CLOUDY; COLOR,URINE YELLOW; GLUCOSE, URINE (UA) NEGATIVE (NEGATIVE); KETONES,URINE NEGATIVE (NEGATIVE); LEUKOCYTE ESTERASE ,URINE NEGATIVE (NEGATIVE); NITRITE,URINE NEGATIVE (NEGATIVE); PH,URINE 5 (5-9); PROTEIN,URINE NEGATIVE (NEGATIVE); UROBILINOGEN,URINE NORMAL (NORMAL)
[2019-05-11 11:29] LABS: BAND NEUTROPHILS 5 %; BASOPHILS % (MANUAL) 0 %; EOSINOPHILS % (MANUAL) 0 %; LYMPHOCYTES % (MANUAL) 5 %; MONOCYTES % (MANUAL) 3 %; NEUTROPHILS % (MANUAL) 87 %
[2019-05-11 11:31] LABS: ANISOCYTOSIS SLIGHT
--- NOTE | 2019-05-11 11:37 | NUR ---
WAITING FOR ROOM
[2019-05-11 11:48] LABS: BACTERIA,URINE TRACE /HPF
[2019-05-11 11:59] VITALS: BP 154/79
--- NOTE | 2019-05-11 12:17 | NUR ---
PATIENT INFORMED THAT WE CON'T TO WAIT FOR A ROOM.
--- NOTE | 2019-05-11 12:44 | NUR ---
LAB HERE TO DRAW 2ND LATIC ACID.
[2019-05-11 12:48] LABS: ALANINE AMINOTRANSFERASE 19 U/L (0-55); ALKALINE PHOSPHATASE 59 U/L (40-136); BUN/CREATININE RATIO 22; CREATININE SERUM 1.08 MG/DL (0.60-1.30); GFR ESTIMATED > 60; GLUCOSE 198 MG/DL (70-105); TOTAL PROTEIN 6.9 GM/DL (6.4-8.2)
[2019-05-11 13:10] VITALS: BP 145/70
--- NOTE | 2019-05-11 13:10 | NUR ---
JUAN LUIS FULTON admitted to room 432-1, with an admitting diagnosis of PNEUMONIA, on 05/11/19 from ED via CART, accompanied by STAFF AND STEPSON. JUAN LUIS FULTON introduced to surroundings, call light, bed controls, phone, TV, temperature control, lights, meal times, smoking policy, visitor policy, side rail policy, bathrooms and showers. Patient Rights given to patient in the handbook. JUAN LUIS FULTON verbalizes understanding that [facility] is not responsible for the loss or damage to any personal effects or valuables that are kept in the patients posession during their hospitalization. The following Patient Care Plans were discussed with the PATIENT: Discharge Planning, INFECTION, INEFFECTIVE BREATHING AND KNOWLEDGE. JUAN LUIS FULTON verbalizes understanding of Interdisciplinary Patient Education.
[2019-05-11] MEDS ORDERED: CATHETER FLUSH 10 ML SYR IV PRN (13:30)
--- NOTE | 2019-05-11 13:56 | History & Physical-Hospitalist ---
History of Present Illness HPI/Chief Complaint CC: Shortness of breath with fever HPI: This is an 88yoWM clinic pt of Dr. Cuellar that I know from prior pneumonia episodes and exacerbation of COPD who also sees Dr. Dixon for pacemaker management and Dr. Subramanian for GIOVANNI who presented to the ER with fever and SOB found to have right lower lobe pneumonia. Pt does not ordinarily use oxygen only when hes got a respiratory illness in the hospital. Dr. De La Torre has been consulted will interrogate his pacemaker and gentle IV fluids for the elevated lactic acid will be initiated but careful to prevent volume overload due to CHF history atrial fibrillation and his elevated lactic acid increased actually from initial so we will monitor that closely. Pt was placed on antibiotic treatment and will be closely followed. Source: patient, family, RN/MD, old records Exam Limitations: no limitations Date Seen 05/11/19 Time Seen by a Provider: 13:45 Attending Physician Hailey Jimenez DO PCP José Miguel Cuellar MD Referring Physician Date of Admission May 11, 2019 at 11:43 Home Medications & Allergies Home Medications Reviewed patient Home Medication Reconciliation performed by pharmacy medication reconciliations criminalist technician and/or nursing. Patients Allergies have been reviewed. Allergies Allergies Coded Allergies No Known Drug Allergies (Verified07/15/18) Past Zvzsxle-Teypwe-Ygegtl Hx Past Med/Social Hx: Reviewed Nursing Past Med/Soc Hx, Reviewed and Corrections made Patient Social History Marrital Status: single Employed/Student: retired Alcohol Use: Denies Use Recreational Drug Use: No Smoking Status: Former Smoker Former Smoker, Quit: Mar 24, 1992 Type Used: Cigarettes 2nd Hand Smoke Exposure: Yes Physical Abuse Screen: No Sexual Abuse: No Recent Foreign Travel: No Contact w/other who traveled: No Recent Hopitalizations: No Recent Infectious Disease Expo: No Immunizations Up To Date Tetanus Booster (TDap): Unknown Date of Pneumonia Vaccine: Oct 30, 2015 Date of Influenza Vaccine: Aug 30, 2017 Seasonal Allergies Seasonal Allergies: No Past Medical History Surgeries: CABG, Coronary Stent, Open Heart Surgery, Pacemaker Respiratory: COPD, Pneumonia, Sleep Apnea Currently Using CPAP: No Currently Using BIPAP: No Cardiac: Atrial Fibrillation, Coronary Artery Disease, Heart Attack, High Cholesterol, Hypertension Reproductive: No Sexually Transmitted Disease: No HIV/AIDS: No Genitourinary: Prostate Problems Gastrointestinal: Gastroesophageal Reflux, Chronic Constipation Musculoskeletal: Arthritis Endocrine: Hypothyroidsim, Diabetes, Non-Insulin dep Are Your Blood Sugars Over 250: No Loss of Vision: Left Hearing Impairment: Denies, Hard of Hearing Cancer: Prostate Did You Recieve Any Treatments: Yes What Type of Treatment Did You: Radiation Psychosocial: Anxiety, Depression History of Blood Disorders: No Adverse Reaction to Blood [place]: No Family History Reviewed Nursing Family Hx Patient reports no known family medical history. No Pertinent Family Hx, Hypertension Review of Systems Constitutional: see HPI, dizziness, fever, malaise, weakness EENTM: no symptoms reported Respiratory: dyspnea on exertion, short of breath, wheezing Cardiovascular: no symptoms reported Gastrointestinal: no symptoms reported Genitourinary: no symptoms reported Musculoskeletal: no symptoms reported Skin: no symptoms reported Psychiatric/Neurological: No Symptoms Reported All Other Systems Reviewed Negative Unless Noted: Yes Physical Exam Physical Exam Vital Signs Vital Signs - First Documented 05/11/19 05/11/19 10:05 11:25 Temp 99.6 Pulse 118 Resp 18 B/P (MAP) 132/97 (109) Pulse Ox 95 O2 Delivery Nasal Cannula O2 Flow Rate 2.00 Capillary Refill : Less Than 3 Seconds Height, Weight, BMI Height: 5'11.00" Weight: 249lbs. 2.0oz. 113.857460yj; 34.8 BMI Method:Stated General Appearance: No Apparent Distress, WD/WN, Chronically ill, Obese Eyes: Right Eye Normal Inspection, Right Eye PERRL HEENT: PERRL/EOMI, Normal ENT Inspection, Pharynx Normal, Moist Mucous Membranes Neck: Full Range of Motion, Normal Inspection, Non Tender Respiratory: Chest Non Tender, No Accessory Muscle Use, No Respiratory Distress, Crackles, Decreased Breath Sounds Cardiovascular: Regular Rate, Rhythm, No Edema, No Gallop, No JVD, No Murmur, Normal Peripheral Pulses Gastrointestinal: Normal Bowel Sounds, No Organomegaly, No Pulsatile Mass, Non Tender, Soft Back: Normal Inspection, No CVA Tenderness, No Vertebral Tenderness Extremity: Normal Capillary Refill, Normal Inspection, Normal Range of Motion, Non Tender, No Calf Tenderness, No Pedal Edema Neurologic/Psychiatric: Alert, Oriented x3, No Motor/Sensory Deficits, Normal Mood/Affect Skin: Normal Color, Warm/Dry Lymphatic: No Adenopathy Results Results/Procedures Labs Laboratory Tests 05/11/19 10:13 Patient resulted labs reviewed. Assessment/Plan Admission Diagnosis Assessment: Sepsis RLL pneumonia COPD Pacemaker CAD Hypoxia AF DM CAD GERD Hypertension Hyperlipidemia History of prostate cancer Plan: Drs Marilynn and Britt are both appreciated Monitor labs O2 Nebs Abx Admission Status: Inpatient Order (span 2 midnights) Reason for Inpatient Admission: advanced age with pneumonia and copd and pacemaker with hypoxia will require 3 days inpatient Diagnosis/Problems Diagnosis/Problems (1) Right lower lobe pneumonia Status: Acute Qualifiers: Pneumonia type: due to unspecified organism Qualified Codes: J18.1 - Lobar pneumonia, unspecified organism (2) Tachycardia Status: Acute (3) CAD (coronary artery disease) Status: Chronic Qualifiers: Coronary Disease-Associated Artery/Lesion type: [place] artery [place] vs. transplanted heart: [place] heart Associated angina: without angina Qualified Codes: I25.10 - Atherosclerotic heart disease of [place] coronary artery without angina pectoris (4) Atrial fibrillation Status: Chronic Qualifiers: Atrial fibrillation type: chronic Qualified Codes: I48.2 - Chronic atrial fibrillation (5) Anticoagulant prescribed Status: Chronic (6) Hypertension Status: Chronic Qualifiers: Hypertension type: essential hypertension Qualified Codes: I10 - Essential (primary) hypertension (7) GERD (gastroesophageal reflux disease) Status: Chronic Qualifiers: Esophagitis presence: without esophagitis Qualified Codes: K21.9 - Gastro- esophageal reflux disease without esophagitis (8) PVD (peripheral vascular disease) Status: Chronic (9) Hypothyroidism Status: Chronic Qualifiers: Hypothyroidism type: acquired Qualified Codes: E03.9 - Hypothyroidism, unspecified (10) Hyperlipemia Status: Chronic Qualifiers: Hyperlipidemia type: mixed hyperlipidemia Qualified Codes: E78.2 - Mixed hyperlipidemia (11) COPD (chronic obstructive pulmonary disease) Status: Chronic Qualifiers: COPD type: unspecified COPD Qualified Codes: J44.9 - Chronic obstructive pulmonary disease, unspecified (12) Weakness Status: Chronic (13) CHF (congestive heart failure) Status: Chronic Qualifiers: Heart failure type: unspecified Heart failure chronicity: unspecified Qualified Codes: I50.9 - Heart failure, unspecified (14) Depression Status: Chronic Qualifiers: Depression Type: unspecified Qualified Codes: F32.9 - Major depressive disorder, single episode, unspecified (15) Acute renal insufficiency Status: Acute (16) Leukocytosis Status: Acute Qualifiers: Leukocytosis type: leukemoid reaction Qualified Codes: D72.823 - Leukemoid reaction (17) Anemia Status: Chronic Qualifiers: Anemia type: unspecified type Qualified Codes: D64.9 - Anemia, unspecified (18) Lactic acid acidosis Status: Acute Clinical Quality Measures DVT/VTE Risk/Contraindication: Risk Factor Score Per Nursin RFS Level Per Nursing on Admit: 4+=Very High HAILEY JIMENEZ DO May 11, 2019 13:56
--- NOTE | 2019-05-11 14:23 | Consultation-Cardiology ---
HPI-Cardiology Cardiology Consultation Date of Consultation 05/11/19 Date of Admission Time Seen by Provider: 13:45 Indication: Tachycardia HPI Patient is a very pleasant 88 y/o male with h/o CAD, SSS s/p PPM, PAF. Primary financial reporting advisor is Dr. Dixon. Patient presented to the ER with complaints of increased dyspnea, onset approx 5am upon awakening. Reports nonproductive cough for the past couple days. Patient had recent hospitalization back in February 2019 for pneumonia. Denies F/C/NS. Denies any chest pain, palpitations or lightheadedness. Workup done in ER revealed pneumonia. Found to be tachycardic and appeared to be pacing in the 120's. Home Medications & Allergies Allergies: Coded Allergies: No Known Drug Allergies (Verified , 07/15/18) Home Medication List Reviewed: Yes TCQ-[id number]-Mtmnmh Hx Patient Social History Marital Status: single Employed/Student: retired Alcohol Use: Denies Use Recreational Drug Use: No Smoking Status: Former Smoker Former smoker/When Quit: March 30, 1986 Type Used: Cigarettes 2nd Hand Smoke Exposure: Yes Recent Foreign Travel: No Recent Infectious Disease Expo: No Recent Hopitalizations: No Physical Abuse Screen: No Sexual Abuse: No Immunizations Up To Date Tetanus Booster (TDap): Unknown Date of Pneumonia Vaccine: Oct 30, 2015 Date of Influenza Vaccine: Aug 30, 2017 Past Medical History CAD, PPM, PAF Family Medical History Significant Family History: No Pertinent Family Hx, Hypertension Family History: Patient reports no known family medical history. Review of Systems-General Review of Systems Constitutional: see HPI, dizziness, fever, malaise, weakness EENTM: no symptoms reported; No epistaxis, No nose pain Respiratory: cough, dyspnea on exertion; No hemoptysis, No orthopnea; short of breath, wheezing Cardiovascular: no symptoms reported; No chest pain, No palpitations Gastrointestinal: no symptoms reported; No abdominal pain, No constipation Genitourinary: no symptoms reported; No dysuria, No frequency, No hematuria Musculoskeletal: no symptoms reported; No back pain, No joint pain Skin: no symptoms reported Psychiatric/Neurological: No Symptoms Reported All Other Systems Reviewed Negative Unless Noted: Yes Reviewed Test Results Reviewed Test Results Lab Laboratory Tests 05/11/19 10:13: White Blood Count 14.4H, Red Blood Count 4.02L, Hemoglobin 12.4L, Hematocrit 38L , Mean Corpuscular Volume 94, Mean Corpuscular Hemoglobin 31, Mean Corpuscular Hemoglobin Concent 33, Red Cell Distribution Width 15.0H, Platelet Count 266, Mean Platelet Volume 9.1, Neutrophils (%) (Auto) 91H, Lymphocytes (%) (Auto) 1L, Monocytes (%) (Auto) 7, Eosinophils (%) (Auto) 0, Basophils (%) (Auto) 0, Neutrophils # (Auto) 13.2H, Lymphocytes # (Auto) 0.2L, Monocytes # (Auto) 1.0, Eosinophils # (Auto) 0.0, Basophils # (Auto) 0.0, Neutrophils % (Manual) 87, Lymphocytes % (Manual) 5, Monocytes % (Manual) 3, Eosinophils % (Manual) 0, Basophils % (Manual) 0, Band Neutrophils 5, Anisocytosis SLIGHT, Prothrombin Time 15.8H, INR Comment 1.2, Activated Partial Thromboplast Time 36H, Sodium Level 136, Potassium Level 4.1, Chloride Level 101, Carbon Dioxide Level 21, Anion Gap 14, Blood Urea Nitrogen 24H, Creatinine 1.08, Estimat Glomerular Filtration Rate > 60, BUN/Creatinine Ratio 22, Glucose Level 198H, Calcium Level 9.1, Corrected Calcium 9.1, Total Bilirubin 0.6, Aspartate Amino Transf (AST/SGOT) 15, Alanine Aminotransferase (ALT/SGPT) 19, Alkaline Phosphatase 59, Troponin I < 0.028, Total Protein 6.9, Albumin 4.0 05/11/19 10:18: B-Type Natriuretic Peptide 81.8 05/11/19 10:20: Lactic Acid Level 2.95*H 05/11/19 11:18: Urine Color YELLOW, Urine Clarity SLIGHTLY CLOUDY, Urine pH 5, Urine Specific [place] 1.020, Urine Protein NEGATIVE, Urine Glucose (UA) NEGATIVE, Urine Ketones NEGATIVE, Urine Nitrite NEGATIVE, Urine Bilirubin NEGATIVE, Urine Urobilinogen NORMAL, Urine Leukocyte Esterase NEGATIVE, Urine RBC (Auto) NEGAT HERMELINDA, Urine RBC NONE, Urine WBC NONE, Urine Squamous Epithelial Cells 2-5, Urine Crystals NONE, Urine Bacteria TRACE, Urine Casts NONE, Urine Mucus SMALLH, Urine Culture Indicated CULTURE PENDING 05/11/19 12:45: Lactic Acid Level 2.73*H 05/11/19 14:15: Glucometer 127H ECG Impression ECG Initial ECG Rhythm: S.Tach Physical Exam Physical Exam Vital Signs Vital Signs - First Documented 05/11/19 05/11/19 10:05 11:25 Temp 99.6 Pulse 118 Resp 18 B/P (MAP) 132/97 (109) Pulse Ox 95 O2 Delivery Nasal Cannula O2 Flow Rate 2.00 Capillary Refill : Less Than 3 Seconds Height, Weight, BMI Height: 5'11.00" Weight: 249lbs. 2.0oz. [id number]; 34.8 BMI Method:Stated General Appearance: No Apparent Distress, WD/WN, Chronically ill, Obese Eyes: Right Eye Normal Inspection, Right Eye PERRL HEENT: PERRL/EOMI, Normal ENT Inspection, Pharynx Normal, Moist Mucous Membranes Neck: Full Range of Motion, Normal Inspection, Non Tender Respiratory: Chest Non Tender, No Accessory Muscle Use, No Respiratory Distress, Crackles, Decreased Breath Sounds Cardiovascular: Regular Rate, Rhythm, No Edema, No Gallop, No JVD, No Murmur, Normal Peripheral Pulses Gastrointestinal: Normal Bowel Sounds, No Organomegaly, No Pulsatile Mass, Non Tender, Soft Back: Normal Inspection, No CVA Tenderness, No Vertebral Tenderness Extremity: Normal Capillary Refill, Normal Inspection, Normal Range of Motion, Non Tender, No Calf Tenderness, No Pedal Edema Neurologic/Psychiatric: Alert, Oriented x3, No Motor/Sensory Deficits, Normal Mood/Affect Skin: Normal Color, Warm/Dry Lymphatic: No Adenopathy A/P-Cardiology Admission Diagnosis Pneumonia Tachycardia PAF CAD Assessment/Plan Pneumonia - management per medical/pulmonary services Tachycardia- EKG revealed V-paced rhythm in the 120's. Appears to be sinus ta chycardia, continue on telemetry and continue to monitor. PAF, maintianed on diltiazem and Eliquis as outpatient, restart home medications and continue to monitor. Coronary artery disease with bypass surgery in August 2007, consisting of left internal mammary artery graft to left anterior descending, saphenous vein graft to right coronary, saphenous vein graft to distal left anterior descending, saphenous vein graft to circumflex, and sequential radial artery to first and second obtuse marginal branches, by Dr. Ferguson at [facility]. Cardiac cath of November 04, 2015 showed 90% distal LMCA stenosis and 60- 70% prox RCA stenosis; patent DELA CRUZ to LAD; patent SVG to distal LAD; patent SVG to a diag; patent SVG to an OM of LCx; patent SVG to RCA; chronically occluded aortocoronary graft, presumably to other OMs; LVEF 45-50%; mod elevation of LVEDP Echocardiogram of Dec 2016 showed mild impairment of global LV systolic function with an LVEF of 45%. Distal septal and apical hypokinesis. Mild mitral annular calcification without evidence of significant valvular stenosis. Trivial to mild aortic, mitral and tricuspid regurg. No evidence of significant valvular stenosis. 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 The pulse generator was changed on 03/24/17. EKG reveals V-paced at 100-120bpm, most recent interrogation of January 2019. [employer] rep to interrogate/reprogram PPM this afternoon HTN- H/O chronically somewhat low blood pressure, blood pressure controlled at this time, continue to monitor. Hypothyroidism being treated with thyroid replacement therapy. 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 Liu a few years ago. History of prostate enlargement/cancer, being followed by Dr. White. Carotid arterial disease being followed by Dr. Douglas at [place], [place]. Thank you for allowing us to participate in the management of Mr. Jacob. This is Cristopher Rodriguez PA-C, as a scribe for Dr. De La Torre. Clinical Quality Measures DVT/VTE Risk/Contraindication: Risk Factor Score Per Nursin RFS Level Per Nursing on Admit: 4+=Very High CRISTOPHER KINGSTON May 11, 2019 14:23
--- NOTE | 2019-05-11 14:48 | Pulmonary Consultation ---
History of Present Illness History of Present Illness Date of Consultation 05/11/19 14:43 Time Seen by Provider: 09:22 Date of Admission Reason for Visit: Tachycardia History of Present Illness 88yo with hx of COPD, CHF, GIOVANNI pt admitted secondary to worsening SOB and found to have RLL. Pt does not have home oxygen however is currently requiring it. Pt was placed on IV ABx and admitted for close observation. I am consulted for pulmonary management. Allergies and Home Medications Allergies Coded Allergies: No Known Drug Allergies (Verified , 07/15/18) Home Medications Albuterol Sulfate 18 Gm Hfa.aer.ad, 2 PUFF INH Q4H PRN for SHORTNESS OF BREATH, (Reported) Apixaban 5 Mg Tablet, 5 MG PO BID, (Reported) Aspirin 81 Mg Tablet.dr, 81 MG PO DAILY, (Reported) Cefdinir 300 Mg Capsule, 300 MG PO BID Prescribed by: DAVID CORDERO on 05/13/19 1347 Cholecalciferol (Vitamin D3) 2,000 Unit Tablet, 2,000 UNIT PO DAILY, (Reported) Cyanocobalamin (Vitamin B-12) 2,500 Mcg Tab.subl, 2,500 MCG SL DAILY, (Reported) Diltiazem HCl 240 Mg Cap.er.24h, 240 MG PO DAILY, (Reported) Fluticasone/Umeclidin/Vilanter 1 Each Blst.w.dev, 1 PUFF INH DAILY, (Reported) Furosemide 40 Mg Tablet, 40 MG PO MoTuWeThFrSa, (Reported) DOES NOT TAKE ON SUNDAYS Glimepiride 4 Mg Tablet, 4 MG PO DAILY, (Reported) Irbesartan 150 Mg Tablet, 150 MG PO DAILY, (Reported) Levothyroxine Sodium 100 Mcg Tablet, 100 MCG PO DAILY, (Reported) Magnesium Oxide 500 Mg Capsule, 500 MG PO DAILY, (Reported) Metformin HCl 500 Mg Tablet, 1,000 MG PO BID, (Reported) TAKES 2 (500MG) TABLETS [place]-3/Dha/Epa/Fish Oil 1 Each Capsule, 1,000 MG PO DAILY, (Reported) Omeprazole 20 Mg Capsule.dr, 20 MG PO DAILY, (Reported) Potassium Chloride 10 Meq Tablet.er, 10 MEQ PO MoTuWeThFrSa, (Reported) DOES NOT TAKE ON SUNDAYS Propylene Glycol/Peg 400 15 Ml Drops, 1 DROP OU BID PRN for DRY EYES, (Reported) Simvastatin 20 Mg Tablet, 20 MG PO HS, (Reported) Tizanidine HCl 2 Mg Tablet, 2 MG PO HS, (Reported) Vit C/E/Zn/Coppr/Lutein/Zeaxan 1 Each Capsule, 1 CAP PO BID, (Reported) Past Vqduuke-Ibvxgm-Qwzaet Hx Past Med/Social Hx: Reviewed Nursing Past Med/Soc Hx, Reviewed and Corrections made Patient Social History Alcohol Use: Denies Use Recreational Drug Use: No Smoking Status: Former Smoker Type Used: Cigarettes Former Smoker, Quit: Mar 24, 1992 2nd Hand Smoke Exposure: Yes Recent Foreign Travel: No Contact w/Someone Who Travel: No Recent Infectious Disease Expo: No Recent Hopitalizations: No Immunizations Up To Date Tetanus Booster (TDap): Unknown Date of Pneumonia Vaccine: Oct 30, 2015 Date of Influenza Vaccine: Aug 30, 2017 Seasonal Allergies Seasonal Allergies: No Past Medical History Surgeries: Yes (NASAL POLYPS, ) CABG, Coronary Stent, Open Heart Surgery, Pacemaker Respiratory: Yes Pneumonia, COPD Currently Using CPAP: No Currently Using BIPAP: No Cardiac: Yes (PACEMAKER) Atrial Fibrillation, Coronary Artery Disease, Heart Attack, High Cholesterol, Hypertension Neurological: No Reproductive Disorders: No Sexually Transmitted Disease: No HIV/AIDS: No Genitourinary: Yes (PROSTATE CA) Prostate Problems Gastrointestinal: Yes Gastroesophageal Reflux, Chronic Constipation Musculoskeletal: Yes Arthritis Endocrine: Yes Hypothyroidsim, Diabetes, Non-Insulin dep Are Your Blood Sugars Over 250: No HEENT: No Loss of Vision: Left Hearing Impairment: Denies, Hard of Hearing Cancer: Yes Prostate Did You Recieve Any Treatments: Yes What Type of Treatment Did You: Radiation Psychosocial: Yes Anxiety, Depression Integumentary: No Blood Disorders: No Adverse Reaction/Blood Tranf: No Family Medical History Reviewed Nursing Family Hx Patient reports no known family medical history. No Pertinent Family Hx, Hypertension Review of Systems Time Seen by Provider: 09:25 Constitutional: Fever, Chills, Sweats, Weakness, Malaise, Other Eyes: No: Pain, Vision change, Conjunctivae inflammation, Eyelid inflammation, Other, Redness ENT: Nose congestion; No: Ear pain, Ear discharge, Nose pain, Nose discharge, Mouth pain, Mouth swelling, Throat pain, Throat swelling, Other Respiratory: Cough, Dry, Shortness of breath, SOB with excertion, Wheezing Cardiovascular: Paroxysmal Noc. Dyspnea; No: Chest Pain, Palpitations, Orthopnea, Edema, Lt Headedness, Other Gastrointestinal: No: Nausea, Vomiting, Abdominal Pain, Diarrhea, Constipation, Melena, Hematochezia, Other Sepsis Event Evaluation Height, Weight, BMI Height: 5'11.00" Weight: 249lbs. 2.0oz. 113.990458oo; 34.8 BMI Method:Stated Exam Exam Vital Signs Date Time Temp Pulse Resp B/P (MAP) Pulse Ox O2 Delivery O2 Flow Rate FiO2 05/11/19 13:10 98.2 105 22 145/70 Nasal Cannula 2.00 05/11/19 12:44 100 18 136/71 (92) 98 05/11/19 11:59 106 18 154/79 (104) 96 Nasal Cannula 2.00 05/11/19 11:25 95 Nasal Cannula 2.00 05/11/19 10:05 99.6 118 18 132/97 (109) 95 2.00 Height & Weight Height: 5'11.00" Weight: 249lbs. 2.0oz. 113.049581se; 34.8 BMI Method:Stated General Appearance: No Apparent Distress, WD/WN, Chronically ill, Obese HEENT: PERRL/EOMI, Normal ENT Inspection, Pharynx Normal, Moist Mucous Membrane s Neck: Full Range of Motion, Normal Inspection, Non Tender Respiratory: Chest Non Tender, No Accessory Muscle Use, No Respiratory Distress, Crackles, Decreased Breath Sounds Cardiovascular: Regular Rate, Rhythm, No Edema, No Gallop, No JVD, No Murmur, Normal Peripheral Pulses Capillary Refill: Less Than 3 Seconds Gastrointestinal: non tender, soft Extremity: Normal Capillary Refill, Normal Inspection, Normal Range of Motion, Non Tender, No Calf Tenderness, No Pedal Edema Neurologic/Psychiatric: Alert, Oriented x3, No Motor/Sensory Deficits, Normal Mood/Affect Skin: Normal Color, Warm/Dry Lymphatic: No Adenopathy Results Lab Laboratory Tests 05/11/19 10:13 Assessment/Plan Assessment/Plan RLL PNA with sepsis -Give another liter bolus of LR -Increase IVF to 150cc/hr -sandoval cultures -Check MRSA swab COPDAE -SVNS -Steroids Metabolic lactic acidosis -IVF -Monitor CAD with PVD Afib hx Hypothyroid CHF GAGANDEEP VALLEJO DO May 11, 2019 14:48
[2019-05-11] MEDS ORDERED: FLUT1BLS3 INH (14:49)
[2019-05-11] MEDS ORDERED: GLIM4TAB PO (14:49)
[2019-05-11] MEDS ORDERED: LACTATED RINGERS 1,000 ML IV SCH (15:00)
[2019-05-11] MEDS: inSUlin ASPART (NovoLOG) 1 UNIT/0.01 ML (CHARGE PER UNIT) SC SCH ×2 (15:05→21:48)
--- NOTE | 2019-05-11 15:07 | NUR ---
WENT OVER THE EXT MED HX WITH THE PATIENT AND HE VERIFIED HOW HE TAKES HIS MEDICATIONS. HE VERIFIED HIS GLIMEPIRIDE DOSE HAS BEEN INCREASED FROM 2MG TO 4MG DAILY. HIS METFORMIN HAS ALSO BEEN INCREASED TO 2 TABS BID. HE IS NO LONGER TAKING THE SPIRIVA, OR SYMBICORT. HE IS NOW TAKING TRELEGY. HE IS STILL TAKING HIS LASIX AND POTASSIUM BUT DOES NOT TAKE THEM ON SUNDAYS. OTC MEDS: ASPIRIN 81MG DAILY VITAMIN D DAILY VITAMIN B12 DAILY MAG 500MG DAILY FISH OIL DAILY SYSTANE PRN PRESERVISION BID
[2019-05-11] MEDS: NS IV 1000 ML 1,000 ML IV SCH ×2 (15:11→21:48)
[2019-05-11] MEDS ORDERED: RT-ALBUTEROL/IPRATROPIUM 3 ML (DUONEB) VIAL IH PRN (15:15)
--- NOTE | 2019-05-11 15:15 | Consultation-Cardiology ---
HPI-Cardiology Cardiology Consultation Date of Consultation 05/11/19 Date of Admission Time Seen by Provider: 13:45 Indication: Tachycardia HPI Patient is a very pleasant 88 y/o male with h/o CAD, SSS s/p PPM, PAF. Primary unified communications engineer is Dr. Dixon. Patient presented to the ER with complaints of increased dyspnea, onset approx 5am upon awakening. Reports nonproductive cough for the past couple days. Patient had recent hospitalization back in February 2019 for pneumonia. Denies F/C/NS. Denies any chest pain, palpitations or lightheadedness. Workup done in ER revealed pneumonia. Found to be tachycardic and appeared to be pacing in the 120's. Home Medications & Allergies Allergies: Coded Allergies: No Known Drug Allergies (Verified , 07/15/18) Home Medication List Reviewed: Yes KEU-Xsccke-Mdnkrz Hx Patient Social History Marital Status: single, Employed/Student: retired Alcohol Use: Denies Use Recreational Drug Use: No Smoking Status: Former Smoker Former smoker/When Quit: March 30, 1986 Type Used: Cigarettes 2nd Hand Smoke Exposure: Yes Recent Foreign Travel: No Recent Infectious Disease Expo: No Recent Hopitalizations: No Physical Abuse Screen: No Sexual Abuse: No Immunizations Up To Date Tetanus Booster (TDap): Unknown Date of Pneumonia Vaccine: Oct 30, 2015 Date of Influenza Vaccine: Aug 30, 2017 Past Medical History CAD, PPM, PAF Family Medical History Significant Family History: No Pertinent Family Hx, Hypertension Family History: Patient reports no known family medical history. Review of Systems-General Review of Systems Constitutional: see HPI, dizziness, fever, malaise, weakness EENTM: no symptoms reported; No epistaxis, No nose pain Respiratory: cough, dyspnea on exertion; No hemoptysis, No orthopnea; short of breath, wheezing Cardiovascular: no symptoms reported; No chest pain, No palpitations Gastrointestinal: no symptoms reported; No abdominal pain, No constipation Genitourinary: see HPI; No dysuria, No frequency, No hematuria Musculoskeletal: see HPI; No back pain, No joint pain Skin: no symptoms reported Psychiatric/Neurological: See HPI All Other Systems Reviewed Negative Unless Noted: Yes Reviewed Test Results Reviewed Test Results Lab Laboratory Tests Test 05/11/19 10:13 05/11/19 10:18 05/11/19 10:20 05/11/19 11:18 Range/Units White Blood Count 14.4 H 4.3-11.0 10^3/uL Red Blood Count 4.02 L 4.35-5.85 10^6/uL Hemoglobin 12.4 L 13.3-17.7 G/DL Hematocrit 38 L 40-54 % Mean Corpuscular Volume 94 80-99 FL Mean Corpuscular Hemoglobin 31 25-34 PG Mean Corpuscular Hemoglobin Concent 33 32-36 G/DL Red Cell Distribution Width 15.0 H 10.0-14.5 % Platelet Count 266 130-400 10^3/uL Mean Platelet Volume 9.1 7.4-10.4 FL Neutrophils (%) (Auto) 91 H 42-75 % Lymphocytes (%) (Auto) 1 L 12-44 % Monocytes (%) (Auto) 7 0-12 % Eosinophils (%) (Auto) 0 0-10 % Basophils (%) (Auto) 0 0-10 % Neutrophils # (Auto) 13.2 H 1.8-7.8 X 10^3 Lymphocytes # (Auto) 0.2 L 1.0-4.0 X 10^3 Monocytes # (Auto) 1.0 0.0-1.0 X 10^3 Eosinophils # (Auto) 0.0 0.0-0.3 10^3/uL Basophils # (Auto) 0.0 0.0-0.1 10^3/uL Neutrophils % (Manual) 87 % Lymphocytes % (Manual) 5 % Monocytes % (Manual) 3 % Eosinophils % (Manual) 0 % Basophils % (Manual) 0 % Band Neutrophils 5 % Anisocytosis SLIGHT Prothrombin Time 15.8 H 12.2-14.7 SEC INR Comment 1.2 0.8-1.4 Activated Partial Thromboplast Time 36 H 24-35 SEC Sodium Level 136 135-145 MMOL/L Potassium Level 4.1 3.6-5.0 MMOL/L Chloride Level 101 98-107 MMOL/L Carbon Dioxide Level 21 21-32 MMOL/L Anion Gap 14 5-14 MMOL/L Blood Urea Nitrogen 24 H 7-18 MG/DL Creatinine 1.08 0.60-1.30 MG/DL Estimat Glomerular Filtration Rate > 60 BUN/Creatinine Ratio 22 Glucose Level 198 H 70-105 MG/DL Calcium Level 9.1 8.5-10.1 MG/DL Corrected Calcium 9.1 8.5-10.1 MG/DL Total Bilirubin 0.6 0.1-1.0 MG/DL Aspartate Amino Transf (AST/SGOT) 15 5-34 U/L Alanine Aminotransferase (ALT/SGPT) 19 0-55 U/L Alkaline Phosphatase 59 40-136 U/L Troponin I < 0.028 <0.028 NG/ML Total Protein 6.9 6.4-8.2 GM/DL Albumin 4.0 3.2-4.5 GM/DL B-Type Natriuretic Peptide 81.8 <100.0 PG/ML Lactic Acid Level 2.95 *H 0.50-2.00 MMOL/L Urine Color YELLOW Urine Clarity SLIGHTLY CLOUDY Urine pH 5 5-9 Urine Specific [place] 1.020 1.016-1.022 Urine Protein NEGATIVE NEGATIVE Urine Glucose (UA) NEGATIVE NEGATIVE Urine Ketones NEGATIVE NEGATIVE Urine Nitrite NEGATIVE NEGATIVE Urine Bilirubin NEGATIVE NEGATIVE Urine Urobilinogen NORMAL NORMAL MG/DL Urine Leukocyte Esterase NEGATIVE NEGATIVE Urine RBC (Auto) NEGATIVE NEGATIVE Urine RBC NONE /HPF Urine WBC NONE /HPF Urine Squamous Epithelial Cells 2-5 /HPF Urine Crystals NONE /LPF Urine Bacteria TRACE /HPF Urine Casts NONE /LPF Urine Mucus SMALL H /LPF Urine Culture Indicated CULTURE PENDING Test 05/11/19 12:45 05/11/19 14:15 Range/Units Lactic Acid Level 2.73 *H 0.50-2.00 MMOL/L Glucometer 127 H 70-110 MG/DL Physical Exam Physical Exam Vital Signs Vital Signs - First Documented 05/11/19 05/11/19 10:05 11:25 Temp 99.6 Pulse 118 Resp 18 B/P (MAP) 132/97 (109) Pulse Ox 95 O2 Delivery Nasal Cannula O2 Flow Rate 2.00 Capillary Refill : Less Than 3 Seconds Height, Weight, BMI Height: 5'11.00" Weight: 249lbs. 2.0oz. 113.337025nw; 34.8 BMI Method:Stated General Appearance: No Apparent Distress, WD/WN, Chronically ill, Obese Eyes: Right Eye Normal Inspection, Right Eye PERRL HEENT: PERRL/EOMI, Normal ENT Inspection, Pharynx Normal, Moist Mucous Membranes Neck: Full Range of Motion, Normal Inspection, Non Tender Respiratory: Chest Non Tender, No Accessory Muscle Use, No Respiratory Distress, Crackles, Decreased Breath Sounds Cardiovascular: Regular Rate, Rhythm, No Edema, No Gallop, No JVD, No Murmur, Normal Peripheral Pulses Gastrointestinal: Normal Bowel Sounds, No Organomegaly, No Pulsatile Mass, Non Tender, Soft Back: Normal Inspection, No CVA Tenderness, No Vertebral Tenderness Extremity: Normal Capillary Refill, Normal Inspection, Normal Range of Motion, Non Tender, No Calf Tenderness, No Pedal Edema Neurologic/Psychiatric: Alert, Oriented x3, No Motor/Sensory Deficits, Normal Mood/Affect Skin: Normal Color, Warm/Dry Lymphatic: No Adenopathy A/P-Cardiology Admission Diagnosis Pneumonia Tachycardia PAF CAD Assessment/Plan Pneumonia - management per medical/pulmonary services Tachycardia- EKG revealed V-paced rhythm in the 120's. Appears to be sinus tachycardia with the pacemaker tracking the atrial rate, I will use IV Lopressor and monitor his tolerance and response. PAF, maintianed on diltiazem and Eliquis as outpatient, restart home medications and continue to monitor. Coronary artery disease with bypass surgery in August 2007, consisting of left internal mammary artery graft to left anterior descending, saphenous vein graft to right coronary, saphenous vein graft to distal left anterior descending, saphenous vein graft to circumflex, and sequential radial artery to first and second obtuse marginal branches, by Dr. Ferguson at [facility]. Cardiac cath of November 04, 2015 showed 90% distal LMCA stenosis and 60- 70% prox RCA stenosis; patent DELA CRUZ to LAD; patent SVG to distal LAD; patent SVG to a diag; patent SVG to an OM of LCx; patent SVG to RCA; chronically occluded aortocoronary graft, presumably to other OMs; LVEF 45-50%; mod elevation of LVEDP Echocardiogram of Dec 2016 showed mild impairment of global LV systolic function with an LVEF of 45%. Distal septal and apical hypokinesis. Mild mitral annular calcification without evidence of significant valvular stenosis. Trivial to mild aortic, mitral and tricuspid regurg. No evidence of significant valvular stenosis. 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 The pulse generator was changed on 03/24/17. EKG reveals V-paced at 100-120bpm, most recent interrogation of January 2019. [employer] rep to interrogate/reprogram PPM this afternoon HTN- H/O chronically somewhat low blood pressure, blood pressure controlled at this time, continue to monitor. Hypothyroidism being treated with thyroid replacement therapy. 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 Liu a few years ago. History of prostate enlargement/cancer, being followed by Dr. White. Carotid arterial disease being followed by Dr. Douglas at [place], [place]. Clinical Quality Measures DVT/VTE Risk/Contraindication: Risk Factor Score Per Nursin RFS Level Per Nursing on Admit: 4+=Very High SOPHY ROME MD May 11, 2019 15:15
[2019-05-11 15:35] VITALS: BP 97/53
[2019-05-11] MEDS: meTOprolol 5 MG/5 ML (LOPRESSOR) VIAL IV SCH (18:25)
[2019-05-11] MEDS: PIPERACILLIN/TAZOBACTAM (BULK) 4.5 GM in NS (IVPB) 100 ML IV SCH (18:26)
[2019-05-11 18:28] VITALS: BP 102/62
[2019-05-11 20:00] VITALS: BP 106/63
[2019-05-11] MEDS: RT-ALBUTEROL/IPRATROPIUM 3 ML (DUONEB) VIAL INH SCH (20:58)
[2019-05-11] MEDS ORDERED: SIMvastatin 20 MG (ZOCOR) TAB PO SCH (21:00)
[2019-05-11] MEDS: ATORVASTATIN 10 MG (LIPITOR) TABLET PO SCH (21:48)
[2019-05-11] MEDS: APIXABAN 5 MG (ELIQUIS) TABLET PO SCH (21:48)
[2019-05-12] VITALS: BP 114/62
[2019-05-12] MEDS: meTOprolol 5 MG/5 ML (LOPRESSOR) VIAL IV SCH ×2 (02:01→05:00)
[2019-05-12] MEDS: RT-ALBUTEROL/IPRATROPIUM 3 ML (DUONEB) VIAL INH SCH ×4 (03:23→20:32)
[2019-05-12 04:00] VITALS: BP 112/58
[2019-05-12] MEDS: PIPERACILLIN/TAZOBACTAM (BULK) 4.5 GM in NS (IVPB) 100 ML IV SCH ×3 (04:04→17:20)
[2019-05-12] MEDS: NS IV 1000 ML 1,000 ML IV SCH (04:04)
[2019-05-12 06:45] LABS: BASOPHILS % (AUTO) 0 % (0-10); EOSINOPHILS # (AUTO) 0.2 10^3/uL (0.0-0.3); EOSINOPHILS % (AUTO) 2 % (0-10); HEMATOCRIT 31 % (40-54); HEMOGLOBIN 10.1 G/DL (13.3-17.7); LYMPHOCYTES # (AUTO) 0.4 X 10^3 (1.0-4.0); LYMPHOCYTES % (AUTO) 4 % (12-44); MEAN CORPUSCULAR HEMOGLOBIN 31 PG (25-34); MEAN CORPUSCULAR HGB CONC 32 G/DL (32-36); MEAN CORPUSCULAR VOLUME 96 FL (80-99); MEAN PLATELET VOLUME 9.2 FL (7.4-10.4); MONOCYTES % (AUTO) 8 % (0-12); NEUTROPHILS # (AUTO) 9.8 X 10^3 (1.8-7.8); NEUTROPHILS % (AUTO) 86 % (42-75); PLATELET COUNT 209 10^3/uL (130-400); WHITE BLOOD COUNT 11.4 10^3/uL (4.3-11.0)
[2019-05-12 07:14] LABS: ALANINE AMINOTRANSFERASE 15 U/L (0-55); ALBUMIN 3.2 GM/DL (3.2-4.5); ALKALINE PHOSPHATASE 48 U/L (40-136); BILIRUBIN,TOTAL 0.6 MG/DL (0.1-1.0); BUN/CREATININE RATIO 19; CALCIUM 8.1 MG/DL (8.5-10.1); CARBON DIOXIDE 24 MMOL/L (21-32); CHLORIDE 107 MMOL/L (98-107); CREATININE SERUM 0.94 MG/DL (0.60-1.30); GFR ESTIMATED > 60; GLUCOSE 116 MG/DL (70-105); MAGNESIUM 1.5 MG/DL (1.8-2.4); PHOSPHORUS 3.1 MG/DL (2.3-4.7); POTASSIUM 3.9 MMOL/L (3.6-5.0); SODIUM 139 MMOL/L (135-145); TOTAL PROTEIN 5.4 GM/DL (6.4-8.2)
[2019-05-12] MEDS: inSUlin ASPART (NovoLOG) 1 UNIT/0.01 ML (CHARGE PER UNIT) SC SCH ×4 (07:22→19:06)
[2019-05-12 08:00] VITALS: BP 115/66
--- NOTE | 2019-05-12 08:26 | Cardiology Progress Note ---
Subjective Date Seen by Provider: May 12, 2019 Time Seen by Provider: 08:24 Subjective/Events-last exam patient is sitting in a chair, feeling better, breathing better. No new complaint, heart rate is better Review of Systems General: No Chills, No Night Sweats, No Fatigue, No Malaise, No Appetite, No Other HEENT: No Head Aches, No Visual Changes, No Eye Pain, No Ear Pain, No Dysphasia, No Sinus Congestion, No Post Nasal Drip, No Sore Throat, No Other Pulmonary: No Dyspnea, No Cough, No Pleuritic Chest Pain, No Other Cardiovascular: No: Chest Pain, Palpitations, Orthopnea, Paroxysmal Noc. Dyspnea, Edema, Lt Headedness, Other Focused Exam Lactate Level 05/11/19 10:20: Lactic Acid Level 2.95*H 05/11/19 12:45: Lactic Acid Level 2.73*H Objective-Cardiology Exam Last Set of Vital Signs Vital Signs 05/12/19 05/12/19 04:00 07:00 Temp 98.0 Pulse 87 Resp 18 B/P (MAP) 112/58 (76) Pulse Ox 97 O2 Delivery Nasal Cannula O2 Flow Rate 2.00 Capillary Refill : Less Than 3 SecondsLess Than 3 Seconds I&O Intake and Output 05/12/19 00:00 Intake Total 1090 ml Output Total 0 ml Balance 1090 ml Intake Oral 540 ml IV Total 550 ml Output Urine Total 0 ml # Voids 2 Daily Weight Change No No General: Alert, Oriented X3, Cooperative HEENT: Atraumatic, PERRLA Neck: Supple, No JVD, No Thyromegaly Lungs: Clear to Auscultation, Normal Air Movement Heart: Regular Rate, Normal S1, Normal S2, Other (systolic murmur at the left sternal border) Abdomen: Normal Bowel Sounds, Soft, No Tenderness, No Hepatosplenomegaly, No Masses Extremities: No Clubbing, No Cyanosis, No Edema, Normal Pulses, No Tenderness/Swelling Skin: No Rashes, No Breakdown, No Significant Lesion Neuro: Normal Gait, Normal Speech, Strength at 5/5 X4 Ext, Normal Tone, Sensation Intact Psych/Mental Status: Mental Status NL, Mood NL Results Lab Laboratory Tests 05/11/19 10:13 05/12/19 06:16 A/P-Cardiology Admission Diagnosis Pneumonia Tachycardia PAF CAD Assessment/Plan Pneumonia - management per medical/pulmonary services Tachycardia, sinus tachycardia with pacemaker sensing and tracking the atrium, currently heart rate is 85, patient is doing better. Continue to monitor Paroxysmal atrial fibrillation, currently in sinus rhythm, has been maintained on Eliquis. Restart and continue to monitor Coronary artery disease with bypass surgery in August 2007, consisting of left internal mammary artery graft to left anterior descending, saphenous vein graft to right coronary, saphenous vein graft to distal left anterior descending, saphenous vein graft to circumflex, and sequential radial artery to first and second obtuse marginal branches, by Dr. Ferguson at [facility]. Cardiac cath of November 04, 2015 showed 90% distal LMCA stenosis and 60- 70% prox RCA stenosis; patent DELA CRUZ to LAD; patent SVG to distal LAD; patent SVG to a diag; patent SVG to an OM of LCx; patent SVG to RCA; chronically occluded aortocoronary graft, presumably to other OMs; LVEF 45-50%; mod elevation of LV EDP Echocardiogram of Dec 2016 showed mild impairment of global LV systolic function with an LVEF of 45%. Distal septal and apical hypokinesis. Mild mitral annular calcification without evidence of significant valvular stenosis. Trivial to mild aortic, mitral and tricuspid regurg. No evidence of significant valvular stenosis. 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 The pulse generator was changed on 03/24/17. EKG reveals V-paced at 100-120bpm, most recent interrogation of January 2019. Me [employer] rep to interrogate/reprogram PPM this afternoon HTN- H/O chronically somewhat low blood pressure, blood pressure controlled at this time, continue to monitor. Hypothyroidism being treated with thyroid replacement therapy. 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 Liu a few years ago. History of prostate enlargement/cancer, being followed by Dr. White. Carotid arterial disease being followed by Dr. Douglas at [place], [place]. Clinical Quality Measures DVT/VTE Risk/Contraindication: Risk Factor Score Per Nursin RFS Level Per Nursing on Admit: 4+=Very High SOPHY ROME MD May 12, 2019 08:26
[2019-05-12] MEDS: DILTIAZEM 240 MG (CARDIZEM CD) CAP PO SCH (08:40)
[2019-05-12] MEDS: FUROSEMIDE 40 MG (LASIX) TAB PO SCH (08:40)
[2019-05-12] MEDS: LOSARTAN 50 MG (COZAAR) TAB PO SCH (08:40)
[2019-05-12] MEDS: APIXABAN 5 MG (ELIQUIS) TABLET PO SCH ×2 (08:40→20:49)
[2019-05-12] MEDS ORDERED: meTOprolol 5 MG/5 ML (LOPRESSOR) VIAL IV PRN (09:00)
[2019-05-12] MEDS ORDERED: NON-FORMULARY MEDICATION 1 EA EA (Irbesartan 150 MG) PO SCH (09:00)
[2019-05-12] MEDS ORDERED: NON-FORMULARY MEDICATION 1 EA EA (Diltiazem HCl (Diltiazem 24Hr ER) 240 MG) PO SCH (09:00)
[2019-05-12 12:00] VITALS: BP 116/71
[2019-05-12 16:00] VITALS: BP 119/71
--- NOTE | 2019-05-12 16:27 | NUR ---
Patients O2 sat was at 97% on 1 L so RT removed O2 at this time; patient is doing good on RA
--- NOTE | 2019-05-12 16:48 | Pulmonary Progress Note ---
Subjective Time Seen by a Provider: 12:49 Subjective/Events-last exam pt is doing better/. Sepsis Event Evaluation Height, Weight, BMI Height: 5'." Weight: 249lbs. 2.0oz. 113.839804dy; 34.8 BMI Method:Stated Focused Exam Lactate Level 05/11/19 10:20: Lactic Acid Level 2.95*H 05/11/19 12:45: Lactic Acid Level 2.73*H Exam Exam Vital Signs Date Time Temp Pulse Resp B/P (MAP) Pulse Ox O2 Delivery O2 Flow Rate FiO2 05/12/19 16:24 97 Room Air 1.00 05/12/19 16:00 97.9 70 20 119/71 (87) 98 Nasal Cannula 1.00 05/12/19 12:00 97.4 76 20 116/71 (86) 98 Nasal Cannula 2.00 05/12/19 09:05 98 Nasal Cannula 2.00 05/12/19 08:30 Nasal Cannula 2.00 05/12/19 08:00 97.8 84 20 115/66 (82) 99 Nasal Cannula 2.00 05/12/19 07:00 87 05/12/19 04:00 98.0 66 18 112/58 (76) 97 Nasal Cannula 2.00 05/12/19 03:25 95 Nasal Cannula 2.00 05/12/19 01:00 74 05/12/19 00:00 98.4 79 20 114/62 (79) 98 Nasal Cannula 2.00 05/11/19 20:58 95 Nasal Cannula 2.00 05/11/19 20:00 Nasal Cannula 2.00 05/11/19 20:00 98.0 86 20 106/63 (77) 98 Nasal Cannula 2.00 05/11/19 19:15 101 05/11/19 18:28 91 102/62 (75) 96 Nasal Cannula 2.00 05/11/19 17:09 98 I & O 05/12/19 07:00 Intake Total 1190 ml Output Total 0 ml Balance 1190 ml Height & Weight Height: 5'11.00" Weight: 249lbs. 2.0oz. 113.165530de; 34.8 BMI Method:Stated General Appearance: No Apparent Distress, WD/WN, Chronically ill, Obese HEENT: PERRL/EOMI, Normal ENT Inspection, Pharynx Normal, Moist Mucous Membranes Neck: Full Range of Motion, Normal Inspection, Non Tender Respiratory: Chest Non Tender, No Accessory Muscle Use, No Respiratory Distress, Crackles, Decreased Breath Sounds Cardiovascular: Regular Rate, Rhythm, No Edema, No Gallop, No JVD, No Murmur, Normal Peripheral Pulses Capillary Refill: Less Than 3 Seconds Gastrointestinal: non tender, soft Extremity: Normal Capillary Refill, Normal Inspection, Normal Range of Motion, Non Tender, No Calf Tenderness, No Pedal Edema Neurologic/Psychiatric: Alert, Oriented x3, No Motor/Sensory Deficits, Normal Mood/Affect Skin: Normal Color, Warm/Dry Lymphatic: No Adenopathy Results Lab Laboratory Tests 05/11/19 10:13 05/12/19 06:16 Assessment/Plan Assessment/Plan RLL PNA with sepsis -sandoval cultures -Check MRSA swab COPDAE -SVNS -Steroids Metabolic lactic acidosis -IVF -Monitor CAD with PVD Afib hx Hypothyroid CHF GAGANDEEP VALLEJO DO May 12, 2019 16:48
--- NOTE | 2019-05-12 17:39 | Progress Note-Hospitalist ---
Subjective HPI/CC On Admission Date Seen by Provider: May 12, 2019 Time Seen by Provider: 08:30 CC: Shortness of breath with fever HPI: This is an 88yoWM clinic pt of Dr. Cuellar that I know from prior pneumonia episodes and exacerbation of COPD who also sees Dr. Dixon for pacemaker management and Dr. Subramanian for GIOVANNI who presented to the ER with fever and SOB found to have right lower lobe pneumonia. Pt does not ordinarily use oxygen only when hes got a respiratory illness in the hospital. Dr. De La Torre has been consulted will interrogate his pacemaker and gentle IV fluids for the elevated lactic acid will be initiated but careful to prevent volume overload due to CHF history atrial fibrillation and his elevated lactic acid increased actually from initial so we will monitor that closely. Pt was placed on antibiotic treatment and will be closely followed. Focused Exam Lactate Level 05/11/19 10:20: Lactic Acid Level 2.95*H 05/11/19 12:45: Lactic Acid Level 2.73*H Objective Exam Vital Signs Vital Signs Date Time Temp Pulse Resp B/P (MAP) Pulse Ox O2 Delivery O2 Flow Rate FiO2 05/12/19 16:24 97 Room Air 1.00 05/12/19 16:00 97.9 70 20 119/71 (87) Capillary Refill : Less Than 3 SecondsLess Than 3 Seconds General Appearance: No Apparent Distress, WD/WN, Chronically ill, Obese HEENT: PERRL/EOMI, Normal ENT Inspection, Pharynx Normal, Moist Mucous Membranes Neck: Full Range of Motion, Normal Inspection, Non Tender Respiratory: Chest Non Tender, No Accessory Muscle Use, No Respiratory Distress, Crackles, Decreased Breath Sounds Cardiovascular: Regular Rate, Rhythm, No Edema, No Gallop, No JVD, No Murmur, Normal Peripheral Pulses Gastrointestinal: Normal Bowel Sounds, No Organomegaly, No Pulsatile Mass, Non Tender, Soft Back: Normal Inspection, No CVA Tenderness, No Vertebral Tenderness Extremity: Normal Capillary Refill, Normal Inspection, Normal Range of Motion, Non Tender, No Calf Tenderness, No Pedal Edema Neurologic/Psychiatric: Alert, Oriented x3, No Motor/Sensory Deficits, Normal Mood/Affect Skin: Normal Color, Warm/Dry Lymphatic: No Adenopathy Results/Procedures Lab Laboratory Tests 05/12/19 06:16 Patient resulted labs reviewed. Clinical Quality Measures DVT/VTE Risk/Contraindication: Risk Factor Score Per Nursin RFS Level Per Nursing on Admit: 4+=Very High DAVID CUELLAR MD May 12, 2019 17:39
[2019-05-12 20:00] VITALS: BP 106/55
[2019-05-12] MEDS: ATORVASTATIN 10 MG (LIPITOR) TABLET PO SCH (20:49)
[2019-05-13 00:55] VITALS: BP 107/54
[2019-05-13] MEDS: PIPERACILLIN/TAZOBACTAM (BULK) 4.5 GM in NS (IVPB) 100 ML IV SCH ×2 (01:04→09:50)
[2019-05-13] MEDS: RT-ALBUTEROL/IPRATROPIUM 3 ML (DUONEB) VIAL INH SCH ×2 (02:04→09:00)
[2019-05-13 05:00] VITALS: BP 113/60
[2019-05-13] MEDS: inSUlin ASPART (NovoLOG) 1 UNIT/0.01 ML (CHARGE PER UNIT) SC SCH ×3 (06:33→14:25)
--- NOTE | 2019-05-13 07:28 | Cardiology Progress Note ---
Subjective Date Seen by Provider: May 13, 2019 Time Seen by Provider: 07:27 Subjective/Events-last exam patient is sitting in a chair, feeling better, breathing better. Review of Systems General: No Chills, No Night Sweats, No Fatigue, No Malaise, No Appetite, No Other HEENT: No Head Aches, No Visual Changes, No Eye Pain, No Ear Pain, No Dysphasia, No Sinus Congestion, No Post Nasal Drip, No Sore Throat, No Other Pulmonary: No Dyspnea, No Cough, No Pleuritic Chest Pain, No Other Cardiovascular: No: Chest Pain, Palpitations, Orthopnea, Paroxysmal Noc. Dyspnea, Edema, Lt Headedness, Other Focused Exam Lactate Level 05/11/19 10:20: Lactic Acid Level 2.95*H 05/11/19 12:45: Lactic Acid Level 2.73*H Objective-Cardiology Exam Last Set of Vital Signs Vital Signs 05/12/19 05/13/19 16:24 05:00 Temp 98.7 Pulse 83 Resp 18 B/P (MAP) 113/60 (77) Pulse Ox 95 O2 Delivery Room Air O2 Flow Rate 1.00 Capillary Refill : Less Than 3 SecondsLess Than 3 Seconds I&O Intake and Output 05/13/19 00:00 Intake Total 2900 ml Balance 2900 ml Intake Oral 2630 ml IV Total 270 ml # Voids 8 General: Alert, Oriented X3, Cooperative HEENT: Atraumatic, PERRLA Neck: Supple, No JVD, No Thyromegaly Lungs: Clear to Auscultation, Normal Air Movement Heart: Regular Rate, Normal S1, Normal S2, Other (systolic murmur at the left sternal border) Abdomen: Normal Bowel Sounds, Soft, No Tenderness, No Hepatosplenomegaly, No Masses Extremities: No Clubbing, No Cyanosis, No Edema, Normal Pulses, No Tenderness/Swelling Skin: No Rashes, No Breakdown, No Significant Lesion Neuro: Normal Gait, Normal Speech, Strength at 5/5 X4 Ext, Normal Tone, Sensation Intact Psych/Mental Status: Mental Status NL, Mood NL A/P-Cardiology Admission Diagnosis Pneumonia Tachycardia PAF CAD Assessment/Plan Pneumonia - management per medical/pulmonary services Sinus tachycardia with pacemaker sensing and tracking the atrium, currently heart rate is 85, patient is doing better. Continue to monitor Paroxysmal atrial fibrillation, currently in sinus rhythm, has been maintained on Eliquis. Restart and continue to monitor Coronary artery disease with bypass surgery in August 2007, consisting of left internal mammary artery graft to left anterior descending, saphenous vein graft to right coronary, saphenous vein graft to distal left anterior descending, saphenous vein graft to circumflex, and sequential radial artery to first and second obtuse marginal branches, by Dr. Ferguson at [facility]. Cardiac cath of November 04, 2015 showed 90% distal LMCA stenosis and 60- 70% prox RCA stenosis; patent DELA CRUZ to LAD; patent SVG to distal LAD; patent SVG to a diag; patent SVG to an OM of LCx; patent SVG to RCA; chronically occluded aortocoronary graft, presumably to other OMs; LVEF 45-50%; mod elevation of LVEDP Echocardiogram of Dec 2016 showed mild impairment of global LV systolic function with an LVEF of 45%. Distal septal and apical hypokinesis. Mild mitral annular calcification without evidence of significant valvular stenosis. Trivial to mild aortic, mitral and tricuspid regurg. No evidence of significant valvular stenosis. 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 The pulse generator was changed on 03/24/17. EKG reveals V-paced at 100-120bpm, most recent interrogation of January 2019. [employer] rep to interrogate/reprogram PPM this afternoon HTN- H/O chronically somewhat low blood pressure, blood pressure controlled at this time, continue to monitor. Hypothyroidism being treated with thyroid replacement therapy. 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 Liu a few years ago. History of prostate enlargement/cancer, being followed by Dr. White. Carotid arterial disease being followed by Dr. Douglas at [place], [place]. Clinical Quality Measures DVT/VTE Risk/Contraindication: Risk Factor Score Per Nursin RFS Level Per Nursing on Admit: 4+=Very High SOPHY ROME MD May 13, 2019 07:28
--- NOTE | 2019-05-13 07:36 | Pulmonary Progress Note ---
Subjective Time Seen by a Provider: 12:51 Subjective/Events-last exam Pt appears to be doing better. Sepsis Event Evaluation Height, Weight, BMI Height: 5'11.00" Weight: 249lbs. 2.0oz. 113.409998we; 34.8 BMI Method:Stated Focused Exam Lactate Level 05/11/19 10:20: Lactic Acid Level 2.95*H 05/11/19 12:45: Lactic Acid Level 2.73*H Exam Exam Vital Signs Date Time Temp Pulse Resp B/P (MAP) Pulse Ox O2 Delivery O2 Flow Rate FiO2 05/13/19 07:00 87 05/13/19 05:00 98.7 83 18 113/60 (77) 95 Room Air 05/13/19 02:04 92 Room Air 05/13/19 01:00 81 05/13/19 00:55 98.2 81 18 107/54 (71) 95 Room Air 05/12/19 20:32 93 Room Air 05/12/19 20:00 98.1 73 20 106/55 (72) 96 Room Air 05/12/19 20:00 Room Air 05/12/19 19:00 73 05/12/19 16:24 97 Room Air 1.00 05/12/19 16:00 97.9 70 20 119/71 (87) 98 Nasal Cannula 1.00 05/12/19 12:00 97.4 76 20 116/71 (86) 98 Nasal Cannula 2.00 05/12/19 09:05 98 Nasal Cannula 2.00 05/12/19 08:30 Nasal Cannula 2.00 05/12/19 08:00 97.8 84 20 115/66 (82) 99 Nasal Cannula 2.00 I & O 05/13/19 07:00 Intake Total 3120 ml Balance 3120 ml Height & Weight Height: 5'11.00" Weight: 249lbs. 2.0oz. 113.856775pz; 34.8 BMI Method:Stated General Appearance: No Apparent Distress, WD/WN, Chronically ill, Obese HEENT: PERRL/EOMI, Normal ENT Inspection, Pharynx Normal, Moist Mucous Membranes Neck: Full Range of Motion, Normal Inspection, Non Tender Respiratory: Chest Non Tender, No Accessory Muscle Use, No Respiratory Distress, Crackles, Decreased Breath Sounds Cardiovascular: Regular Rate, Rhythm, No Edema, No Gallop, No JVD, No Murmur, Normal Peripheral Pulses Capillary Refill: Less Than 3 Seconds Gastrointestinal: non tender, soft Extremity: Normal Capillary Refill, Normal Inspection, Normal Range of Motion, Non Tender, No Calf Tenderness, No Pedal Edema Neurologic/Psychiatric: Alert, Oriented x3, No Motor/Sensory Deficits, Normal Mood/Affect Skin: Normal Color, Warm/Dry Lymphatic: No Adenopathy Results Lab Laboratory Tests 05/11/19 10:13 05/12/19 06:16 Assessment/Plan Assessment/Plan RLL PNA with sepsis -sandoval cultures -continue Zosyn -Repeat CXR COPDAE- improving -SVNS CAD with PVD Afib hx Hypothyroid CHF GAGANDEEP VALLEJO DO May 13, 2019 07:35
[2019-05-13 08:00] VITALS: BP 132/62
[2019-05-13 08:05] LABS: BUN/CREATININE RATIO 19; CALCIUM 8.6 MG/DL (8.5-10.1); CARBON DIOXIDE 20 MMOL/L (21-32); CHLORIDE 105 MMOL/L (98-107); CREATININE SERUM 0.86 MG/DL (0.60-1.30); GFR ESTIMATED > 60; GLUCOSE 181 MG/DL (70-105); MAGNESIUM 1.3 MG/DL (1.8-2.4); SODIUM 133 MMOL/L (135-145)
--- NOTE | 2019-05-13 08:48 | NUR ---
PRIOR TO A.M. MEDICATIONS PULSE WAS 85 AND B/P WAS 132/62
[2019-05-13] MEDS: LOSARTAN 50 MG (COZAAR) TAB PO SCH (08:49)
[2019-05-13] MEDS: MAGNESIUM 1 GM/100 ML IVPB 100 ML IV SCH ×2 (08:49→08:50)
[2019-05-13] MEDS: DILTIAZEM 240 MG (CARDIZEM CD) CAP PO SCH (08:49)
[2019-05-13] MEDS: FUROSEMIDE 40 MG (LASIX) TAB PO SCH (08:49)
[2019-05-13] MEDS: APIXABAN 5 MG (ELIQUIS) TABLET PO SCH (08:49)
--- NOTE | 2019-05-13 09:53 | Diagnostic Imaging Report ---
PA and lateral chest at 926 hours. INDICATION: Respiratory distress. FINDINGS: The appearance of the chest has worsened since the prior exam of 05/11/2019 as the density in the right lung base has increased. This does suggest that there is greater involvement of the right lower lobe by pneumonia/atelectasis. The left lung remains relatively clear. There is still some atelectasis/infiltrate and fluid in the left lung base. The heart is stable in size. The sternal wires and surgical clips and left-sided pacemaker seen previously are again evident and no different. The mediastinum is not widened. The osseous structures are intact. IMPRESSION: The appearance of the chest has worsened somewhat since the prior exam as there does appear to be greater involvement of the right lower lobe by pneumonia/atelectasis. A followup study would be recommended for further evaluation. Dictated by: Dictated on workstation # [id number]
[2019-05-13 12:00] VITALS: BP 151/81
[2019-05-13] MEDS ORDERED: CEFD300C3 PO (13:47)
[2019-05-13 14:40] VITALS: BP 151/81
--- NOTE | 2019-05-13 17:22 | Discharge Summary-Hospitalist ---
Diagnosis/Chief Complaint Date of Admission May 11, 2019 at 11:43 Date of Discharge May 13, 2019 at 14:40 Discharge Date: May 13, 2019 Admission Diagnosis Assessment: Sepsis RLL pneumonia COPD Pacemaker CAD Hypoxia AF DM CAD GERD Hypertension Hyperlipidemia History of prostate cancer Plan: Flako Subramanian and Britt are both appreciated Monitor labs O2 Nebs Abx Discharge Diagnosis (1) Right lower lobe pneumonia Status: Acute (2) Tachycardia Status: Acute (3) CAD (coronary artery disease) Status: Chronic (4) Atrial fibrillation Status: Chronic (5) Anticoagulant prescribed Status: Chronic (6) Hypertension Status: Chronic (7) GERD (gastroesophageal reflux disease) Status: Chronic (8) PVD (peripheral vascular disease) Status: Chronic (9) Hypothyroidism Status: Chronic (10) Hyperlipemia Status: Chronic (11) COPD (chronic obstructive pulmonary disease) Status: Chronic (12) Weakness Status: Chronic (13) CHF (congestive heart failure) Status: Chronic (14) Depression Status: Chronic (15) Acute renal insufficiency Status: Acute (16) Leukocytosis Status: Acute (17) Anemia Status: Chronic (18) Lactic acid acidosis Status: Acute Discharge Summary Discharge Physical Exam Allergies: Coded Allergies: No Known Drug Allergies (Verified , 07/15/18) Vitals & I&Os Vital Signs Date Time Temp Pulse Resp B/P (MAP) Pulse Ox O2 Delivery O2 Flow Rate FiO2 05/13/19 14:40 72 18 151/81 99 Room Air 05/13/19 12:00 97.3 05/13/19 08:00 1.00 General Appearance: No Apparent Distress, Obese Respiratory: Chest Non Tender, No Accessory Muscle Use, No Respiratory Distress, Other (Few fine rales in the right base without wheezing or rhonchi) Cardiovascular: Regular Rate, Rhythm, No Edema, No Gallop, No JVD, No Murmur, Normal Peripheral Pulses Gastrointestinal: Normal Bowel Sounds, No Organomegaly, No Pulsatile Mass, Non Tender, Soft Extremity: Normal Capillary Refill, Normal Inspection, Normal Range of Motion, Non Tender, No Calf Tenderness Hospital Course Was the Problem List Reviewed?: Yes HPI: This is an 88yoWM clinic pt of Dr. Cuellar that I know from prior pneumonia episodes and exacerbation of COPD who also sees Dr. Dixon for pacemaker management and Dr. Subramanian for GIOVANNI who presented to the ER with fever and SOB found to have right lower lobe pneumonia. Pt does not ordinarily use oxygen only when hes got a respiratory illness in the hospital. Dr. De La Torre has been consulted will interrogate his pacemaker and gentle IV fluids for the elevated lactic acid will be initiated but careful to prevent volume overload due to CHF history atrial fibrillation and his elevated lactic acid increased actually from initial so we will monitor that closely. Pt was placed on antibiotic treatment and will be closely followed. Patient was started on Zosyn with no subsequent chills or Reiger's. He had minimal sputum production. Follow-up chest x-ray revealed little progression of right lower lobe and right middle lobe infiltrates but the patient actually felt well and was ambulatory without shortness of breath room air oxygen saturations were 94 percent or higher with stable vital signs. For this reason he is being discharged on Omnicef 300 mg twice a day to take for another 5 days and I will see him back in 1-2 weeks. We will need to obtain follow-up chest x-ray in several weeks to document clearing he does have a past smoking history so if chest x-ray is not documented to be back to baseline we'll have him see Dr. Subramanian for follow-up and consideration for further diagnostic testing. Labs (last 24 hrs) Laboratory Tests 05/12/19 18:51: Glucometer 207H 05/13/19 06:31: Glucometer 147H 05/13/19 07:31: Sodium Level 133L, Potassium Level 4.0, Chloride Level 105, Carbon Dioxide Level 20L, Anion Gap 8, Blood Urea Nitrogen 16, Creatinine 0.86, Estimat Glomerular Filtration Rate > 60, BUN/Creatinine Ratio 19, Glucose Level 181H, Calcium Level 8.6, Phosphorus Level 2.7, Magnesium Level 1.3L 05/13/19 09:52: Glucometer 256H 05/13/19 14:20: Glucometer 282H Microbiology 05/11/19 Blood Culture - Preliminary, Resulted No growth 05/11/19 Urine Culture - Final, Complete 3 or more isolates Patient resulted labs reviewed. Pending Labs Laboratory Tests 05/13/19 09:52: Glucometer 256 05/13/19 14:20: Glucometer 282 Discussion & Recommendations Discharge Planning: >30 minutes discharge planning Discharge Home Medications: Active Scripts Active Cefdinir 300 Mg Capsule 300 Mg PO BID 5 Days Reported Trelegy Ellipta 100-62.5-25 (Fluticasone/Umeclidin/Vilanter) 1 Each Blst.w.dev 1 Puff INH DAILY Glimepiride 4 Mg Tablet 4 Mg PO DAILY Vitamin B-12 (Cyanocobalamin (Vitamin B-12)) 2,500 Mcg Tab.subl 2,500 Mcg SL DAILY Magnesium (Magnesium Oxide) 500 Mg Capsule 500 Mg PO DAILY Ventolin Hfa (Albuterol Sulfate) 18 Gm Hfa.aer.ad 2 Puff INH Q4H PRN Potassium Chloride 10 Meq Tablet.er 10 Meq PO MOTUWETHFRSA DOES NOT TAKE ON SUNDAYS Eliquis (Apixaban) 5 Mg Tablet 5 Mg PO BID Irbesartan 150 Mg Tablet 150 Mg PO DAILY Diltiazem 24Hr ER (Diltiazem HCl) 240 Mg Cap.er.24h 240 Mg PO DAILY Tizanidine HCl 2 Mg Tablet 2 Mg PO HS Aspirin EC (Aspirin) 81 Mg Tablet.dr 81 Mg PO DAILY Omeprazole 20 Mg Capsule.dr 20 Mg PO DAILY Levothyroxine Sodium 100 Mcg Tablet 100 Mcg PO DAILY Preservision Areds 2 Softgel (Vit C/E/Zn/Coppr/Lutein/Zeaxan) 1 Each Capsule 1 Cap PO BID Fish Oil 1,000 mg Softgel ([place]-3/Dha/Epa/Fish Oil) 1 Each Capsule 1,000 Mg PO DAILY Furosemide 40 Mg Tablet 40 Mg PO MOTUWETHFRSA DOES NOT TAKE ON SUNDAYS Vitamin D-3 (Cholecalciferol (Vitamin D3)) 2,000 Unit Tablet 2,000 Unit PO DAILY Metformin HCl 500 Mg Tablet 1,000 Mg PO BID TAKES 2 (500MG) TABLETS Systane 0.3-0.4% Eye Drops (Propylene Glycol/Peg 400) 15 Ml Drops 1 Drop OU BID PRN Simvastatin 20 Mg Tablet 20 Mg PO HS Instructions to patient/family Please see electronic discharge instructions given to patient. Clinical Quality Measures DVT/VTE Risk/Contraindication: Risk Factor Score Per Nursin RFS Level Per Nursing on Admit: 4+=Very High Other: SEE INTERVENTIONS Copy Copies To 1: DAVID CUELLAR MD Problem Qualifiers (1) Right lower lobe pneumonia: Pneumonia type: due to unspecified organism Qualified Codes: J18.1 - Lobar pneumonia, unspecified organism (2) CAD (coronary artery disease): Coronary Disease-Associated Artery/Lesion type: [place] artery [place] vs. transplanted heart: [place] heart Associated angina: without angina Qualified Codes: I25.10 - Atherosclerotic heart disease of [place] coronary artery without angina pectoris (3) Atrial fibrillation: Atrial fibrillation type: chronic Qualified Codes: I48.2 - Chronic atrial fibrillation (4) Hypertension: Hypertension type: essential hypertension Qualified Codes: I10 - Essential (primary) hypertension (5) GERD (gastroesophageal reflux disease): Esophagitis presence: without esophagitis Qualified Codes: K21.9 - Gastro- esophageal reflux disease without esophagitis (6) Hypothyroidism: Hypothyroidism type: acquired Qualified Codes: E03.9 - Hypothyroidism, unspecified (7) Hyperlipemia: Hyperlipidemia type: mixed hyperlipidemia Qualified Codes: E78.2 - Mixed hyperlipidemia (8) COPD (chronic obstructive pulmonary disease): COPD type: unspecified COPD Qualified Codes: J44.9 - Chronic obstructive pulmonary disease, unspecified (9) CHF (congestive heart failure): Heart failure type: unspecified Heart failure chronicity: unspecified Qualified Codes: I50.9 - Heart failure, unspecified (10) Depression: Depression Type: unspecified Qualified Codes: F32.9 - Major depressive disorder, single episode, unspecified (11) Leukocytosis: Leukocytosis type: leukemoid reaction Qualified Codes: D72.823 - Leukemoid reaction (12) Anemia: Anemia type: unspecified type Qualified Codes: D64.9 - Anemia, unspecified DAVID CUELLAR MD May 13, 2019 17:22
== END 2019-05-13 14:40 | disposition home or self-care (01) | DRG 871 ==
LOC: EDUNIT# 10:05 → ER 10:08 → 4TH 11:43
PROVIDERS: ADMIT Internal Medicine; ATTEND Internal Medicine
DX: A41.9 Sepsis, unspecified organism (principal); J18.1 Lobar pneumonia, unspecified organism; J44.1 Chronic obstructive pulmonary disease with (acute) exacerbation; J44.0 Chronic obstructive pulmonary disease with (acute) lower respiratory infection; E87.2 Acidosis; I11.0 Hypertensive heart disease with heart failure; I50.9 Heart failure, unspecified; I48.0 Paroxysmal atrial fibrillation; I25.10 Atherosclerotic heart disease of native coronary artery without angina pectoris; I49.5 Sick sinus syndrome; E78.00 Pure hypercholesterolemia, unspecified; K59.09 Other constipation; E03.9 Hypothyroidism, unspecified; E11.51 Type 2 diabetes mellitus with diabetic peripheral angiopathy without gangrene; F41.9 Anxiety disorder, unspecified; F32.9 Major depressive disorder, single episode, unspecified; K21.9 Gastro-esophageal reflux disease without esophagitis; I73.9 Peripheral vascular disease, unspecified; G47.33 Obstructive sleep apnea (adult) (pediatric); I25.2 Old myocardial infarction; Z95.0 Presence of cardiac pacemaker; Z85.46 Personal history of malignant neoplasm of prostate; Z87.891 Personal history of nicotine dependence; Z95.1 Presence of aortocoronary bypass graft; Z95.5 Presence of coronary angioplasty implant and graft; Z92.3 Personal history of irradiation
CPT/HCPCS: 36415; 71045; 71046; 80048; 80053; 81000; 82962; 83605; 83735; 83880; 84100; 84484; 85007; 85025; 85027; 85610; 85730; 87040; 87088; 93005; 94640; 94760; 96361; 96365

== ENCOUNTER → 2019-05-30 | Outpatient (CLI) | payer MEDICARE, MEDICAID ==
--- NOTE | 2019-04-22 09:38 | NUR ---
patient was walked for 6 min.lowest sat seen was 95% during the walk. patient rested after 6 min. sat came up to 98% Addendum: 04/22/19 at 0943 by BALA PHILLIPS RT Amended: Links added.
[~2019-05-30] MED LIST changes: +FLUT1BLS3 INH; +GLIM4TAB PO; +RT-ALBUTEROL SULF 2.5 MG/3 ML PRE-MIX VIAL INH ONE; +RT-ALBUTEROL SULF 2.5 MG/3 ML PRE-MIX VIAL ONE
== END ==
LOC: RT 15:45
PROVIDERS: ATTEND Nurse Practitioner Family
DX: J44.9 Chronic obstructive pulmonary disease, unspecified (principal); J30.9 Allergic rhinitis, unspecified; R91.8 Other nonspecific abnormal finding of lung field; I25.5 Ischemic cardiomyopathy; I48.0 Paroxysmal atrial fibrillation; G47.30 Sleep apnea, unspecified; G47.10 Hypersomnia, unspecified; E66.9 Obesity, unspecified; Z68.34 Body mass index [BMI] 34.0-34.9, adult
CPT/HCPCS: 94060; 94726; 94729; 94761

== ENCOUNTER 2019-06-14 20:52 | Outpatient (CLI) | payer MEDICARE, MEDICAID ==
[~2019-06-14 20:52] MED LIST changes: -OMEP20CA12 PO; +OMEP20CA13 PO; -RT-ALBUTEROL SULF 2.5 MG/3 ML PRE-MIX VIAL INH ONE; -RT-ALBUTEROL SULF 2.5 MG/3 ML PRE-MIX VIAL ONE; -TIZA2TAB3 PO; +TIZA2TAB4 PO
== END 2019-06-15 06:30 | disposition home or self-care (01) ==
LOC: SLEEP 20:52
PROVIDERS: ATTEND Nurse Practitioner Family
DX: G47.10 Hypersomnia, unspecified (principal); G47.50 Parasomnia, unspecified; J30.9 Allergic rhinitis, unspecified; E66.9 Obesity, unspecified; I25.5 Ischemic cardiomyopathy; J44.9 Chronic obstructive pulmonary disease, unspecified; I48.0 Paroxysmal atrial fibrillation
CPT/HCPCS: 95810

== ENCOUNTER → 2019-06-15 | Outpatient (CLI) | payer MEDICARE, MEDICAID ==
[~2019-06-15] MED LIST changes: +HOLD METFORMIN - RECEIVED CONTRAST 20 ML VIAL IV SCH; +IOHEXOL 350 MG/ML 100 ML (OMNIPAQUE 350) VIAL IV ONE; +NS 100 ML (IVPB) BAG IV ONE; +OMEP20CA12 PO; -OMEP20CA13 PO; +TIZA2TAB3 PO; -TIZA2TAB4 PO
[2019-06-15 07:08] LABS: BUN/CREATININE RATIO 20; GFR ESTIMATED > 60
--- NOTE | 2019-06-15 09:35 | Diagnostic Imaging Report ---
PROCEDURE: CT chest with contrast only. TECHNIQUE: Multiple contiguous axial images were obtained through the chest after administration of intravenous contrast. Auto Exposure Controls were utilized during the CT exam to meet ALARA standards for radiation dose reduction. INDICATION: Shortness of breath on exertion for last couple of years. COMPARISON: Correlation is made with prior CT chest from 10/27/2016. FINDINGS: Changes of median sternotomy are noted. Cardiac pacemaker remains in place. No axillary lymphadenopathy is seen. Small lymph nodes in the mediastinum are again noted. No mediastinal or hilar lymphadenopathy is detected. No pericardial fluid is seen. Trace bilateral pleural effusions or pleural thickening is again noted. Moderate-sized hiatal hernia is again seen. Small irregular density in the left apex is similar to prior exam and may represent scarring. Numerous micronodules throughout the left upper lobe appears similar to prior exam. Micronodules throughout the right upper lobe appear to be increased since prior. Right middle lobe appears stable. Right middle lobe distribution appears to be improved. IMPRESSION: 1. Pulmonary micronodules, similar in the left upper lobe with apparent increase in the right upper lobe again likely on infectious/inflammatory basis. There has been improvement in the right lower lobe since the study three years earlier. 2. No thoracic lymphadenopathy is seen. Dictated by: Dictated on workstation # [id number]
== END ==
LOC: RAD 06:39
PROVIDERS: ATTEND Nurse Practitioner Family
DX: J30.9 Allergic rhinitis, unspecified (principal); E66.9 Obesity, unspecified; I25.5 Ischemic cardiomyopathy; G47.50 Parasomnia, unspecified; G47.10 Hypersomnia, unspecified; I48.0 Paroxysmal atrial fibrillation; J44.9 Chronic obstructive pulmonary disease, unspecified; R91.8 Other nonspecific abnormal finding of lung field; Z98.890 Other specified postprocedural states; Z95.0 Presence of cardiac pacemaker
CPT/HCPCS: 36415; 71260; 82565; 84520

== ENCOUNTER 2019-07-05 05:48 | Outpatient (CLI) | payer MEDICARE, MEDICAID ==
[~2019-07-05] VITALS: Ht 180.3 cm; Wt 104.3 kg
[~2019-07-05 05:48] MED LIST changes: -HOLD METFORMIN - RECEIVED CONTRAST 20 ML VIAL IV SCH; -IOHEXOL 350 MG/ML 100 ML (OMNIPAQUE 350) VIAL IV ONE; -NS 100 ML (IVPB) BAG IV ONE; -OMEP20CA12 PO; +OMEP20CA13 PO; -TIZA2TAB3 PO; +TIZA2TAB4 PO
== END 2019-07-05 10:09 ==
LOC: PREOP 05:48
PROVIDERS: ATTEND Internal Medicine Critical Care Medicine
DX: Z01.818 Encounter for other preprocedural examination (principal); G47.10 Hypersomnia, unspecified; J44.9 Chronic obstructive pulmonary disease, unspecified; I25.5 Ischemic cardiomyopathy; E66.9 Obesity, unspecified; J30.9 Allergic rhinitis, unspecified; G47.50 Parasomnia, unspecified; I48.0 Paroxysmal atrial fibrillation; G47.33 Obstructive sleep apnea (adult) (pediatric)

== ENCOUNTER 2019-07-07 06:39 | Day surgery (SDC) | payer MEDICARE, MEDICAID ==
[~2019-07-07] VITALS: Ht 180.3 cm; Wt 104.3 kg
[2019-07-07] VITALS (13 sets, daily range): BP systolic 137–179; BP diastolic 63–80
[2019-07-07] MEDS ORDERED: LIDOCAINE PF 1% 2 ML AMP INJ ONE (06:40)
[2019-07-07] MEDS ORDERED: LIDOCAINE PF 2% 5 ML (XYLOCAINE) VIAL INJ ONE (06:40)
[2019-07-07] MEDS ORDERED: LIDOCAINE JELLY 2% 6 ML SYRINGE TOP ONE (06:40)
[2019-07-07] MEDS ORDERED: NS IV 500 ML 500 ML ONE (06:52)
[2019-07-07] MEDS ORDERED: NS IV 500 ML 500 ML IV PRN (07:08)
[2019-07-07] MEDS ORDERED: fentaNYL INJECTION 100 MCG/2 ML AMP IVP ONE (07:15)
[2019-07-07] MEDS ORDERED: MIDAZOLAM 2 MG/2 ML (VERSED) VIAL IVP ONE (07:15)
[2019-07-07] MEDS ORDERED: MIDAZOLAM 2 MG/2 ML (VERSED) VIAL ONE ×2 (07:30)
[2019-07-07] MEDS ORDERED: fentaNYL INJECTION 100 MCG/2 ML AMP ONE (07:30)
--- NOTE | 2019-07-07 08:24 | Pulmonary Procedures ---
Pulmonary Procedures Date of Procedure Date of Service: Jul 07, 2019 Bronch Bronchoscopy with brush X 2 of right mily, RLL bronchoalveolar lavage (BAL), Bilateral washes and, transbronchial RLL brushes. Preop DX: Micronodules, Infiltrate Postop DX: same No endobronchial mass Complications: none After informed consent obtained and formal time out pt was sedated using Fentanyl and Versed. Bronchoscope was advanced through the nare and vocal cords. 1% lidocaine was used to anesthetize vocal cords, epiglottis, mily, and left/right main stem bronchus. An anatomical tour was undertaken down to the segmental bronchi bilaterally. No endobronchial lesions noted. Bronchoscopy with brush X 2 of right mily, RLL bronchoalveolar lavage (BAL), Bilateral washes and, transbronchial RLL brushes. were obtained. Pt tolerated procedure well. No complications noted. Stat CXR is pending. GAGANDEEP VALLEJO DO Jul 07, 2019 08:24
--- NOTE | 2019-07-07 08:43 | Diagnostic Imaging Report ---
Patient History: POST BRONCH. Technique: Single frontal view of the chest Comparison: 05/13/2019 FINDINGS: The lung volumes are normal. No focal consolidation is seen. Subsegmental atelectasis is seen in the lung bases. No large pleural effusion or pneumothorax is seen. Stable enlarged cardiac silhouette with post CABG changes noted. A left pectoral pacemaker is stable in configuration. No acute osseous abnormality is seen. IMPRESSION: No pneumothorax. Bibasilar atelectasis. Stable cardiomegaly. Dictated by: Dictated on workstation # [id number]
--- NOTE | 2019-07-07 09:04 | Diagnostic Imaging Report ---
INDICATION: Undergoing bronchoscopy with history of pulmonary micronodules. TECHNIQUE: Single intraprocedural images lower mid chest and upper abdomen. FINDINGS/IMPRESSION: The hospital radiology department provided fluoroscopic imaging for the clinical service in support of an interventional procedure. A radiologist was not involved in the procedure. Please reference the operating provider's procedure note. Fluoroscopy Time: 16 seconds Dictated by: Dictated on workstation # [id number]
== END 2019-07-07 09:05 | disposition home or self-care (01) ==
LOC: ENDO 06:39
PROVIDERS: ATTEND Internal Medicine Critical Care Medicine
DX: R91.8 Other nonspecific abnormal finding of lung field (principal); I48.0 Paroxysmal atrial fibrillation; J30.2 Other seasonal allergic rhinitis; I25.5 Ischemic cardiomyopathy; J43.9 Emphysema, unspecified; G47.33 Obstructive sleep apnea (adult) (pediatric); G47.50 Parasomnia, unspecified; G47.10 Hypersomnia, unspecified; E66.9 Obesity, unspecified; Z79.01 Long term (current) use of anticoagulants; Z79.899 Other long term (current) drug therapy; Z79.82 Long term (current) use of aspirin; Z87.891 Personal history of nicotine dependence
CPT/HCPCS: 71045; 82962; 87015; 87070; 87101; 87116; 87205; 87206; 94640

== ENCOUNTER 2019-07-16 19:52 | Outpatient (CLI) | payer MEDICARE, MEDICAID | END 2019-07-17 07:14 | disposition home or self-care (01) | LOC: SLEEP 19:52 | PROVIDERS: ATTEND Nurse Practitioner Family | DX: G47.33 Obstructive sleep apnea (adult) (pediatric) (principal); G47.10 Hypersomnia, unspecified; J44.9 Chronic obstructive pulmonary disease, unspecified; I25.5 Ischemic cardiomyopathy; E66.9 Obesity, unspecified; J30.9 Allergic rhinitis, unspecified; G47.50 Parasomnia, unspecified; I48.0 Paroxysmal atrial fibrillation | CPT/HCPCS: 95811 ==

== ENCOUNTER 2019-09-01 01:35 | Emergency (ER) | payer MEDICARE, MEDICAID ==
[~2019-09-01] VITALS: Ht 180 cm; Wt 103.0 kg
[2019-09-01] MEDS ORDERED: NS IV 1000 ML 1,000 ML IV SCH (01:43)
[2019-09-01 02:00] LABS: BASOPHILS % (AUTO) 0 % (0-10); EOSINOPHILS # (AUTO) 0.3 10^3/uL (0.0-0.3); EOSINOPHILS % (AUTO) 2 % (0-10); HEMATOCRIT 40 % (40-54); HEMOGLOBIN 12.6 G/DL (13.3-17.7); LYMPHOCYTES # (AUTO) 0.2 X 10^3 (1.0-4.0); LYMPHOCYTES % (AUTO) 2 % (12-44); MEAN CORPUSCULAR HEMOGLOBIN 30 PG (25-34); MEAN CORPUSCULAR HGB CONC 32 G/DL (32-36); MEAN CORPUSCULAR VOLUME 94 FL (80-99); MEAN PLATELET VOLUME 8.9 FL (7.4-10.4); MONOCYTES # (AUTO) 0.3 X 10^3 (0.0-1.0); MONOCYTES % (AUTO) 2 % (0-12); NEUTROPHILS # (AUTO) 10.9 X 10^3 (1.8-7.8); NEUTROPHILS % (AUTO) 94 % (42-75); PLATELET COUNT 273 10^3/uL (130-400); RED CELL DISTRIBUTION WIDTH 14.7 % (10.0-14.5); WHITE BLOOD COUNT 11.6 10^3/uL (4.3-11.0)
[2019-09-01] MEDS ORDERED: ONDANSETRON 4 MG/2 ML (SDV) Z0FRAN IVP ONE (02:00)
[2019-09-01 02:11] LABS: INR 1.2 (0.8-1.4); PROTHROMBIN TIME PATIENT 15.4 SEC (12.2-14.7)
[2019-09-01 02:13] LABS: BAND NEUTROPHILS 9 %; NEUTROPHILS % (MANUAL) 88 %
[2019-09-01 02:14] LABS: ANISOCYTOSIS SLIGHT; BASOPHILS % (MANUAL) 0 %; EOSINOPHILS % (MANUAL) 0 %; LYMPHOCYTES % (MANUAL) 2 %; MONOCYTES % (MANUAL) 1 %
[2019-09-01 02:24] LABS: ALANINE AMINOTRANSFERASE 15 U/L (0-55); ALBUMIN 4.1 GM/DL (3.2-4.5); ALKALINE PHOSPHATASE 76 U/L (40-136); BILIRUBIN,TOTAL 0.8 MG/DL (0.1-1.0); BUN/CREATININE RATIO 21; CALCIUM 8.3 MG/DL (8.5-10.1); CARBON DIOXIDE 19 MMOL/L (21-32); CHLORIDE 105 MMOL/L (98-107); CREATININE SERUM 1.13 MG/DL (0.60-1.30); GFR ESTIMATED > 60; GLUCOSE 172 MG/DL (70-105); POTASSIUM 5.2 MMOL/L (3.6-5.0); SODIUM 136 MMOL/L (135-145); TOTAL PROTEIN 6.8 GM/DL (6.4-8.2)
[2019-09-01 03:07] LABS: CLARITY,URINE CLEAR; COLOR,URINE YELLOW; GLUCOSE, URINE (UA) 4+ (NEGATIVE); KETONES,URINE 3+ (NEGATIVE); NITRITE,URINE NEGATIVE (NEGATIVE); PH,URINE 6 (5-9); PROTEIN,URINE 1+ (NEGATIVE)
[2019-09-01 03:08] LABS: BACTERIA,URINE TRACE /HPF; BILIRUBIN,URINE NEGATIVE (NEGATIVE); LEUKOCYTE ESTERASE ,URINE NEGATIVE (NEGATIVE); RBC,URINE RARE /HPF; SQUAMOUS EPITHELIAL CELL,UR RARE /HPF; UROBILINOGEN,URINE NORMAL (NORMAL); WBC,URINE RARE /HPF
[2019-09-01] MEDS ORDERED: ACETAMINOPHEN 500 MG TAB (TYLENOL) PO ONE (03:45)
[2019-09-01] MEDS ORDERED: ONDA4TAB11 PO (04:03)
--- NOTE | 2019-09-01 04:04 | ED General ---
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 Nursing Sepsis Screen: No Definite Risk Source of Information: Patient Exam Limitations: No Limitations History of Present Illness Date Seen by Provider: Sep 01, 2019 Time Seen by Provider: 01:36 Initial Comments This 88-year-old gentleman presents to the emergency room with complaints of feeling weak, vomiting, racing heart, and low-grade fever up to 100.8. He denies any chest pain. He is not short of breath or coughing. Symptoms have been present for a couple of hours. Allergies and Home Medications Allergies Coded Allergies: No Known Drug Allergies (Verified , 07/15/18) Home Medications Albuterol Sulfate 18 Gm Hfa.aer.ad, 2 PUFF INH Q4H PRN for SHORTNESS OF BREATH, (Reported) Apixaban 5 Mg Tablet, 5 MG PO BID, (Reported) Aspirin 81 Mg Tablet.dr, 81 MG PO DAILY, (Reported) Cholecalciferol (Vitamin D3) 2,000 Unit Tablet, 2,000 UNIT PO DAILY, (Reported) Cyanocobalamin (Vitamin B-12) 2,500 Mcg Tab.subl, 2,500 MCG SL DAILY, (Reported) Diltiazem HCl 240 Mg Cap.er.24h, 240 MG PO DAILY, (Reported) Fluticasone/Umeclidin/Vilanter 1 Each Blst.w.dev, 1 PUFF INH DAILY, (Reported) Furosemide 40 Mg Tablet, 40 MG PO MoTuWeThFrSa, (Reported) DOES NOT TAKE ON SUNDAYS Glimepiride 4 Mg Tablet, 4 MG PO DAILY, (Reported) Irbesartan 150 Mg Tablet, 150 MG PO DAILY, (Reported) Levothyroxine Sodium 100 Mcg Tablet, 100 MCG PO DAILY, (Reported) Magnesium Oxide 500 Mg Capsule, 500 MG PO DAILY, (Reported) Metformin HCl 500 Mg Tablet, 1,000 MG PO BID, (Reported) TAKES 2 (500MG) TABLETS [place]-3/Dha/Epa/Fish Oil 1 Each Capsule, 1,000 MG PO DAILY, (Reported) Omeprazole 20 Mg Capsule.dr, 20 MG PO DAILY, (Reported) Ondansetron 4 Mg Tab.rapdis, 4 MG PO Q4H PRN for NAUSEA/VOMITING Prescribed by: HAMILTON GRANT on 09/01/19 0403 Potassium Chloride 10 Meq Tablet.er, 10 MEQ PO MoTuWeThFrSa, (Reported) DOES NOT TAKE ON SUNDAYS Propylene Glycol/Peg 400 15 Ml Drops, 1 DROP OU BID PRN for DRY EYES, (Reported) Simvastatin 20 Mg Tablet, 20 MG PO HS, (Reported) Tizanidine HCl 2 Mg Tablet, 2 MG PO HS, (Reported) Vit C/E/Zn/Coppr/Lutein/Zeaxan 1 Each Capsule, 1 CAP PO BID, (Reported) Patient Home Medication List Home Medication List Reviewed: Yes Review of Systems Review of Systems Constitutional: see HPI EENTM: no symptoms reported Respiratory: no symptoms reported Cardiovascular: see HPI Gastrointestinal: no symptoms reported Genitourinary: no symptoms reported Musculoskeletal: no symptoms reported Skin: no symptoms reported Psychiatric/Neurological: No Symptoms Reported Hematologic/Lymphatic: No Symptoms Reported Immunological/Allergic: no symptoms reported Past Rggtbre-Fbnvnk-Ybgyun Hx Past Med/Social Hx: Reviewed Nursing Past Med/Soc Hx Patient Social History Alcohol Use: Denies Use Recreational Drug Use: No Type Used: Cigarettes Former Smoker, Quit: Mar 24, 1992 2nd Hand Smoke Exposure: No Recent Foreign Travel: No Contact w/Someone Who Travel: No Recent Infectious Disease Expo: No Recent Hopitalizations: No Physical Abuse: No Sexual Abuse: No Mistreated: No Fear: No Immunizations Up To Date Tetanus Booster (TDap): Unknown Date of Pneumonia Vaccine: Oct 30, 2015 Date of Influenza Vaccine: Aug 30, 2017 Seasonal Allergies Seasonal Allergies: No Past Medical History Surgeries: Yes (NASAL POLYPS, ) CABG, Coronary Stent, Open Heart Surgery, Pacemaker Respiratory: Yes Pneumonia, COPD Currently Using CPAP: No Currently Using BIPAP: No Cardiac: Yes (PACEMAKER) Atrial Fibrillation, Coronary Artery Disease, Heart Attack, High Cholesterol, Hypertension Neurological: No Reproductive Disorders: No Sexually Transmitted Disease: No HIV/AIDS: No Genitourinary: Yes (PROSTATE CA) Prostate Problems Gastrointestinal: Yes Gastroesophageal Reflux, Chronic Constipation Musculoskeletal: Yes Arthritis Endocrine: Yes Hypothyroidsim, Diabetes, Non-Insulin dep HEENT: No Loss of Vision: Left Hearing Impairment: Denies, Hard of Hearing Cancer: Yes Prostate Did You Recieve Any Treatments: Yes What Type of Treatment Did You: Radiation Psychosocial: Yes Anxiety, Depression Integumentary: No Blood Disorders: No Adverse Reaction/Blood Tranf: No Family Medical History Patient reports no known family medical history. No Pertinent Family Hx, Hypertension Physical Exam-Suspected Sepsis Physical Exam Vital Signs Vital Signs - First Documented 09/01/19 04:20 O2 Delivery Room Air Capillary Refill : Less Than 3 Seconds Blood Pressure Mean: 110 Height, Weight, BMI Height: 5'11.00" Weight: 230lbs. 0.0oz. 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 Skin: normal color, warm/dry Focused Exam Lactate Level 09/01/19 01:53: Lactic Acid Level 1.83 Lactic Acid Level Progress/Results/Core Measures Suspected Sepsis Recent Fever Within 48 Hours: No Infection Criteria Present: None New/Unexplained Altered Menta: No Sepsis Screen: No Definite Risk SIRS Temperature: Pulse: 103 Respiratory Rate: 20 Laboratory Tests 09/01/19 01:53: White Blood Count 11.6H Blood Pressure 166 /83 Mean: 110 09/01/19 01:53: Lactic Acid Level 1.83 Laboratory Tests 09/01/19 01:53: Creatinine 1.13, INR Comment 1.2, Platelet Count 273, Total Bilirubin 0.8 Results/Orders Lab Results Laboratory Tests Test 09/01/19 01:53 09/01/19 02:47 Range/Units White Blood Count 11.6 H 4.3-11.0 10^3/uL Red Blood Count 4.22 L 4.35-5.85 10^6/uL Hemoglobin 12.6 L 13.3-17.7 G/DL Hematocrit 40 40-54 % Mean Corpuscular Volume 94 80-99 FL Mean Corpuscular Hemoglobin 30 25-34 PG Mean Corpuscular Hemoglobin Concent 32 32-36 G/DL Red Cell Distribution Width 14.7 H 10.0-14.5 % Platelet Count 273 130-400 10^3/uL Mean Platelet Volume 8.9 7.4-10.4 FL Neutrophils (%) (Auto) 94 H 42-75 % Lymphocytes (%) (Auto) 2 L 12-44 % Monocytes (%) (Auto) 2 0-12 % Eosinophils (%) (Auto) 2 0-10 % Basophils (%) (Auto) 0 0-10 % Neutrophils # (Auto) 10.9 H 1.8-7.8 X 10^3 Lymphocytes # (Auto) 0.2 L 1.0-4.0 X 10^3 Monocytes # (Auto) 0.3 0.0-1.0 X 10^3 Eosinophils # (Auto) 0.3 0.0-0.3 10^3/uL Basophils # (Auto) 0.0 0.0-0.1 10^3/uL Neutrophils % (Manual) 88 % Lymphocytes % (Manual) 2 % Monocytes % (Manual) 1 % Eosinophils % (Manual) 0 % Basophils % (Manual) 0 % Band Neutrophils 9 % Anisocytosis SLIGHT Prothrombin Time 15.4 H 12.2-14.7 SEC INR Comment 1.2 0.8-1.4 Activated Partial Thromboplast Time 38 H 24-35 SEC Sodium Level 136 135-145 MMOL/L Potassium Level 5.2 H 3.6-5.0 MMOL/L Chloride Level 105 98-107 MMOL/L Carbon Dioxide Level 19 L 21-32 MMOL/L Anion Gap 12 5-14 MMOL/L Blood Urea Nitrogen 24 H 7-18 MG/DL Creatinine 1.13 0.60-1.30 MG/DL Estimat Glomerular Filtration Rate > 60 BUN/Creatinine Ratio 21 Glucose Level 172 H 70-105 MG/DL Lactic Acid Level 1.83 0.50-2.00 MMOL/L Calcium Level 8.3 L 8.5-10.1 MG/DL Corrected Calcium 8.2 L 8.5-10.1 MG/DL Total Bilirubin 0.8 0.1-1.0 MG/DL Aspartate Amino Transf (AST/SGOT) 19 5-34 U/L Alanine Aminotransferase (ALT/SGPT) 15 0-55 U/L Alkaline Phosphatase 76 40-136 U/L C-Reactive Protein High Sensitivity 2.14 H 0.00-0.50 MG/DL Total Protein 6.8 6.4-8.2 GM/DL Albumin 4.1 3.2-4.5 GM/DL Urine Color YELLOW Urine Clarity CLEAR Urine pH 6 5-9 Urine Specific [place] 1.015 L 1.016-1.022 Urine Protein 1+ H NEGATIVE Urine Glucose (UA) 4+ H NEGATIVE Urine Ketones 3+ H NEGATIVE Urine Nitrite NEGATIVE NEGATIVE Urine Bilirubin NEGATIVE NEGATIVE Urine Urobilinogen NORMAL NORMAL MG/DL Urine Leukocyte Esterase NEGATIVE NEGATIVE Urine RBC (Auto) 2+ H NEGATIVE Urine RBC RARE /HPF Urine WBC RARE /HPF Urine Squamous Epithelial Cells RARE /HPF Urine Crystals NONE /LPF Urine Bacteria TRACE /HPF Urine Casts NONE /LPF Urine Mucus SMALL H /LPF Urine Culture Indicated CULTURE PENDING Micro Results Microbiology 09/01/19 Influenza Types A,B Antigen (BRITTANY) - Final, Complete My Orders Orders - HAMILTON TOTH MD Cbc With Automated Diff (09/01/19 01:43) Comprehensive Metabolic Panel (09/01/19 01:43) Blood Culture (09/01/19:43) Sputum Culture (09/01/19:43) Urinalysis (09/01/19 01:43) Urine Culture (09/01/19 01:43) Protime With Inr (09/01/19 01:43) Partial Thromboplastin Time (09/01/19:43) Chest 1 View, Ap/Pa Only (09/01/19 01:43) Ed Iv/Invasive Line Start (09/01/19 01:43) Ed Iv/Invasive Line Start (09/01/19 01:43) Vital Signs Adult Sepsis Patie Q15M (09/01/19 01:43) O2 (09/01/19 01:43) Remove Rings In Anticipation O (09/01/19 01:43) Lactic Acid Analyzer (09/01/19 01:43) Influenza A And B Antigens (09/01/19 01:43) Ns Iv 1000 Ml (Sodium Chloride 0.9%) (09/01/19 01:43) Hs C Reactive Protein (09/01/19 01:43) Ondansetron Injection (Zofran Injectio (09/01/19 02:00) Manual Differential (09/01/19 01:53) Acetaminophen Tablet (Tylenol Tablet) (09/01/19 03:45) Medications Given in ED Current Medications Medications Dose Ordered Sig/Pat Route Start Time Stop Time Status Last Admin Dose Admin Acetaminophen 1,000 mg ONCE ONCE PO 09/01/19 03:45 09/01/19 03:46 DC 09/01/19 03:46 1,000 MG Ondansetron HCl 8 mg ONCE ONCE IVP 09/01/19 02:00 09/01/19 02:01 DC 09/01/19 01:54 8 MG Vital Signs/I&O 09/01/19 09/01/19 09/01/19 09/01/19 01:35 01:35 03:46 04:20 Temp 38.1 38.1 38.1 38.1 Pulse 103 103 101 Resp 20 20 20 B/P (MAP) 166/83 (110) 166/83 153/74 (110) Pulse Ox 96 96 97 O2 Delivery Room Air Capillary Refill : Less Than 3 Seconds Blood Pressure Mean: 110 Progress Note : Progress Note Patient was seen and examined upon arrival. Zofran was given for nausea area and he was hydrated with a liter of IV normal saline. Tylenol was given for fever. Workup revealed no evidence of bacterial infection. CRP was low. WBC was minimally elevated. Chest x-ray showed no adverse changes. UA demonstrated no evidence of infection. Patient was feeling better after interventions. He was advised to follow-up with his primary care provider. Diagnostic Imaging Diagonstic Imaging: Xray Plain Films/CT/US/NM/MRI: chest Comments Chest x-ray viewed by me. Report not yet available. Compared with prior. No adverse changes. Departure Impression Primary Impression: Febrile illness Additional Impression: Nausea and vomiting Qualified Codes: R11.2 - Nausea with vomiting, unspecified Disposition: HOME, SELF-CARE Condition: Improved Departure-Patient Inst. Decision time for Depature: 04:01 Referrals: DAVID CORDERO MD (PCP/Family) Primary Care Physician Patient Instructions: Fever, Adult (DC) Add. Discharge Instructions: Drink plenty of clear liquids. You may use Zofran (ondansetron) as prescribed for nausea and vomiting. You may use Tylenol (acetaminophen) up to 1000 mg every 6 hours as needed for fever or pain. Follow-up with Dr. Cordero as soon as possible. Please call his office today for a follow-up appointment. All discharge instructions reviewed with patient and/or family. Voiced understanding. Scripts Ondansetron (Ondansetron Odt) 4 Mg Tab.rapdis 4 MG PO Q4H PRN for NAUSEA/VOMITING, #10 TAB Prov: HAMILTON TOTH MD 09/01/19 Copy Copies To 1: DAVID CORDERO MD, JOSHUA T MD Sep 01, 2019 04:04
[2019-09-01 04:20] VITALS: BP 153/74
--- NOTE | 2019-09-01 06:44 | Diagnostic Imaging Report ---
CHEST 1 VIEW, AP/PA ONLY INDICATION: Weakness and nausea. COMPARISON: 07/07/2019 FINDINGS: No focal airspace disease in the visualized lungs. Please note that the posterior lower lobes are poorly evaluated by portable radiography. Blunting of costophrenic angles could be due to small pleural effusions. No pneumothorax. Stable cardiomegaly and left pectoral transvenous pacemaker. There are changes of CABG. IMPRESSION: 1. Potential new small bilateral pleural effusions versus atelectasis. 2. Otherwise, no adverse development. Dictated by: Dictated on workstation # [id number]
== END 2019-09-01 04:19 | disposition home or self-care (01) ==
LOC: EDUNIT# 01:35 → ER 01:36
DX: R50.9 Fever, unspecified (principal); R11.2 Nausea with vomiting, unspecified; I10 Essential (primary) hypertension; E11.9 Type 2 diabetes mellitus without complications; J44.9 Chronic obstructive pulmonary disease, unspecified; E03.9 Hypothyroidism, unspecified; I25.2 Old myocardial infarction; I48.91 Unspecified atrial fibrillation; I25.10 Atherosclerotic heart disease of native coronary artery without angina pectoris; F41.9 Anxiety disorder, unspecified; F32.9 Major depressive disorder, single episode, unspecified; K21.9 Gastro-esophageal reflux disease without esophagitis; Z85.46 Personal history of malignant neoplasm of prostate; Z95.1 Presence of aortocoronary bypass graft; Z95.0 Presence of cardiac pacemaker; Z79.01 Long term (current) use of anticoagulants; Z79.82 Long term (current) use of aspirin; Z79.51 Long term (current) use of inhaled steroids; Z79.84 Long term (current) use of oral hypoglycemic drugs; Z87.891 Personal history of nicotine dependence; Z95.5 Presence of coronary angioplasty implant and graft; Z82.49 Family history of ischemic heart disease and other diseases of the circulatory system
CPT/HCPCS: 36415; 71045; 80053; 81000; 83605; 85007; 85027; 85610; 85730; 86141; 87040; 87088; 87804

== ENCOUNTER → 2019-10-12 | Outpatient (CLI) | payer MEDICARE, MEDICAID ==
[~2019-10-12] MED LIST changes: +CATHETER FLUSH 10 ML SYR IV PRN; +HOLD METFORMIN - RECEIVED CONTRAST 20 ML VIAL IV SCH; +IOHEXOL 350 MG/ML 100 ML (OMNIPAQUE 350) VIAL IV ONE; +NS 100 ML (IVPB) BAG IV ONE; +ONDA4TAB11 PO
[2019-10-12 11:52] LABS: BUN/CREATININE RATIO 20; CREATININE SERUM 1.02 MG/DL (0.60-1.30); GFR ESTIMATED > 60
--- NOTE | 2019-10-12 13:34 | Diagnostic Imaging Report ---
PROCEDURE: CT chest with contrast only. TECHNIQUE: Multiple contiguous axial images were obtained through the chest after administration of intravenous contrast. Auto Exposure Controls were utilized during the CT exam to meet ALARA standards for radiation dose reduction. INDICATION: Dyspnea and wheezing. COMPARISON: Comparison is made to study of 06/15/2019. FINDINGS: There has been development of moderate amount of left pleural fluid. Small amount of right pleural fluid is also noted. There is subjacent atelectasis and/or pneumonitis in both lung bases. There is persistent moderate hiatal hernia. Dense calcifications are noted in the right hilum likely related to previous granulomatous residua. Mildly prominent mediastinal lymph nodes are noted. There is dense coronary artery calcification. Note is made of calcification in the dependent portions of gallbladder lumen. IMPRESSION: Development of bilateral pleural fluid, greater on the left with subjacent atelectasis and/or pneumonitis. Otherwise, no focal consolidation or other significant adverse change is identified. Dictated by: Dictated on workstation # [id number]
== END ==
LOC: RAD 11:04
PROVIDERS: ATTEND Nurse Practitioner Family
DX: J94.8 Other specified pleural conditions (principal); J30.9 Allergic rhinitis, unspecified; J18.9 Pneumonia, unspecified organism; R91.8 Other nonspecific abnormal finding of lung field
CPT/HCPCS: 36415; 71260; 82565; 84520

== ENCOUNTER → 2020-04-25 | Outpatient (CLI) | payer MEDICARE, MEDICAID ==
[~2020-04-25] MED LIST changes: +DILT120C88 PO; -DILT120C94 PO; -DILT240C PO; +DILT240C91 PO; -FLUP2.5T PO; -GLIM1TAB PO; +GLIM1TAB4 PO; -GLIM2TAB PO; +GLIM2TAB4 PO; -GLIM4TAB PO; +GLIM4TAB5 PO; +IRBE150T23 PO; -IRBE150T26 PO; +IRBE300T17 PO; -IRBE300T18 PO; -MAGN400T6 PO; +MAGN400T8 PO; -METO-370 PO; +METO50TA7 PO; -MONT10TA24 PO; +MONT10TA26 PO; -OMEP20CA13 PO; +OMEP20CA18 PO; +SIMV20TA26 PO; -TIZA2TAB4 PO; +TIZA2TAB7 PO; +[UNRECOGNIZED DRUG - CODE] PO
[2020-04-25 10:42] LABS: CREATININE SERUM 1.34 MG/DL (0.60-1.30)
--- NOTE | 2020-04-25 13:09 | Diagnostic Imaging Report ---
EXAMINATION: CT Chest with intravenous contrast. TECHNIQUE: Multiple contiguous axial images were obtained through the chest after the uneventful administration of intravenous contrast. All CT scans use one or more of the following dose optimizing techniques: automated exposure control, MA and/or KvP adjustment based on a patient size and exam type, or iterative reconstruction. INDICATION: Shortness of breath, lung nodule. COMPARISON: 10/12/2019 FINDINGS: There are unchanged upper lobe predominant perilymphatic nodules with calcified enlarged mediastinal lymph nodes. There are small bilateral pleural effusions with overlying atelectasis. Calcified plaques are seen along the right and left pleural surfaces. There is no edema or pneumonia. There is mild fibrosis in the lung bases. The ventricles are mildly dilated and there has been coronary artery bypass grafting. There are severe coronary artery calcifications. Generator pack is in the left chest wall. There is no axillary or supraclavicular lymphadenopathy. No central pulmonary embolism. There is a small hiatal hernia. Small amount of sludge or stones are present in the gallbladder. There are no suspicious osseus lesions. IMPRESSION: 1. Unchanged upper lobe predominant perilymphatic nodules with calcified and enlarged mediastinal lymph nodes. While this may be related to prior granulomatous infection this pattern can also be seen with silicosis and sarcoidosis. Of note, the patient also has calcified pleural plaques suggestive of a history of occupational exposures. 2. Decrease in size of small bilateral pleural effusions. Dictated by: Dictated on workstation # [id number]
== END ==
LOC: RAD 09:58
PROVIDERS: ATTEND Nurse Practitioner Family
DX: J44.9 Chronic obstructive pulmonary disease, unspecified (principal); J90 Pleural effusion, not elsewhere classified; J92.9 Pleural plaque without asbestos; R91.8 Other nonspecific abnormal finding of lung field; G47.33 Obstructive sleep apnea (adult) (pediatric)
CPT/HCPCS: 36415; 71260; 82565; 84520

== ENCOUNTER 2021-05-14 10:00 | Day surgery (SDC) | payer MEDICARE, MEDICAID ==
[~2021-05-14] VITALS: Ht 180.3 cm; Wt 97.1 kg
[2021-05-14] VITALS (7 sets, daily range): BP systolic 109–156; BP diastolic 56–70
[2021-05-14 08:58] LABS: HEMATOCRIT 38 % (40-54); HEMOGLOBIN 12.1 g/dL (13.3-17.7); MEAN CORPUSCULAR HEMOGLOBIN 31 pg (25-34); MEAN CORPUSCULAR HGB CONC 32 g/dL (32-36); MEAN CORPUSCULAR VOLUME 99 fL (80-99); MEAN PLATELET VOLUME 8.9 fL (9.0-12.2); PLATELET COUNT 307 10^3/uL (130-400); WHITE BLOOD COUNT 7.8 10^3/uL (4.3-11.0)
[2021-05-14 09:10] LABS: INR 1.1 (0.8-1.4); PROTHROMBIN TIME PATIENT 14.2 SEC (12.2-14.7)
[2021-05-14 09:17] LABS: ALANINE AMINOTRANSFERASE 11 U/L (0-55); ALBUMIN 3.7 GM/DL (3.2-4.5); ALKALINE PHOSPHATASE 86 U/L (40-136); BILIRUBIN,TOTAL 0.5 MG/DL (0.1-1.0); BUN/CREATININE RATIO 21; CALCIUM 9.4 MG/DL (8.5-10.1); CARBON DIOXIDE 21 MMOL/L (21-32); CHLORIDE 104 MMOL/L (98-107); CHOLESTEROL 110 MG/DL (< 200); CREATININE SERUM 1.12 MG/DL (0.60-1.30); GFR ESTIMATED > 60; GLUCOSE 180 MG/DL (70-105); HDL CHOLESTEROL 40 MG/DL (40-60); SODIUM 137 MMOL/L (135-145); TOTAL PROTEIN 7.6 GM/DL (6.4-8.2); TRIGLYCERIDES 55 MG/DL (<150); VLDL CHOLESTEROL 11 MG/DL (5-40)
[~2021-05-14 10:00] MED LIST changes: +ALPR.25T PO; -ALPR0.254 PO; +ASPI-1238 PO; -ASPI-983 PO; +BACITRACIN INJECTION 50,000 UNIT, SODIUM CHLORIDE 0.9% IRRIGATIO 500 ML IR ONE; -CATHETER FLUSH 10 ML SYR IV PRN; +EMPA1TAB7 PO; -HOLD METFORMIN - RECEIVED CONTRAST 20 ML VIAL IV SCH; -IOHEXOL 350 MG/ML 100 ML (OMNIPAQUE 350) VIAL IV ONE; +LEVO125C4 PO; -MONT10TA26 PO; +MONT10TA32 PO; -NS 100 ML (IVPB) BAG IV ONE; +NS IV 1000 ML 1,000 ML IV ONE; +TIZA-169 PO; -TIZA2TAB7 PO
[2021-05-14] MEDS ORDERED: MIDAZOLAM 5 MG/5 ML (VERSED) VIAL ONE (10:30)
[2021-05-14] MEDS ORDERED: fentaNYL INJ 100 MCG/2 ML AMP ONE (10:38)
--- NOTE | 2021-05-14 11:10 | Cardiac Procedure Note-CS/ASA ---
Pre-Procedure Note Pre-Op Procedure Note H&P Reviewed The H&P was reviewed, patient examined and no changes noted. Date H&P Reviewed: May 14, 2021 Time H&P Reviewed: 10:00 Conscious Sedation Pre-Proced Time 10:00 ASA Score 3 For ASA 3 and 4: Consider anesthesia and medical clearance. Also, for patients with a history of failed moderate sedation consider anesthesia. Airway Lungs Heart ASA score ASA 1: a normal healthy patient ASA 2: a patient with a mild systemic disease (mid diabetes, controlled hypertension, obesity ASA 3: a patient with a severe systemic disease that limits activity (angina, COPD, prior Myocardial infarction) ASA 4: a patient with an incapacitating disease that is a constant threat to life (CHF, renal failure) ASA 5: a moribund patient not expected to survive 24 hrs. (ruptured aneurysm) ASA 6: a declared brain- patient whose organs are being harvested. For emergent operations, add the letter E after the classification Mallampati Classification Grade 2 Sedation Plan Analgesia, Amnesia, Plan communicated to team members, Discussed options with patient/fam, Discussed risks with patient/fam The patient is an appropriate candidate to undergo the planned procedure, sedation, and anesthesia. The patient immediately re-assessed prior to indication. ADRIAN RAMIREZ MD FACP FAC CCDS May 14, 2021 11:10
[2021-05-14] MEDS ORDERED: CEFU500T63 PO (11:15)
[2021-05-14] MEDS ORDERED: PATIENT MAY USE OWN MEDS, ALL PO SCH (11:15)
[2021-05-14] MEDS ORDERED: NS IV 1000 ML 1,000 ML IV SCH (11:15)
--- NOTE | 2021-05-14 11:17 | Discharge Inst-Post Device ---
Discharge Inst-Post Device Follow up/Plan F/u at Dr Dixon's for wound check on 05/17/21 F/u at Dr Dixon'dk for doctor visit in 6 weeks Heart Healthy Diet Do not lift arm on side of device placement above head for 4 weeks. Do not push and pull heavy objects for 4 weeks. Activity as tolerated. No driving for one week. Leave dressing on until follow up at the office. ADRIAN DIXON MD FACP FACC CCDS May 14, 2021 11:17
--- NOTE | 2021-05-14 11:18 | Discharge Inst-Cardiology ---
Discharge Inst-Cardiac Discharge Medications New Medications: Cefuroxime Axetil (Cefuroxime) 500 Mg Tablet 500 MG PO BID, #10 TAB Continued Medications: Albuterol Sulfate (Ventolin Hfa) 18 Gm Hfa.aer.ad 2 PUFF INH Q4H PRN for SHORTNESS OF BREATH, INHALER Apixaban (Eliquis) 5 Mg Tablet 5 MG PO BID, TAB Aspirin (Aspirin EC) 81 Mg Tablet.dr 81 MG PO DAILY, TAB Cholecalciferol (Vitamin D3) (Vitamin D-3) 2,000 Unit Tablet 2000 UNIT PO DAILY, TAB Cyanocobalamin (Vitamin B-12) (Vitamin B-12) 2,500 Mcg Tab.subl 2500 MCG SL DAILY, TAB Diltiazem HCl (Diltiazem 24Hr ER) 240 Mg Cap.er.24h 240 MG PO DAILY, CAP Empagliflozin/Metformin HCl (Synjardy 12.5-1,000 mg Tablet) 1 Each Tablet 2 EACH PO DAILY, TAB Fluticasone/Umeclidin/Vilanter (Trelegy Ellipta 100-62.5-25) 1 Each Blst.w.dev 1 PUFF INH DAILY, INHALER Furosemide (Furosemide) 40 Mg Tablet 40 MG PO DAILY, TAB Glimepiride (Glimepiride) 4 Mg Tablet 4 MG PO DAILY, TAB Irbesartan (Irbesartan) 150 Mg Tablet 150 MG PO DAILY, TAB Levothyroxine Sodium (Levothyroxine) 125 Mcg Capsule 125 MCG PO DAILY, CAP Magnesium Oxide (Magnesium) 500 Mg Capsule 500 MG PO DAILY, CAP [place]-3/Dha/Epa/Fish Oil (Fish Oil 1,000 mg Softgel) 1 Each Capsule 1000 MG PO DAILY, CAP Omeprazole (Omeprazole) 20 Mg Capsule.dr 20 MG PO DAILY, CAP Simvastatin (Simvastatin) 20 Mg Tablet 20 MG PO HS, TAB Tizanidine HCl (Tizanidine HCl) 2 Mg Tablet 2 MG PO HS, TAB Vit C/E/Zn/Coppr/Lutein/Zeaxan (Preservision Areds 2 Softgel) 1 Each Capsule 1 CAP PO BID, CAP Patient Instructions Patient Instructions: Hold ELIQUIS today and tomorrow morning. Resume tomorrow evening ADRIAN RAMIREZ MD FACP [facility] CCDS May 14, 2021 11:18
--- NOTE | 2021-05-14 13:48 | Diagnostic Imaging Report ---
INDICATION: Status post pulse generator change. COMPARISON: 09/01/2019 FINDINGS: Single frontal radiographic view of the chest was obtained and shows normal cardiac silhouette. Pulmonary vasculature is mildly prominent. Lungs show diffuse prominence of the interstitium with more focal patchy airspace opacities within the right base and left midlung. There is no large effusion or pneumothorax. Left-sided dual-lead pacemaker and sternotomy wires noted. Osseous structures show no acute abnormalities. IMPRESSION: 1. No pneumothorax status post pacemaker manipulation. 2. Pulmonary vascular congestion with probable diffuse interstitial pulmonary edema with more focal alveolar edema in the right base versus left midlung. Pneumonia is also consideration. Follow-up is recommended. Dictated by: Dictated on workstation # [id number]
--- NOTE | 2021-05-14 15:51 | OPERATIVE REPORT ---
DATE OF SERVICE: 05/14/2021 PREOPERATIVE DIAGNOSIS: Dual chamber pacemaker at elective replacement indicator. POSTOPERATIVE DIAGNOSIS: Dual chamber pacemaker at elective replacement indicator. PROCEDURE: Dual chamber pacemaker pulse generator change. INDICATIONS FOR PROCEDURE: The patient is an 89-year-old gentleman who has a dual chamber pacemaker in place for symptomatic sinus node dysfunction. It has reached elective replacement indicator. Informed consent was obtained for a pulse generator change. DESCRIPTION OF PROCEDURE: He was brought to the cardiac catheterization laboratory. The left prepectoral area was prepared and draped in the usual sterile fashion. The pacemaker was found to be present quite lateral in the left chest. We used fluoroscopy to identify the site. Lidocaine 1% was used for local anesthesia. Sharp and blunt dissection was used to open the pacemaker pocket and the pacemaker was removed from the pocket and detached from the leads. A new pacemaker was attached to the previous leads and the pacemaker and leads were placed back into the pacemaker pocket. The new pacemaker was secured with 0 Ethibond to prevent it from drifting further lateral. The pacemaker pocket was thoroughly irrigated with an antibiotic solution. Good hemostasis was assured. We had general surgery (Dr. Brantley) on standby because of the lateral location of this pulse generator. No complication was seen. We closed the pocket in 2 layers using 3-0 Vicryl. The patient tolerated the procedure well. The pacemaker that was removed was Medtronic model #A2DR01 with serial #[id number]. The new pacemaker is Medtronic model W1DR01 with serial #[id number]. The leads were not changed. Right atrial capture threshold could not be obtained because the patient is in atrial fibrillation. Atrial fibrillation waves were being sensed at 1 millivolt. R-wave is a chronically sensed at 3.9 millivolts and remains unchanged. The pacing impedance for both leads is 361 ohms. Ventricular capture threshold was 1.75 volts at 1 milliseconds. Job ID: [id number] DocumentID: [id number] Dictated Date: 05/14/2021 11:25:12 Paraeducator Date: 05/14/2021 15:50:01 Dictated By: ADRIAN RAMIREZ MD, MA, FACP, FACC,
== END 2021-05-14 15:00 | disposition home or self-care (01) ==
LOC: CATH 10:00 → SDC 12:00 → CATH 15:00
PROVIDERS: ATTEND Internal Medicine Cardiovascular Disease
DX: Z45.010 Encounter for checking and testing of cardiac pacemaker pulse generator [battery] (principal); I48.0 Paroxysmal atrial fibrillation; I25.10 Atherosclerotic heart disease of native coronary artery without angina pectoris; I65.23 Occlusion and stenosis of bilateral carotid arteries; E78.2 Mixed hyperlipidemia; G47.33 Obstructive sleep apnea (adult) (pediatric); I08.0 Rheumatic disorders of both mitral and aortic valves; I25.5 Ischemic cardiomyopathy; E11.9 Type 2 diabetes mellitus without complications; E03.9 Hypothyroidism, unspecified; Z87.891 Personal history of nicotine dependence; Z79.01 Long term (current) use of anticoagulants; Z95.1 Presence of aortocoronary bypass graft; Z79.84 Long term (current) use of oral hypoglycemic drugs; Z79.899 Other long term (current) drug therapy; Z79.890 Hormone replacement therapy; Z79.82 Long term (current) use of aspirin
CPT/HCPCS: 33228; 71045; 80053; 80061; 85027; 85610; 85730; 87081; C1785; 36415

== ENCOUNTER 2021-08-23 07:09 | Inpatient (IN) | payer MEDICARE, MEDICAID ==
[~2021-08-23] VITALS: Ht 180.3 cm; Wt 104.3 kg
[~2021-08-23 07:09] MED LIST changes: -BACITRACIN INJECTION 50,000 UNIT, SODIUM CHLORIDE 0.9% IRRIGATIO 500 ML IR ONE; -NS IV 1000 ML 1,000 ML IV ONE
[2021-08-23 07:36] LABS: BASOPHILS # (AUTO) 0.1 10^3/uL (0.0-0.1); BASOPHILS % (AUTO) 1 % (0-10); EOSINOPHILS # (AUTO) 0.3 10^3/uL (0.0-0.3); EOSINOPHILS % (AUTO) 2 % (0-10); HEMATOCRIT 39 % (40-54); HEMOGLOBIN 12.4 g/dL (13.3-17.7); LYMPHOCYTES # (AUTO) 0.3 10^3/uL (1.0-4.0); LYMPHOCYTES % (AUTO) 2 % (12-44); MEAN CORPUSCULAR HEMOGLOBIN 31 pg (25-34); MEAN CORPUSCULAR HGB CONC 32 g/dL (32-36); MEAN CORPUSCULAR VOLUME 98 fL (80-99); MEAN PLATELET VOLUME 8.9 fL (9.0-12.2); MONOCYTES # (AUTO) 1.5 10^3/uL (0.0-1.0); MONOCYTES % (AUTO) 9 % (0-12); NEUTROPHILS # (AUTO) 15.2 10^3/uL (1.8-7.8); NEUTROPHILS % (AUTO) 87 % (42-75); PLATELET COUNT 330 10^3/uL (130-400); WHITE BLOOD COUNT 17.5 10^3/uL (4.3-11.0)
[2021-08-23 07:48] LABS: CHLORIDE 102 MMOL/L (98-107); POTASSIUM 5.1 MMOL/L (3.6-5.0); SODIUM 135 MMOL/L (135-145)
[2021-08-23 07:49] LABS: CALCIUM 9.5 MG/DL (8.5-10.1); GLUCOSE 154 MG/DL (70-105); INR 1.3 (0.8-1.4); PROTHROMBIN TIME PATIENT 16.4 SEC (12.2-14.7)
--- NOTE | 2021-08-23 07:49 | ED Respiratory ---
General Chief Complaint: Respiratory Problems Stated Complaint: SOB,WEAKNESS Source: patient, EMS Exam Limitations: no limitations History of Present Illness Date Seen by Provider: Aug 23, 2021 Time Seen by Provider: 07:12 Initial Comments 89-year-old male with past medical history of CHF, COPD, afib on eliquis, Pacemaker dependent, hypertension coming in via EMS from home due to him feeling short of breath. He states he has not felt well for about a couple months, and over a month ago was put on antibiotics, steroids, and inhaler for COPD. Cough developed he says 2-3 weeks ago. He began feeling more short of breath over the past week. Has not been doing better. His dyspnea is moderate to severe, worsening with exertion, better with rest. It peaked this morning and that is why he called an ambulance. Has been taking his medications as prescribed including his Lasix and blood thinner. He believes he might have even lost a pound since previous weight. Uses CPAP intermittently at night and it was not helpful last night. Fully vaccinated with the Moderna vaccine for Covid Allergies and Home Medications Allergies Coded Allergies: No Known Drug Allergies (Verified , 07/15/18) Patient Home Medication List Home Medication List Reviewed: Yes Albuterol Sulfate (Ventolin Hfa) 18 Gm Hfa.aer.ad, 2 PUFF INH Q4H PRN for SHORTNESS OF BREATH, (Reported) Entered as Reported by: ZAINAB MARINELLI on 07/15/18 1316 Apixaban (Eliquis) 5 Mg Tablet, 5 MG PO BID, (Reported) Entered as Reported by: ZAINAB MARINELLI on 07/15/18 1316 Aspirin (Aspirin EC) 81 Mg Tablet.dr, 81 MG PO DAILY, (Reported) Entered as Reported by: ZAINAB MARINELLI on 08/20/17 0802 Cefuroxime Axetil (Cefuroxime) 500 Mg Tablet, 500 MG PO BID Prescribed by: ADRIAN RAMIREZ on 05/14/21 1115 Cholecalciferol (Vitamin D3) (Vitamin D-3) 2,000 Unit Tablet, 2,000 UNIT PO DAILY, (Reported) Entered as Reported by: JONATHAN GUTIERREZ on 01/20/16 0254 Cyanocobalamin (Vitamin B-12) (Vitamin B-12) 2,500 Mcg Tab.subl, 2,500 MCG SL DAILY, (Reported) Entered as Reported by: ZAINAB MARINELLI on 07/15/18 1333 Diltiazem HCl (Diltiazem 24Hr ER) 240 Mg Cap.er.24h, 240 MG PO DAILY, (Reported) Entered as Reported by: ZAINAB MARINELLI on 07/15/18 1316 Empagliflozin/Metformin HCl (Synjardy 12.5-1,000 mg Tablet) 1 Each Tablet, 2 EACH PO DAILY, (Reported) Entered as Reported by: DANA AMBROSE on 05/14/21 0931 Fluticasone/Umeclidin/Vilanter (Trelegy Ellipta 100-62.5-25) 1 Each Blst.w.dev, 1 PUFF INH DAILY, (Reported) Entered as Reported by: ZAINAB MARINELLI on 05/11/19 1449 Furosemide (Furosemide) 40 Mg Tablet, 40 MG PO DAILY, (Reported) Entered as Reported by: ZAINAB MARINELLI on 01/21/16 0958 Glimepiride (Glimepiride) 4 Mg Tablet, 4 MG PO DAILY, (Reported) Entered as Reported by: ZAINAB MARINELLI on 05/11/19 1449 Irbesartan (Irbesartan) 150 Mg Tablet, 150 MG PO DAILY, (Reported) Entered as Reported by: ZAINAB MARINELLI on 07/15/18 1316 Levothyroxine Sodium (Levothyroxine) 125 Mcg Capsule, 125 MCG PO DAILY, (Reported) Entered as Reported by: DANA AMBRSOE on 05/14/21 0931 Magnesium Oxide (Magnesium) 500 Mg Capsule, 500 MG PO DAILY, (Reported) Entered as Reported by: ZAINAB MARINELLI on 07/15/18 1333 [place]-3/Dha/Epa/Fish Oil (Fish Oil 1,000 mg Softgel) 1 Each Capsule, 1,000 MG PO DAILY, (Reported) Entered as Reported by: ZAINAB MARINELLI on 01/21/16 1000 Omeprazole (Omeprazole) 20 Mg Capsule.dr, 20 MG PO DAILY, (Reported) Entered as Reported by: ZAINAB MARINELLI on 03/24/17 0821 Simvastatin (Simvastatin) 20 Mg Tablet, 20 MG PO HS, (Reported) Entered as Reported by: ALON REBOLLEDO on 11/02/15 1041 Tizanidine HCl (Tizanidine HCl) 2 Mg Tablet, 2 MG PO HS, (Reported) Entered as Reported by: VERITO MELGOZA on 03/01/18 1110 Vit C/E/Zn/Coppr/Lutein/Zeaxan (Preservision Areds 2 Softgel) 1 Each Capsule, 1 CAP PO BID, (Reported) Entered as Reported by: ZAINAB MARINELLI on 06/03/16 1416 Review of Systems Review of Systems Constitutional: No chills, No fever EENTM: No nose congestion Respiratory: cough, short of breath Cardiovascular: No chest pain Gastrointestinal: No abdominal pain, No diarrhea, No nausea, No vomiting Genitourinary: No dysuria Musculoskeletal: No back pain Skin: No rash Psychiatric/Neurological: No Symptoms Reported Hematologic/Lymphatic: No Symptoms Reported Immunological/Allergic: no symptoms reported All Other Systems Reviewed Negative Unless Noted: Yes Past Ariedav-Vcgicr-Fhhevn Hx Patient Social History Tobacco Use?: No Smoking Status: Former Smoker Use of E-Cig and/or Vaping dev: No Substance use?: No Alcohol Use?: No Immunizations Up To Date Tetanus Booster (TDap): Unknown First/Initial COVID19 Vaccinat: 01/30/2021 Second COVID19 Vaccination Raul: 03/04/2021 COVID19 Vaccine [employer] 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: [place] Seasonal Allergies Seasonal Allergies: No Past Medical History Surgeries: Yes (NASAL POLYPS, ) CABG, Pacemaker Respiratory: Yes Sleep Apnea, COPD Currently Using CPAP: Yes Currently Using BIPAP: No Cardiac: Yes Atrial Fibrillation, Coronary Artery Disease, High Cholesterol, Hypertension Neurological: No Reproductive Disorders: No Sexually Transmitted Disease: No HIV/AIDS: No Genitourinary: Yes Prostate Problems Gastrointestinal: Yes Gastroesophageal Reflux Musculoskeletal: Yes Arthritis Endocrine: Yes Hypothyroidsim, Diabetes, Non-Insulin dep HEENT: No Loss of Vision: Left Hearing Impairment: Denies, Hard of Hearing Cancer: Yes Prostate Did You Recieve Any Treatments: Yes What Type of Treatment Did You: Radiation, Other Psychosocial: Yes Anxiety, Depression Integumentary: No Blood Disorders: No Adverse Reaction/Blood Tranf: No Family Medical History Patient reports no known family medical history. No Pertinent Family Hx, Hypertension Physical Exam Vital Signs - First Documented 08/23/21 07:12 Temp 37.6 Pulse 92 Resp 24 B/P (MAP) 143/82 (102) Pulse Ox 95 O2 Delivery OxyMask Capillary Refill : Height: 5'11.00" Weight: 230lbs. 0.0oz. 104.282888qs; 29.86 BMI Method:Stated General Appearance: WD/WN, no apparent distress HEENT: PERRL/EOMI, normal ENT inspection, pharynx normal Neck: non-tender, full range of motion, supple, normal inspection Respiratory: chest non-tender, no respiratory distress, no accessory muscle use, crackles Cardiovascular: regular rate, rhythm Gastrointestinal: normal bowel sounds, non tender, soft; No distended, No guarding, No rebound Extremities: normal range of motion, non-tender, no calf tenderness, normal capillary refill, pedal edema Neurologic/Psychiatric: no motor/sensory deficits, alert, normal mood/affect Skin: normal color, warm/dry Lymphatic: no adenopathy Focused Exam Lactate Level 08/23/21 07:24: Lactic Acid Level 2.41*H Lactic Acid Level Laboratory Tests Test 08/23/21 07:24 Lactic Acid Level 2.41 MMOL/L (0.50-2.00) *H Progress/Results/Core Measures Suspected Sepsis SIRS Temperature: Pulse: Respiratory Rate: Laboratory Tests 08/23/21 07:28: White Blood Count 17.5H Blood Pressure / Mean: 08/23/21 07:24: Lactic Acid Level 2.41*H Laboratory Tests 08/23/21 07:28: Creatinine 1.10, INR Comment 1.3, Platelet Count 330 Results/Orders Lab Results Laboratory Tests Test 08/23/21 07:17 08/23/21 07:24 08/23/21 07:28 Range/Units Influenza Type A (RT-PCR) Not Detected Not Detecte Influenza Type B (RT-PCR) Not Detected Not Detecte SARS-CoV-2 RNA (RT-PCR) Not Detected Not Detecte Lactic Acid Level 2.41 *H 0.50-2.00 MMOL/L White Blood Count 17.5 H 4.3-11.0 10^3/uL Red Blood Count 4.01 L 4.30-5.52 10^6/uL Hemoglobin 12.4 L 13.3-17.7 g/dL Hematocrit 39 L 40-54 % Mean Corpuscular Volume 98 80-99 fL Mean Corpuscular Hemoglobin 31 25-34 pg Mean Corpuscular Hemoglobin Concent 32 32-36 g/dL Red Cell Distribution Width 14.5 10.0-14.5 % Platelet Count 330 130-400 10^3/uL Mean Platelet Volume 8.9 L 9.0-12.2 fL Immature Granulocyte % (Auto) 1 % Neutrophils (%) (Auto) 87 H 42-75 % Lymphocytes (%) (Auto) 2 L 12-44 % Monocytes (%) (Auto) 9 0-12 % Eosinophils (%) (Auto) 2 0-10 % Basophils (%) (Auto) 1 0-10 % Neutrophils # (Auto) 15.2 H 1.8-7.8 10^3/uL Lymphocytes # (Auto) 0.3 L 1.0-4.0 10^3/uL Monocytes # (Auto) 1.5 H 0.0-1.0 10^3/uL Eosinophils # (Auto) 0.3 0.0-0.3 10^3/uL Basophils # (Auto) 0.1 0.0-0.1 10^3/uL Immature Granulocyte # (Auto) 0.1 0.0-0.1 10^3/uL Neutrophils % (Manual) 88 % Lymphocytes % (Manual) 2 % Monocytes % (Manual) 5 % Eosinophils % (Manual) 0 % Basophils % (Manual) 0 % Band Neutrophils 5 % Anisocytosis SLIGHT Prothrombin Time 16.4 H 12.2-14.7 SEC INR Comment 1.3 0.8-1.4 Activated Partial Thromboplast Time 42 H 24-35 SEC Sodium Level 135 135-145 MMOL/L Potassium Level 5.1 H 3.6-5.0 MMOL/L Chloride Level 102 98-107 MMOL/L Carbon Dioxide Level 18 L 21-32 MMOL/L Anion Gap 15 H 5-14 MMOL/L Blood Urea Nitrogen 21 H 7-18 MG/DL Creatinine 1.10 0.60-1.30 MG/DL Estimat Glomerular Filtration Rate 63 BUN/Creatinine Ratio 19 Glucose Level 154 H 70-105 MG/DL Calcium Level 9.5 8.5-10.1 MG/DL Troponin I < 0.028 <0.028 NG/ML B-Type Natriuretic Peptide 102.9 H <100.0 PG/ML My Orders Orders - VINAY DIAZ MD Chest 1 View, Ap/Pa Only (08/23/21 07:21) Basic Metabolic Panel (08/23/21 07:21) BNP (08/23/21 07:21) Cbc With Automated Diff (08/23/21 07:21) Protime With Inr (08/23/21 07:21) Partial Thromboplastin Time (08/23/21 07:21) Troponin I (08/23/21 07:21) Ekg Tracing (08/23/21 07:21) Covid 19 Inhouse Test (08/23/21 07:21) Influenza A And B By Pcr (08/23/21 07:21) Blood Culture (08/23/21 07:34) Lactic Acid Analyzer (08/23/21 07:34) Manual Differential (08/23/21 07:28) Lactated Ringers (Lr 1000 Ml Iv Solution (08/23/21 08:30) Ceftriaxone (Rocephin) (08/23/21 08:30) Azithromycin Injection (Zithromax Inject (08/23/21 08:30) Vital Signs/I&O 08/23/21 07:12 Temp 37.6 Pulse 92 Resp 24 B/P (MAP) 143/82 (102) Pulse Ox 95 O2 Delivery OxyMask Capillary Refill : Progress Note : Progress Note 89-year-old male with above history coming in due to being acutely short of breath worsening this morning. Has a cough for over 3 weeks. Is fully vaccin ated for Covid and has never been tested. ABCs were intact and vitals were stable on presentation although he was 89% on room air. Given a DuoNeb by EMS. He did desat to the high 80s and was placed on 5 L with oxygen around 94 to 95%. He does not wear oxygen at home. Lung sounds with crackles mostly in the bases worse on the right. Basic labs including lactic and cardiac biomarkers ordered as well as Covid test. Lactic is elevated at 2.4. Given the patient's history of heart failure and his new respiratory failure with hypoxia, I believe 30cc/kg of IV fluids could be detrimental to him especially given his history of CHF. Given a trial of 500cc IVF. His lactic acid elevation is more likely related to his hypoxia driven from his lung pathology. CXR on my interpretation with right lower base infiltrate which is consistent with his physical exam. Given IV ceftriaxone and azithro. COVID/flu negative on our testing. Trop negative. BNP slightly elevated. Given his continued, new hypoxia he will be admitted for pneumonia. Discussed with Dr. Connelly at 08:40 who recommends inpatient. ECG Initial ECG Impression Date: Aug 23, 2021 Initial ECG Impression Time: 07:38 Initial ECG Rate: 83 Comment Ventricularly paced rhythm with a rate of 83 appears similar to previous EKG April 2019, wandering baseline and motion artifact Diagnostic Imaging Diagonstic Imaging: Xray Plain Films/CT/US/NM/MRI: chest Comments [facility] [place], [place] NAME: JUAN LUIS [facility] REC#: [id number] PT STATUS: REG ER : 1930 PHYSICIAN: VINAY DIAZ MD ADMIT DATE: 08/23/21/ER Draft Date of Exam:08/23/21 CHEST 1 VIEW, AP/PA ONLY INDICATION: Cough and congestion Portable chest 7:54 AM There are postoperative changes from CABG surgery. There is a dual-chamber pacemaker. There is infiltrate present in the right lower lung. There are no effusions or pneumothoraces. IMPRESSION: Right lower lobe infiltrate suspicious for pneumonia. Dictated on workstation # [id number] Dict: 08/23/21 0808 Trans: 08/23/21 0811 [facility] [id number] Interpreted by: LIONEL ROD MD Electronically signed by: Departure Impression Primary Impression: Acute hypoxemic respiratory failure Additional Impression: Pneumonia Qualified Codes: J18.9 - Pneumonia, unspecified organism Disposition: ADMITTED INPATIENT Condition: Stable Departure-Patient Inst. Referrals: DAVID CORDERO MD (PCP/Family) Primary Care Physician VINAY DIAZ MD Aug 23, 2021 07:49
[2021-08-23 07:51] LABS: CARBON DIOXIDE 18 MMOL/L (21-32)
[2021-08-23 07:53] LABS: GFR ESTIMATED 63
[2021-08-23 07:54] LABS: BUN/CREATININE RATIO 19
--- NOTE | 2021-08-23 08:11 | Diagnostic Imaging Report ---
INDICATION: Cough and congestion Portable chest 7:54 AM There are postoperative changes from CABG surgery. There is a dual-chamber pacemaker. There is infiltrate present in the right lower lung. There are no effusions or pneumothoraces. IMPRESSION: Right lower lobe infiltrate suspicious for pneumonia. Dictated by: Dictated on workstation # [id number]
[2021-08-23] MEDS ORDERED: cefTRIAXone 1,000 MG in WATER (STERILE) FOR INJECTION 10 ML IV ONE (08:30)
[2021-08-23] MEDS ORDERED: LACTATED RINGERS 1,000 ML IV ONE (08:30)
[2021-08-23] MEDS ORDERED: AZITHROMYCIN INJECTION 500 MG in NS (IVPB) 250 ML IV ONE (08:30)
[2021-08-23 08:32] LABS: ANISOCYTOSIS SLIGHT; BAND NEUTROPHILS 5 %; BASOPHILS % (MANUAL) 0 %; EOSINOPHILS % (MANUAL) 0 %; LYMPHOCYTES % (MANUAL) 2 %; MONOCYTES % (MANUAL) 5 %; NEUTROPHILS % (MANUAL) 88 %
[2021-08-23] MEDS ORDERED: LEVO125T6 PO (12:42)
[2021-08-23] MEDS ORDERED: MAGN400T50 PO (12:42)
[2021-08-23 13:04] VITALS: BP 127/73
[2021-08-23 14:09] VITALS: BP 127/73
[2021-08-23] MEDS ORDERED: MELATONIN 3 MG TABLET PO PRN (14:30)
[2021-08-23] MEDS ORDERED: ONDANSETRON 4 MG/2 ML (SDV) Z0FRAN IV PRN (14:30)
[2021-08-23] MEDS ORDERED: ACETAMINOPHEN 500 MG TAB (TYLENOL) PO PRN (14:30)
[2021-08-23] MEDS ORDERED: ANTACID SUSP 30 ML UDC (MYLANTA) PO PRN (14:30)
[2021-08-23] MEDS ORDERED: MILK OF MAGNESIA 400 MG/5 ML 30 ML UDC PO PRN (14:30)
[2021-08-23] MEDS ORDERED: BUDE10.7 IH (15:06)
--- NOTE | 2021-08-23 15:11 | History & Physical-Hospitalist ---
SHEELAVIKNATALIE A MED STUDENT 08/23/21 1511: History of Present Illness HPI/Chief Complaint 89 yo male presented to ED for cough, SOA and subjective fever/chills for three weeks. Pt has hx of CHF, Afib, COPD, Diabetes and Sleep apnea. Pt was admitted to cardiac step down unit for community acquired pneumonia with sepsis. Pt required oxymask 5L d/t hypoxemia. Pt reports he is currently doing better. Denies SOA, fever/chills, and decreased appetite. Confirms cough. Pt reports his daughter in law helps with his medications and the only time he doesnt take his lasix is when he has a doctors appt. He didnt take his lasix on Thursday when he saw Dr. Cuellar. Pt also f/u with Zack three weeks ago. Pts oxygen was decreased to NC 3L while eating and pt is tolerating this well. Date Seen 08/23/21 Time Seen by a Provider: 13:00 Attending Physician Penny Jaimes MD PCP José Miguel Cuellar MD Referring Physician Date of Admission Aug 23, 2021 at 08:40 Home Medications & Allergies Home Medications Reviewed patient Home Medication Reconciliation performed by pharmacy medication reconciliations transportation planning technician and/or nursing. Patients Allergies have been reviewed. Allergies Allergies Coded Allergies No Known Drug Allergies (Verified07/15/18) Past Sudhfne-Gperip-Axxtwv Hx Patient Social History Tobacco Use?: No Smoking Status: Former Smoker Use of E-Cig and/or Vaping dev: No Substance use?: No Alcohol Use?: No Pt feels they are or have been: No Immunizations Up To Date Date of Influenza Vaccine: Aug 30, 2020 First/Initial COVID19 Vaccinat: 01/30 Second COVID19 Vaccination Raul: 03/03 Tetanus Booster (TDap): Unknown Hepatitis A: No Hepatitis B: No Date of Pneumonia Vaccine: Sep 02, 2017 Seasonal Allergies Seasonal Allergies: No Current Status Advance Directives: No Communicates: Verbally Primary Language: Chinese Preferred Spoken Language: Chinese Is interpretation needed?: No Sensory deficits: Hearing impairment Implanted or Applied Medical D: Pacemaker Past Medical History Surgeries: CABG, Pacemaker Sleep Apnea, COPD Currently Using CPAP: Yes Currently Using BIPAP: No Atrial Fibrillation, Coronary Artery Disease, High Cholesterol, Hypertension Sexually Transmitted Disease: No HIV/AIDS: No Prostate Problems Gastroesophageal Reflux Arthritis Hypothyroidsim, Diabetes, Non-Insulin dep Loss of Vision: Left Hearing Impairment: Denies, Hard of Hearing Prostate Did You Recieve Any Treatments: Yes What Type of Treatment Did You: Radiation, Other Anxiety, Depression Blood Disorders: No Adverse Reaction/Blood Tranf: No Family Medical History Patient reports no known family medical history. No Pertinent Family Hx, Hypertension Review of Systems Constitutional: see HPI EENTM: no symptoms reported Respiratory: see HPI Cardiovascular: no symptoms reported Gastrointestinal: no symptoms reported Genitourinary: frequency Musculoskeletal: no symptoms reported Skin: no symptoms reported Physical Exam Physical Exam Vital Signs Vital Signs - First Documented 08/23/21 08/23/21 07:12 10:41 Temp 37.6 Pulse 92 Resp 24 B/P (MAP) 143/82 (102) Pulse Ox 95 O2 Delivery OxyMask O2 Flow Rate 5.00 Capillary Refill : Less Than 3 Seconds Height, Weight, BMI Height: 5'11.00" Weight: 230lbs. 0.0oz. 104.099602ik; 29.59 BMI Method:Stated General Appearance: No Apparent Distress, WD/WN HEENT: PERRL/EOMI Respiratory: Chest Non Tender, Normal Breath Sounds, No Accessory Muscle Use, No Respiratory Distress, Crackles, Decreased Breath Sounds Cardiovascular: Regular Rate, Rhythm, No Gallop, No Murmur, Normal Peripheral Pulses Gastrointestinal: Normal Bowel Sounds, No Organomegaly, No Pulsatile Mass, Non Tender, Soft Extremity: Normal Capillary Refill, Normal Inspection, Normal Range of Motion, Non Tender, No Calf Tenderness, Pedal Edema Neurologic/Psychiatric: Alert, Oriented x3, No Motor/Sensory Deficits, Normal Mood/Affect, cloth checker II-XII Norm as Tested Skin: Normal Color, Warm/Dry Results Results/Procedures Labs Laboratory Tests 08/23/21 07:28 Patient resulted labs reviewed. 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 Assessment/Plan Admission Diagnosis Admission Status: Inpatient Order (span 2 midnights) Reason for Inpatient Admission: see below Assessment and Plan Patient admitted due to severe sepsis due to CAP. Will continue on IV abx and monitor in stepdown overnight given his history of cardiac disease. I titrated oxygen down to 3lpm and he tolerated this well. Lactic acidosis has already resolved. Cultures drawn in the ER. Supervisory-Addendum Brief Verification & Attestation Participated in pt care: history, MDM, physical Personally performed: exam, history, MDM, supervision of care Care discussed with: Medical Student Procedures: n/a Results interpretation: Verified all documentation Verification and Attestation of Medical Student E/M Service A medical student performed and documented this service in my presence. I reviewed and verified all information documented by the medical student and made modifications to such information, when appropriate. I personally performed the physical exam and medical decision making. Penny Jaimes, Aug 24, 2021,10:38 NATALIE BURGESS MED STUDENT Aug 23, 2021 15:11 PENNY JAIMES MD Aug 24, 2021 10:41
[2021-08-23 15:30] VITALS: BP 126/68
[2021-08-23] MEDS: RT-ALBUTEROL/IPRATROPIUM 3 ML (DUONEB) VIAL INH SCH ×2 (15:58→20:40)
[2021-08-23 20:00] VITALS: BP 130/71
[2021-08-23] MEDS: APIXABAN 5 MG (ELIQUIS) TABLET PO SCH (20:13)
[2021-08-23] MEDS: MAGNESIUM OXIDE (MAG-OX)400 MG TAB PO SCH (20:13)
[2021-08-23] MEDS: SIMvastatin 20 MG (ZOCOR) TAB PO SCH (20:13)
[2021-08-23] MEDS: RT--FLUTICASONE/SALMETEROL 232-14 (AIRDUO RespiCLICK) IH SCH (20:45)
[2021-08-23 23:18] VITALS: BP 100/77
[2021-08-24] VITALS: BP 132/66
[2021-08-24 02:45] LABS: BASOPHILS % (AUTO) 1 % (0-10); EOSINOPHILS # (AUTO) 0.3 10^3/uL (0.0-0.3); EOSINOPHILS % (AUTO) 4 % (0-10); HEMATOCRIT 34 % (40-54); HEMOGLOBIN 10.5 g/dL (13.3-17.7); LYMPHOCYTES # (AUTO) 0.5 10^3/uL (1.0-4.0); LYMPHOCYTES % (AUTO) 6 % (12-44); MEAN CORPUSCULAR HEMOGLOBIN 30 pg (25-34); MEAN CORPUSCULAR HGB CONC 31 g/dL (32-36); MEAN CORPUSCULAR VOLUME 97 fL (80-99); MONOCYTES # (AUTO) 1.3 10^3/uL (0.0-1.0); MONOCYTES % (AUTO) 15 % (0-12); NEUTROPHILS # (AUTO) 6.2 10^3/uL (1.8-7.8); NEUTROPHILS % (AUTO) 74 % (42-75); PLATELET COUNT 269 10^3/uL (130-400); WHITE BLOOD COUNT 8.4 10^3/uL (4.3-11.0)
[2021-08-24 03:04] LABS: POTASSIUM 4.4 MMOL/L (3.6-5.0)
[2021-08-24 03:05] LABS: CALCIUM 8.7 MG/DL (8.5-10.1)
[2021-08-24 03:09] LABS: CREATININE SERUM 1.16 MG/DL (0.60-1.30)
[2021-08-24 03:36] VITALS: BP 140/73
[2021-08-24] MEDS: LEVOTHYROXINE 125 MCG (LEVOTHROID) TABLET PO SCH (05:59)
[2021-08-24] MEDS: RT-ALBUTEROL/IPRATROPIUM 3 ML (DUONEB) VIAL INH SCH ×4 (07:12→20:09)
[2021-08-24] MEDS: UMECLIDINIUM BROMIDE (INCRUSE ELLIPTA) 7'S IH SCH (07:13)
[2021-08-24] MEDS: RT--FLUTICASONE/SALMETEROL 232-14 (AIRDUO RespiCLICK) IH SCH ×2 (07:13→20:09)
[2021-08-24 07:59] VITALS: BP 128/76
[2021-08-24] MEDS: ASPIRIN E.C. 81 MG (ECOTRIN) TAB PO SCH (08:39)
[2021-08-24] MEDS: PANTOPRAZOLE 20 MG TABLET (PROTONIX) PO SCH (08:39)
[2021-08-24] MEDS: AZITHROMYCIN 250 MG TAB (ZITHROMAX) PO SCH (08:39)
[2021-08-24] MEDS: APIXABAN 5 MG (ELIQUIS) TABLET PO SCH ×2 (08:39→20:29)
[2021-08-24] MEDS: cefTRIAXone 1,000 MG in WATER (STERILE) FOR INJECTION 10 ML IV SCH (08:40)
[2021-08-24] MEDS ORDERED: LOSARTAN 50 MG (COZAAR) TAB PO SCH (09:00)
--- NOTE | 2021-08-24 10:15 | Progress Note - Hospitalist ---
NATALIE BURGESS A MED STUDENT 08/24/21 1015: Subjective HPI/CC On Admission Date Seen by Provider: Aug 24, 2021 Time Seen by Provider: 09:15 89 yo male presented to ED for cough, SOA and subjective fever/chills for three weeks. Pt has hx of CHF, Afib, COPD, Diabetes and Sleep apnea. Pt was admitted to cardiac step down unit for community acquired pneumonia with sepsis. Pt required oxymask 5L d/t hypoxemia. Pt reports he is currently doing better. Denies SOA, fever/chills, and decreased appetite. Confirms cough. Pt reports his daughter in law helps with his medications and the only time he doesnt take his lasix is when he has a doctors appt. He didnt take his lasix on Thursday when he saw Dr. Cuellar. Pt also f/u with Zack three weeks ago. Pts oxygen was decreased to NC 3L while eating and pt is tolerating this well. Subjective/Events-last exam Pt up in bed watching television this morning. Pt reports he feels slightly better today than yesterday. SOA same as yesterday and cough is productive. Pt does reports sweating last noc and trouble falling asleep. After being given Tylenol, melatonin and some sherbert he fell asleep with no issues. Pt stated he was on Room Air, but was started on NC 2L by RN d/t desaturation this morning. Pt states he did not feel exceptionally SOA at this time. Pt reports good appetite and his last BM was Thursday. Constipation is normal for him, he usu ally takes Senna every noc to help with this. Review of Systems General: No Chills HEENT: No Head Aches, No Sore Throat Pulmonary: Dyspnea, Cough (productive) Cardiovascular: No: Chest Pain, Palpitations Gastrointestinal: Constipation; No: Nausea, Vomiting, Abdominal Pain, Diarrhea Genitourinary: No Dysuria, No Frequency Focused Exam Lactate Level 08/23/21 07:24: Lactic Acid Level 2.41*H 08/23/21 14:05: Lactic Acid Level 1.78 Objective Exam Vital Signs Vital Signs Date Time Temp Pulse Resp B/P (MAP) Pulse Ox O2 Delivery O2 Flow Rate FiO2 08/24/21 11:18 36.4 74 17 130/62 (84) 98 Nasal Cannula 08/24/21 08:00 2.00 Capillary Refill : Less Than 3 Seconds General Appearance: No Apparent Distress, WD/WN HEENT: PERRL/EOMI Respiratory: Chest Non Tender, Normal Breath Sounds, No Accessory Muscle Use, No Respiratory Distress, Crackles Cardiovascular: Regular Rate, Rhythm, No Gallop, No Murmur, Normal Peripheral Pulses Gastrointestinal: Normal Bowel Sounds, No Organomegaly, No Pulsatile Mass, Non Tender, Soft Extremity: Normal Capillary Refill, Normal Inspection, Normal Range of Motion, Non Tender, No Calf Tenderness, Pedal Edema (1+ pitting) Neurologic/Psychiatric: Alert, Oriented x3, No Motor/Sensory Deficits, Normal Mood/Affect, digital solutions architect II-XII Norm as Tested Skin: Normal Color, Warm/Dry Results/Procedures Lab Laboratory Tests 08/24/21 02:30 Patient resulted labs reviewed. 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 Still has a cough with some production but overall breathing has improved. Has been titrated down from 5 L to at times just room air but is currently on 2 L as his nurse reports with exertion he still gets quite dyspneic. Discussed plan to transfer to the floor and continue IV antibiotics. Continuing to wait for culture results. Supervisory-Addendum Brief Verification & Attestation Participated in pt care: history, MDM, physical Personally performed: exam, history, MDM, supervision of care Care discussed with: Medical Student Procedures: n/a Results interpretation: Verified all documentation Verification and Attestation of Medical Student E/M Service A medical student performed and documented this service in my presence. I reviewed and verified all information documented by the medical student and made modifications to such information, when appropriate. I personally performed the physical exam and medical decision making. Inez Jaimes, Aug 24, 2021,12:16 NATALIE BURGESS MED STUDENT Aug 24, 2021 10:15 INEZ JAIMES MD Aug 24, 2021 12:17
--- NOTE | 2021-08-24 10:59 | Physical Therapy Evaluation ---
PT Evaluation-General Medical Diagnosis Admission Date Aug 23, 2021 at 08:40 Medical Diagnosis: SOB, weakness, pneumonia Onset Date: Aug 23, 2021 Therapy Diagnosis Therapy Diagnosis: general weakness Height/Weight Height (Feet): 5 Height (Inches): 11.00 Weight (Pounds): 230 Weight (Ounces): 0.0 Precautions Precautions/Isolations: Fall Prevention, Standard Precautions Weight Bear Status Right Lower Extremity: Right Full Weight Bearing Left Lower Extremity: Left Full Weight Bearing Referral Physician: Maricel Reason for Referral: Evaluation/Treatment Medical History Pertinent Medical History: Arthritis, CABG, CAD, COPD, DM, HTN, Hypothroidism, Prostate CA Additional Medical History pacemaker, a-fib, former smoker, GERD, hypothyroidism, KAKE, anxiety, depression Current History Pt to ER with increasing SOB, weakness, found to have pneumonia. Reviewed History: Yes Social History Home: Single Level Current Living Status: Alone Entry Into Home: Level Entry Lives at [facility] Prior Prior Level of Function SCALE: Activities may be completed with or without assistive devices. 5-Yooyqyjcwa-ozxdlpq completes the activity by him/herself with no assistance from a helper. 5-Set-up or Clean-up Assistance-helper sets up or cleans up; patient completes activity. Lyons assists only prior to or following the activity. 4-Supervision or Touching Assistance-helper provides verbal cues and/or touching/steadying and/or contact guard assistance as patient completes activity. Assistance may be provided throughout the activity or intermittently. 3-Partial/Moderate Assistance-helper does LESS THAN HALF the effort. Lyons lifts, holds or supports trunk or limbs, but provides less than half the effort. 2-Substantial/Maximal Assistance-helper does MORE THAN HALF the effort. Lyons lifts or holds trunk or limbs and provides more than half the effort. 9-Aznfztaiu-mflfnw does ALL the effort. Patient does none of the effort to complete the activity. Or, the assistance of 2 or more helpers is required for the patient to complete the activity. If activity was not attempted, code reason: 7-Patient Refused. 9-Not Applicable-not attempted and the patient did not perform the activity before the current illness, exacerbation or injury. 10-Not Attempted due to Environmental Limitations-(lack of equipment, weather restraints, etc.). 88-Not Attempted due to Medical Conditions or Safety Concerns. Bed Mobility: 6 Transfers (B,C,W/C): 6 Gait: 6 Stairs: 9 Wheelchair Mobility: 6 Indoor Mobility (Ambulation): Independent Stairs: Not Applicalbe Prior Devices Use: Motorized scooter Furniture cruises in the apartment, SPC "from the apartment to the car", motorized scooters in stores PT Evaluation-Current Subjective Pt agreeable. Reports he is feeling a little better. "It would feel great" to get up to chair. Denies pain. Pain Numeric Pain Scale: 0-No Pain Location: No Pain Reported Pt/Family Goals Home Objective Patient Orientation: Person, Place, Time, Situation Attachments: Oxygen Monitors ROM/Strength ROM Upper Extremities Grossly WFL for mobility ROM Lower Extremities Grossly WFL for transfers Strength Upper Extremities Grossly WFL for mobility Strength Lower Extremities Grossly 3+/5 Integumentary/Posture Integumentary See nurses' notes Posture kyphotic Sensory Hearing: Impaired Transfers Lying to Sitting/Side of Bed(Q: 6 Sit to Stand (QC): 5 Chair/Aln-dt-Wgwmd Xfer(QC): 5 SBA for bed->chair transfer without AD, Pt steadying on chair, bed rail. Mobility limited by multiple lines. Up in chair with all needs met, O2 in situ with sats >90% with activity Gait Does the Patient Walk?: Yes Mode of Locomotion: Walk Anticipated Mode of Locomotion: Walk Walk 10 feet (QC): 10 Walk 50 ft with 2 Turns(QC): 10 Walk 150 ft (QC): 9 Walking 10ft/uneven surface-QC: 10 Distance: 2 Gait Assistive Device: None Comments/Gait Description Heavy use of bed rail, chair arms. Wheelchair Training Does the Pt Use a Wheelchair?: Yes Distance: 10 Wheel 50 ft with 2 turns (QC): 10 Wheel 150 ft (QC): 10 Type of Wheelchair: Motorized Uses store scooters at PLOF Stairs #of Steps: 9 1 Step (curb) (QC): 9 4 Steps (QC): 9 12 Steps (QC): 9 Balance Sitting Static: Normal Sitting Dynamic: Normal Standing Static: Good Standing Dynamic: Fair Treatment Eval. Up to chair with needs met, O2 in situ Assessment/Needs Pt would benefit from skilled PT to improve functional strength, balance, and functional activity tolerance to allow safe return home. Rehab Potential: Good PT Short Term Goals Short Term Goals Time Frame: Aug 31, 2021 Roll Left & Right: 6 Sit to lyin Lying to sitting on side of be: 6 Sit to stand: 6 Chair/jen-px-nhsnw transfer: 6 PT Raw Stock Dyeing Machine Tender Goals Retirement Goals PT Raw Stock Dyeing Machine Tender Goals Time Frame: Sep 07, 2021 Roll Left & Right (QC): 6 Sit to Lying (QC): 6 Lying-Sitting on Side/Bed(QC): 6 Sit to Stand (QC): 6 Chair/Ljq-ax-Mpowu Xfer(QC): 6 Toilet Transfer (QC): 6 Car Transfer (QC): 6 Does the Patient Walk: Yes Walk 10 feet (QC): 6 Walk 50ft with 2 Turns (QC): 6 Walk 150 ft (QC): 9 Walking 10ft on Uneven Surface: 6 1 Step (curb) (QC): 4 4 Steps (QC): 9 12 Steps (QC): 9 Picking up an Object (QC): 9 Does the Pt use WC or Scooter?: No Wheel 50 feet with 2 turns (QC: 9 Type: N/A Wheel 150 feet: 9 Type: N/A PT LTGs established to allow safe return to [facility]. At [facility], Pt utilized motorized carts in stores only due to limited functional activity tolerance. PT Plan Problem List Problem List: Activity Tolerance, Functional Strength, Safety, Balance, Gait, Transfer, Bed Mobility Treatment/Plan Treatment Plan: Continue Plan of Care Treatment Plan: Bed Mobility, Education, Functional Activity Gopal, Functional Strength, Gait, Safety, Therapeutic Exercise, Transfers Treatment Duration: Sep 07, 2021 Frequency: 6 times per week Estimated Hrs Per Day: .25 hour per day Patient and/or Family Agrees t: Yes Safety Risks/Education Teaching Recipient: Patient Teaching Methods: Discussion Response to Teaching: Verbalize Understanding PT POC Time/GCodes Time In: 0954 Time Out: 1010 Total Billed Treatment Time: 16 Total Billed Treatment 1, PHYLLISDre x 16' [place] DALTON DPT Aug 24, 2021 10:59
[2021-08-24 11:18] VITALS: BP 130/62
[2021-08-24] MEDS ORDERED: SENNA W/DOCUSATE (SENOKOT S) TABLET PO PRN (13:45)
[2021-08-24 16:14] VITALS: BP 137/62
[2021-08-24 19:48] VITALS: BP 142/67
[2021-08-24] MEDS: SIMvastatin 20 MG (ZOCOR) TAB PO SCH (20:29)
[2021-08-24] MEDS: MAGNESIUM OXIDE (MAG-OX)400 MG TAB PO SCH (20:29)
[2021-08-25] VITALS: BP 106/61
[2021-08-25 04:40] VITALS: BP 115/69
[2021-08-25] MEDS: LEVOTHYROXINE 125 MCG (LEVOTHROID) TABLET PO SCH (04:57)
[2021-08-25 06:26] LABS: HEMATOCRIT 35 % (40-54); HEMOGLOBIN 10.9 g/dL (13.3-17.7); MEAN CORPUSCULAR HEMOGLOBIN 30 pg (25-34); MEAN CORPUSCULAR HGB CONC 31 g/dL (32-36); MEAN CORPUSCULAR VOLUME 98 fL (80-99); MEAN PLATELET VOLUME 9.9 fL (9.0-12.2); PLATELET COUNT 225 10^3/uL (130-400); WHITE BLOOD COUNT 8.5 10^3/uL (4.3-11.0)
[2021-08-25 06:40] LABS: POTASSIUM 5.1 MMOL/L (3.6-5.0)
[2021-08-25 06:45] LABS: CREATININE SERUM 0.99 MG/DL (0.60-1.30)
[2021-08-25] MEDS: RT-ALBUTEROL/IPRATROPIUM 3 ML (DUONEB) VIAL INH SCH ×4 (07:37→19:00)
[2021-08-25] MEDS: UMECLIDINIUM BROMIDE (INCRUSE ELLIPTA) 7'S IH SCH (07:41)
[2021-08-25] MEDS: RT--FLUTICASONE/SALMETEROL 232-14 (AIRDUO RespiCLICK) IH SCH ×2 (07:41→19:00)
[2021-08-25 07:51] VITALS: BP 122/72
[2021-08-25] MEDS: APIXABAN 5 MG (ELIQUIS) TABLET PO SCH ×2 (09:46→20:27)
[2021-08-25] MEDS: AZITHROMYCIN 250 MG TAB (ZITHROMAX) PO SCH (09:46)
[2021-08-25] MEDS: cefTRIAXone 1,000 MG in WATER (STERILE) FOR INJECTION 10 ML IV SCH (09:46)
[2021-08-25] MEDS: ASPIRIN E.C. 81 MG (ECOTRIN) TAB PO SCH (09:46)
[2021-08-25] MEDS: PANTOPRAZOLE 20 MG TABLET (PROTONIX) PO SCH (09:46)
--- NOTE | 2021-08-25 10:33 | Progress Note - Hospitalist ---
NATALIE BURGESS A MED STUDENT 08/25/21 1033: Subjective HPI/CC On Admission Date Seen by Provider: Aug 25, 2021 Time Seen by Provider: 09:50 89 yo male presented to ED for cough, SOA and subjective fever/chills for three weeks. Pt has hx of CHF, Afib, COPD, Diabetes and Sleep apnea. Pt was admitted to cardiac step down unit for community acquired pneumonia with sepsis. Pt required oxymask 5L d/t hypoxemia. Pt reports he is currently doing better. Denies SOA, fever/chills, and decreased appetite. Confirms cough. Pt reports his daughter in law helps with his medications and the only time he doesnt take his lasix is when he has a doctors appt. He didnt take his lasix on Thursday when he saw Dr. Cuellar. Pt also f/u with Zack three weeks ago. Pts oxygen was decreased to NC 3L while eating and pt is tolerating this well. Subjective/Events-last exam Pt sitting up in chair this morning, states he is feeling better than yesterday. Pt admits to SOA on exertion. He has been getting up to the bathroom by himself with no dizziness or instability. Pt admits to productive cough. Pt inquiring about physical therapy coming today, RN stated he was not sure if they would be here today. Spoke to RN about pt's oxygen requirement as he went from room air to NC 1L. RN states pt was feeling a little SOA on room air when he was up walking to the bathroom, so they placed him on 1L NC for the pt's comfort. Review of Systems General: No Chills Pulmonary: Dyspnea, Cough Cardiovascular: No: Chest Pain, Palpitations Gastrointestinal: No: Nausea, Vomiting, Diarrhea, Constipation Genitourinary: No Dysuria, No Frequency Focused Exam Lactate Level 08/23/21 07:24: Lactic Acid Level 2.41*H 08/23/21 14:05: Lactic Acid Level 1.78 Objective Exam Vital Signs Vital Signs Date Time Temp Pulse Resp B/P (MAP) Pulse Ox O2 Delivery O2 Flow Rate FiO2 08/25/21 11:17 36.0 75 20 124/70 (88) 98 Nasal Cannula 1.00 Capillary Refill : Less Than 3 Seconds General Appearance: No Apparent Distress, WD/WN HEENT: PERRL/EOMI Respiratory: Chest Non Tender, Normal Breath Sounds, No Accessory Muscle Use, No Respiratory Distress, Crackles (Right lower lobe) Cardiovascular: Regular Rate, Rhythm, No Gallop, No Murmur, Normal Peripheral Pulses Gastrointestinal: Normal Bowel Sounds, No Organomegaly, No Pulsatile Mass, Non Tender, Soft Extremity: Normal Capillary Refill, Normal Inspection, Normal Range of Motion, Non Tender, No Calf Tenderness, Pedal Edema (RLE 1+ pitting edema) Neurologic/Psychiatric: Alert, Oriented x3, No Motor/Sensory Deficits, Normal Mood/Affect, nailer hand II-XII Norm as Tested Skin: Normal Color, Warm/Dry Results/Procedures Lab Laboratory Tests 08/25/21 06:13 Patient resulted labs reviewed. 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 Was off oxygen but feels dyspneic with ambulation. Otherwise no complaints. Currently on oxygen for comfort. Would like to get up and walk later today. Has mild hyperkalemia and BP well controlled so will hold losartan this AM and check. Hopefully home in the next day or two if he continues to do well. Supervisory-Addendum Brief Verification & Attestation Participated in pt care: history, MDM, physical Personally performed: exam, history, MDM, supervision of care Care discussed with: Medical Student Procedures: n/a Results interpretation: Verified all documentation Verification and Attestation of Medical Student E/M Service A medical student performed and documented this service in my presence. I reviewed and verified all information documented by the medical student and made modifications to such information, when appropriate. I personally performed the physical exam and medical decision making. Inez Jaimes, Aug 25, 2021,12:37 NATALIE BURGESS MED STUDENT Aug 25, 2021 10:33 INEZ JAIMES MD Aug 25, 2021 12:40
[2021-08-25 11:17] VITALS: BP 124/70
[2021-08-25 16:14] VITALS: BP 139/74
[2021-08-25] MEDS: SIMvastatin 20 MG (ZOCOR) TAB PO SCH (20:27)
[2021-08-25] MEDS: MAGNESIUM OXIDE (MAG-OX)400 MG TAB PO SCH (20:27)
[2021-08-26] VITALS: BP 106/62
[2021-08-26] MEDS: LEVOTHYROXINE 125 MCG (LEVOTHROID) TABLET PO SCH (05:19)
[2021-08-26] MEDS: UMECLIDINIUM BROMIDE (INCRUSE ELLIPTA) 7'S IH SCH (07:30)
[2021-08-26] MEDS: RT-ALBUTEROL/IPRATROPIUM 3 ML (DUONEB) VIAL INH SCH ×2 (07:30→11:52)
[2021-08-26] MEDS: RT--FLUTICASONE/SALMETEROL 232-14 (AIRDUO RespiCLICK) IH SCH (07:30)
[2021-08-26 08:00] VITALS: BP 131/77
[2021-08-26] MEDS: PANTOPRAZOLE 20 MG TABLET (PROTONIX) PO SCH (08:15)
[2021-08-26] MEDS: ASPIRIN E.C. 81 MG (ECOTRIN) TAB PO SCH (08:15)
[2021-08-26] MEDS: AZITHROMYCIN 250 MG TAB (ZITHROMAX) PO SCH (08:15)
[2021-08-26] MEDS: cefTRIAXone 1,000 MG in WATER (STERILE) FOR INJECTION 10 ML IV SCH (08:15)
[2021-08-26] MEDS: APIXABAN 5 MG (ELIQUIS) TABLET PO SCH (08:15)
[2021-08-26] MEDS ORDERED: CEFD300C3 PO (11:04)
--- NOTE | 2021-08-26 12:11 | Physical Therapy Daily Note ---
PT Daily Note-Current Subjective Pt in recliner upon arrival w/ nursing in room. Pt states he is upset because he thought he was leaving today. Mental Status Patient Orientation: Person Transfers SCALE: Activities may be completed with or without assistive devices. 7-Kejrsjneyu-opgipid completes the activity by him/herself with no assistance from a helper. 5-Set-up or Clean-up Assistance-helper sets up or cleans up; patient completes activity. [place] assists only prior to or following the activity. 4-Supervision or Touching Assistance-helper provides verbal cues and/or touching/steadying and/or contact guard assistance as patient completes activity. Assistance may be provided throughout the activity or intermittently. 3-Partial/Moderate Assistance-helper does LESS THAN HALF the effort. [place] lifts, holds or supports trunk or limbs, but provides less than half the effort. 2-Substantial/Maximal Assistance-helper does MORE THAN HALF the effort. [place] lifts or holds trunk or limbs and provides more than half the effort. 2-Qcwmraljn-wruiop does ALL the effort. Patient does none of the effort to complete the activity. Or, the assistance of 2 or more helpers is required for the patient to complete the activity. If activity was not attempted, code reason: 7-Patient Refused. 9-Not Applicable-not attempted and the patient did not perform the activity before the current illness, exacerbation or injury. 10-Not Attempted due to Environmental Limitations-(lack of equipment, weather restraints, etc.). 88-Not Attempted due to Medical Conditions or Safety Concerns. Weight Bearing Right Lower Extremity: Right Full Weight Bearing Left Lower Extremity: Left Full Weight Bearing Exercises Seated Therapy Exercises: Ankle pumps, Long arc quads, Hip flexion Seated Reps: 10 Treatments Pt performs seated ex in recliner and left with all needs met, call light in hand. Assessment Current Status: Fair Progress Pt limited self today d/t being upset about d/c info. PT Short Term Goals Short Term Goals Time Frame: Aug 31, 2021 Roll Left & Right: 6 Sit to lyin Lying to sitting on side of be: 6 Sit to stand: 6 Chair/fnc-xs-cnylh transfer: 6 PT Director Of Compensation Goals Director Of Compensation Goals PT Director Of Compensation Goals Time Frame: Sep 07, 2021 Roll Left & Right (QC): 6 Sit to Lying (QC): 6 Lying-Sitting on Side/Bed(QC): 6 Sit to Stand (QC): 6 Chair/Tgd-nn-Ozwej Xfer(QC): 6 Toilet Transfer (QC): 6 Car Transfer (QC): 6 Does the Patient Walk: Yes Walk 10 feet (QC): 6 Walk 50ft with 2 Turns (QC): 6 Walk 150 ft (QC): 9 Walking 10ft on Uneven Surface: 6 1 Step (curb) (QC): 4 4 Steps (QC): 9 12 Steps (QC): 9 Picking up an Object (QC): 9 Does the Pt use WC or Scooter?: No Wheel 50 feet with 2 turns (QC: 9 Type: N/A Wheel 150 feet: 9 Type: N/A PT Plan Treatment/Plan Treatment Plan: Continue Plan of Care Treatment Plan: Bed Mobility, Education, Functional Activity Gopal, Functional Strength, Gait, Safety, Therapeutic Exercise, Transfers Treatment Duration: Sep 07, 2021 Frequency: 6 times per week Estimated Hrs Per Day: .25 hour per day Patient and/or Family Agrees t: Yes Time/GCodes Time In: 1201 Time Out: 1209 Total Billed Treatment Time: 8 Total Billed Treatment 1, 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
--- NOTE | 2021-08-26 12:32 | Discharge Summary ---
Discharge Summary Instructions for Patient Via [facility], Assessment/Instructions Take medications as prescribed. Complete your course of antibiotics even if you are feeling better. Follow up with your PCP. Return with worsening shortness of breath or if you feel like you are getting worse. Physician to follow Patient: Alisa Discharge Diet for Home: No Restrictions Hospital Course Date of Admission: Aug 23, 2021 at 08:40 Admission Diagnosis : Severe sepsis due to pnuemonia Family Physician/Provider: José Miguel Cuellar MD Date of Discharge: 08/26/21 Discharge Diagnosis: Severe sepsis due to pnuemonia Hospital Course: Benjamin Jacob is an 89 year old male who was admitted with severe sepsis due to pneumonia. He was treated with IV antibiotics. He required supplemental oxygen initially. At the time of discharge he was not requiring any oxygen. He was given a course of Omnicef to complete as an outpatient. He had a lactic acidosis which improved with IV fluids. He was discharged home in stable condition. He should follow up with his PCP in a week or two. He was set up with home health care. Labs and Pending Lab Test: Microbiology 08/23/21 Blood Culture - Preliminary, Resulted No growth Home Meds Active Cefdinir 300 Mg Capsule 300 Mg PO BID 3 Days Reported Breztri Aerosphere Inhaler (Budesonide/Glycopyr/Formoterol) 10.7 Gm Hfa.aer.ad 2 Puff IH BID Levothyroxine Sodium 125 Mcg Tablet 125 Mcg PO DAILY Magnesium Oxide 400 Mg Tablet 800 Mg PO HS Synjardy 12.5-1,000 mg Tablet (Empagliflozin/Metformin HCl) 1 Each Tablet 2 Each PO DAILY Glimepiride 4 Mg Tablet 4 Mg PO DAILY Vitamin B-12 (Cyanocobalamin (Vitamin B-12)) 2,500 Mcg Tab.subl 2,500 Mcg SL DAILY Ventolin Hfa (Albuterol Sulfate) 18 Gm Hfa.aer.ad 2 Puff INH Q4H PRN Eliquis (Apixaban) 5 Mg Tablet 5 Mg PO BID Irbesartan 150 Mg Tablet 150 Mg PO DAILY Diltiazem 24Hr ER (Diltiazem HCl) 240 Mg Cap.er.24h 240 Mg PO DAILY Tizanidine HCl 2 Mg Tablet 2 Mg PO HS Aspirin EC (Aspirin) 81 Mg Tablet.dr 81 Mg PO DAILY Omeprazole 20 Mg Capsule.dr 20 Mg PO DAILY Preservision Areds 2 Softgel (Vit C/E/Zn/Coppr/Lutein/Zeaxan) 1 Each Capsule 1 Cap PO BID Fish Oil 1,000 mg Softgel ([place]-3/Dha/Epa/Fish Oil) 1 Each Capsule 1,000 Mg PO DAILY Furosemide 40 Mg Tablet 40 Mg PO DAILY Simvastatin 20 Mg Tablet 20 Mg PO HS Patient Allergies: Coded Allergies: No Known Drug Allergies (Verified , 07/15/18) Height (Feet): 5 Height (Inches): 11.00 Weight (Pounds): 230 Weight (Ounces): 0.0 Home Health Need/Face to Face Date of Face to Face: Aug 26, 2021 Clinical Findings: Generalized weakness and fatigue, Instability, Muscle weakness, Unsteady gait I have seen Pt [id number]: Yes Discharged To: Home Diagnosis/Conditions: Pneumonia T2DM COPD HFpEF Problems/Diagnosis/Condition: (1) T2DM (type 2 diabetes mellitus) (2) (HFpEF) heart failure with preserved ejection fraction (3) COPD (chronic obstructive pulmonary disease) (4) Pneumonia Patient is Homebound due to: Gina fall risk due to instabilty, Muscle weakness Homebound Status Due to the above stated illness, injury or surgical procedure (medical condition or diagnosis) and associated clinical findings, the patient is homebound because of his/her inability to leave home except with aid of a supportive device and/or person AND leaving the home requires a considerable and taxing effort or is medically contraindicated. Pt req the following assistanc: Aid of another person, Cane Home Health Nursing Orders Home Health Services Order: Nursing Services, Seed Pot[employer] Arranger-Evaluate & Treat, Physical Therapy-Evaluate & Treat Home Health Infusion Therapy Line Start Date: Aug 23, 2021 Therapy Orders Therapy Orders: OT (must have SN or PT order), Physical Therapy Therapy Specific Orders: Eval assistive deivces, Teach enviro modifications/safety, Gait training, Increase strength/endurance Certify Stmt I certify that this patient is under my care and that I, a nurse practitioner or a physician; a staff assistant working with me, had a face to face encounter that - meets the physician face to face encounter requirements with this patient as dated. Discharge Physical Exam General: Alert, Oriented X3, Cooperative, No Acute Distress HEENT: Atraumatic, EOMI, Mucous Memb Moist/[place] Lungs: Clear to Auscultation, Normal Air Movement Heart: Regular Rate, Normal S1, Normal S2, No Murmurs Abdomen: Normal Bowel Sounds, Soft, No Tenderness Extremities: No Edema, No Tenderness/Swelling Skin: No Rashes, No Significant Lesion Neuro: Normal Speech, Normal Tone Psych/Mental Status: Mental Status NL, Mood NL KIYA ARGUELLES MD Aug 26, 2021 12:31
[2021-08-26 13:49] VITALS: BP 131/77
== END 2021-08-26 14:44 | disposition home health service (06) | DRG 871 ==
LOC: EDUNIT# 07:09 → ER 07:10 → CSD 08:40 → 4TH 08-24 15:17
PROVIDERS: ADMIT Family Medicine; ATTEND Family Medicine
DX: A41.9 Sepsis, unspecified organism (principal); J18.9 Pneumonia, unspecified organism; I50.33 Acute on chronic diastolic (congestive) heart failure; J96.01 Acute respiratory failure with hypoxia; J44.0 Chronic obstructive pulmonary disease with (acute) lower respiratory infection; R65.20 Severe sepsis without septic shock; I49.1 Atrial premature depolarization; E11.9 Type 2 diabetes mellitus without complications; I11.0 Hypertensive heart disease with heart failure; F41.9 Anxiety disorder, unspecified; F32.9 Major depressive disorder, single episode, unspecified; E03.9 Hypothyroidism, unspecified; H54.7 Unspecified visual loss; K21.9 Gastro-esophageal reflux disease without esophagitis; I25.10 Atherosclerotic heart disease of native coronary artery without angina pectoris; E78.00 Pure hypercholesterolemia, unspecified; H91.90 Unspecified hearing loss, unspecified ear; G47.30 Sleep apnea, unspecified; E87.5 Hyperkalemia; Z20.822 Contact with and (suspected) exposure to COVID-19; Z87.891 Personal history of nicotine dependence; Z92.3 Personal history of irradiation; Z95.0 Presence of cardiac pacemaker; Z79.84 Long term (current) use of oral hypoglycemic drugs; Z79.899 Other long term (current) drug therapy; Z79.01 Long term (current) use of anticoagulants; Z79.890 Hormone replacement therapy; Z95.1 Presence of aortocoronary bypass graft; Z85.46 Personal history of malignant neoplasm of prostate; Z99.89 Dependence on other enabling machines and devices
CPT/HCPCS: 36415; 71045; 80048; 83605; 83880; 84484; 85007; 85025; 85027; 85610; 85730; 87040; 87636; 93005; 94640; 94760; 94761